=== PATIENT | male | born 1945 | race Caucasian/White ===

== ENCOUNTER → 2024-01-19 09:04 | Outpatient (REF) | payer MEDICARE, SELFPAY | LOC: RCS 09:04 | PROVIDERS: ATTENDING PHYSICIAN Internal Medicine Cardiovascular Disease; FAMILY PHYSICIAN Family Medicine | DX: I27.20 Pulmonary hypertension, unspecified (principal); I34.0 Nonrheumatic mitral (valve) insufficiency; I07.1 Rheumatic tricuspid insufficiency | CPT/HCPCS: 93306 ==

== ENCOUNTER 2024-02-29 13:09 | Emergency (ER) | payer MEDICARE, SELFPAY ==
[2024-02-29] VITALS (7 sets, daily range): BP systolic 146–176; BP diastolic 69–79; PULSE 85–91
--- NOTE | 2024-02-29 13:41 | ED.GENMED ---
ED Provider Triage
<Yoly Hancock HOMEOPATHIC DOCTOR - Last Filed: 03/01/24 13:20>
-
Patient seen by provider in Triage?: Seen in Triage
Attestation: A medical screening examination has been initiated by a qualified medical provider. Based on the assessment performed at this time, it has been determined that an emergent medical condition may exist and the patient has been informed
that further medical evaluation and possible additional diagnostic testing may be needed.
HPI: 78 yo male states 11 a.m. after eating toast and fruit, was working out in yard, taking down tent, raking leaves, felt lightheaded started to feel faint, walked to his deck, sat down, saw him go 'limp' she ran in and got water, poured it
on him. Covered him from the sun, shook and called him, neighbor put cold packs on him, he came to after about 30 seconds, neighbor took pulse, initially 40 then he drank and became more alert and HR was 52. Denies CP, SOB, abdominal pain.
GENERAL: Alert , in no apparent distress
EYE: No visual abnormalities
HEART: RRR. HR 65
LUNGS: No acute respiratory distress
NEUROLOGICAL: Alert and oriented
SKIN: Skin intact. No visible changes.
MUSCULOSKELETAL: Moving extremities normally
PSYCH: Normal and appropriate interaction.
This is a medical evaluation conducted in person to initiate diagnostic evaluation and provide initial therapeutics. Please see further documentation by the treating clinician.
History of Present Illness
<Yoly Hancock HOMEOPATHIC DOCTOR - Last Filed: 03/01/24 13:20>
General
Chief Complaint: Fainting/Passed Out
Time Seen by Provider: 02/29/24 16:47
<Winnie Ruiz MD, Resident - Last Filed: 02/29/24 19:33>
General
Source: patient and spouse
Nursing documentation reviewed up to this point in time: agreed with
History of Present Illness
History of Present Illness:
HPI:
78 yo male with a relevant PMHx of Atrial Flutter currently on treatment with Eliquis 5mg BID, presenting today for a syncope episode this afternoon, while performing some work outside his home at the patio under the sun.
Patient stated he wanted to take a break and seat while performing some work at his patio and upon attempting to seat he got to seat and subsequently LOC for around 20 seconds, until started throwing water at him slowly gaining consciousness
back.
Patient denies any confusion, dizziness, sudden weakness, or changes in vision - Pre or Post Syncope. He stated he has experienced this syncope episodes before in the past and states it was also associated with LOC for around ~20 sec, at that time
too; but while resting in the couch in the face of no physical activity nor external triggers about 2 years ago while at home.
If applicable-neuro sx onset
Onset of symptoms known: Yes
Date of onset of symptoms: 02/29/24
Time pt last seen normal is known: Yes
Date last time pt seen normal: 02/29/24
Time last time pt seen normal: 19:00
Past History
<Yoly Hancock, HOMEOPATHIC DOCTOR - Last Filed: 03/01/24 13:20>
Past History
ED Past Medical History: Arrthythmia (Atrial flutter) and HTN
ED Past Surgical History: Appendectomy
Social History
Tobacco: Non-smoker
<Winnie Ruiz MD, Resident - Last Filed: 02/29/24 19:33>
Past History
ED Past Medical History: Valvular disease
Patient has exhibited threatening behavior?: No
Review of Systems
<Winnie Ruiz MD, Resident - Last Filed: 02/29/24 19:33>
Review of Systems
All Other Systems: ROS reviewed and negative except as documented in HPI and ROS
Constitutional: Reports other (Generalized Post-Syncope Sweatiness )
EENT: Reports no symptoms
Respiratory: Reports no symptoms
Cardiac: Reports diaphoresis and syncope
ABD/GI: Reports nausea and vomiting
: Reports no symptoms
Musculoskeletal: Reports no symptoms
Skin: Reports no symptoms
Neurological: Reports other (Syncope / Denies any associated symptoms )
Endocrine: Reports temp intolerance
Hematologic/Lymphatic: Reports no symptoms
Psychiatric: Reports no symptoms
Phy Exam
<Jym Cb Ruiz MD, Resident - Last Filed: 02/29/24 19:33>
Physical Exam
Physical Exam:
VITALS - Stable / AF
PE:
Gen: AOOx3 / In NAD
HEENT: EOMI/THERESA
NEURO: No Speech difficulties or focal Deficits noted
Cardiac: No JVD, No LE Edema
Cardiovascular Exam
Cardiovascular Exam: no edema and no JVD
Neurological Exam
Neurological Exam: alert, oriented x3, no motor deficits, no sensory deficits, speech normal and normal gait
Musculoskeletal Exam
Musculoskeletal Exam: full ROM and no edema
Skin Exam
Skin Exam: normal color, no rash, no petechia and redness
Psychiatric Exam
Psychiatric Exam: normal mood/affect
Course
<Yoly Hancock, HOMEOPATHIC DOCTOR - Last Filed: 03/01/24 13:20>
Orders/Labs/Results
Orders:
Orders
02/29/24 13:11
Electrocardiogram (*1) Urgent
Reason for Study: Chest Pain
02/29/24 13:12
EKG- Treatment ONCE
02/29/24 13:53
Complete Blood Count/With Diff Urgent
02/29/24 17:09
Comprehensive Metabolic Panel Urgent
Troponin I Urgent
02/29/24 18:44
Orthostatic VS- Treatment ONCE
Abnormal Lab Results
02/29/24 02/29/24
13:53 17:09
WBC 14.2 H 10^3/uL
(4.8-10.8)
Hct 38.8 L %
(39.0-52.0)
MCV 79.7 L fL
(80.0-94.0)
Plt Count 405 H 10^3/uL
(130-400)
Abs Immat Gran (auto) 0.1 H 10^3/uL
(0-0.05)
Absolute Neuts (auto) 10.9 H 10^3/uL
(1.4-6.5)
Absolute Monos (auto) 1.1 H 10^3/uL
(0.1-0.6)
Neutrophils % 76.7 H %
(42.2-75.2)
Lymphocytes % 11.3 L %
(20.5-51.1)
Chloride 94 L mmol/L
(98-107)
Glucose 170 H mg/dl
(70-99)
Albumin 5.1 H g/dl
(3.5-5.0)
02/29/24 13:53
02/29/24 17:09
Vital Signs
Initial and Last Documented VS:
Initial Vital Signs
Temp Pulse Resp BP Pulse Ox
97.7 F 63 16 152/73 99
02/29/24 13:41 02/29/24 13:41 02/29/24 13:41 02/29/24 13:41 02/29/24 13:41
Last Documented Vital Signs
Temp Pulse Resp BP Pulse Ox
97.7 F 81 12 168/72 99
02/29/24 13:41 02/29/24 19:30 02/29/24 19:30 02/29/24 19:00 02/29/24 19:30
<Jym Cb Ruiz MD, Resident - Last Filed: 02/29/24 19:33>
Orders/Labs/Results
Orders:
Orders
02/29/24 13:11
Electrocardiogram (*1) Urgent
Reason for Study: Chest Pain
02/29/24 13:12
EKG- Treatment ONCE
02/29/24 13:53
Complete Blood Count/With Diff Urgent
02/29/24 17:09
Comprehensive Metabolic Panel Urgent
Troponin I Urgent
02/29/24 18:44
Orthostatic VS- Treatment ONCE
Abnormal Lab Results
02/29/24 02/29/24
13:53 17:09
WBC 14.2 H 10^3/uL
(4.8-10.8)
Hct 38.8 L %
(39.0-52.0)
MCV 79.7 L fL
(80.0-94.0)
Plt Count 405 H 10^3/uL
(130-400)
Abs Immat Gran (auto) 0.1 H 10^3/uL
(0-0.05)
Absolute Neuts (auto) 10.9 H 10^3/uL
(1.4-6.5)
Absolute Monos (auto) 1.1 H 10^3/uL
(0.1-0.6)
Neutrophils % 76.7 H %
(42.2-75.2)
Lymphocytes % 11.3 L %
(20.5-51.1)
Chloride 94 L mmol/L
(98-107)
Glucose 170 H mg/dl
(70-99)
Albumin 5.1 H g/dl
(3.5-5.0)
02/29/24 13:53
02/29/24 17:09
Vital Signs
Initial and Last Documented VS:
Initial Vital Signs
Temp Pulse Resp BP Pulse Ox
97.7 F 63 16 152/73 99
02/29/24 13:41 02/29/24 13:41 02/29/24 13:41 02/29/24 13:41 02/29/24 13:41
Last Documented Vital Signs
Temp Pulse Resp BP Pulse Ox
97.7 F 81 12 168/72 99
02/29/24 13:41 02/29/24 19:30 02/29/24 19:30 02/29/24 19:00 02/29/24 19:30
<Tong Macario MD - Last Filed: 02/29/24 22:12>
Orders/Labs/Results
Orders:
Orders
02/29/24 13:11
Electrocardiogram (*1) Urgent
Reason for Study: Chest Pain
02/29/24 13:12
EKG- Treatment ONCE
02/29/24 13:53
Complete Blood Count/With Diff Urgent
02/29/24 17:09
Comprehensive Metabolic Panel Urgent
Troponin I Urgent
02/29/24 18:44
Orthostatic VS- Treatment ONCE
Abnormal Lab Results
02/29/24 02/29/24
13:53 17:09
WBC 14.2 H 10^3/uL
(4.8-10.8)
Hct 38.8 L %
(39.0-52.0)
MCV 79.7 L fL
(80.0-94.0)
Plt Count 405 H 10^3/uL
(130-400)
Abs Immat Gran (auto) 0.1 H 10^3/uL
(0-0.05)
Absolute Neuts (auto) 10.9 H 10^3/uL
(1.4-6.5)
Absolute Monos (auto) 1.1 H 10^3/uL
(0.1-0.6)
Neutrophils % 76.7 H %
(42.2-75.2)
Lymphocytes % 11.3 L %
(20.5-51.1)
Chloride 94 L mmol/L
(98-107)
Glucose 170 H mg/dl
(70-99)
Albumin 5.1 H g/dl
(3.5-5.0)
02/29/24 13:53
02/29/24 17:09
Vital Signs
Initial and Last Documented VS:
Initial Vital Signs
Temp Pulse Resp BP Pulse Ox
97.7 F 63 16 152/73 99
02/29/24 13:41 02/29/24 13:41 02/29/24 13:41 02/29/24 13:41 02/29/24 13:41
Last Documented Vital Signs
Temp Pulse Resp BP Pulse Ox
97.7 F 81 12 168/72 99
02/29/24 13:41 02/29/24 19:30 02/29/24 19:30 02/29/24 19:00 02/29/24 19:30
<Winnie Ruiz MD, Resident - Last Filed: 02/29/24 19:33>
*Critical Care Note
Total Time (30-74mins, 75-104mins- exclusive of procedures): Not Applicable (~45 Min.)
ED Attending Note
<Yoly Hancock NP - Last Filed: 03/01/24 13:20>
-
Portions of this chart may have been created with voice recognition software.� Occasional wrong word or��sound alike� substitutions may have occurred due to the inherent limitations of voice recognition software.
<Tong Macario MD - Last Filed: 02/29/24 22:12>
ED Attending Note
Patient seen and examined by attending physician: Yes
ED Attending Note:
Patient presents to ED for an evaluation after witnessed syncopal episode at home, lasting approximately 20 seconds. Patient states that he was out in the backyard working for approximately 2 hours, prior to lunch, when he felt tired and wanted to
sit down. He was able to walk back to his deck and sat down on a chair. This is when his who was nearby noticed patient slumping over. immediately attends the patient and he woke up immediately. When he did wake up, patient was not
confused, but was at his baseline mental status. Patient denies preceding dizziness or chest palpitations. Even when he woke up, patient states that he did not have any symptoms. However, patient did have 1 vomiting episode shortly after he woke
up. In addition, his neighbor who is a nurse, came and checked him out. His pulse was noted to be low, which improved over time. Patient reports having had similar passing out experience lasting very short duration 2 or 3 years ago. At the time
of evaluation ED, patient is without any complaints, and requesting to be discharged home.
Physical Exam
General: no apparent distress, not acutely ill. afebrile
Head: nc/at. eomi
Neck: supple. no meningeal signs.
Heart: s1/s2 regular rate and rhythm, no murmur. equal radial pulses.
Lungs: no acute respiratory distress. clear bilaterally
Abdomen: normal bowel sounds. not tender.
Neuro: alert and oriented. no focal neurological deficits
Skin: no rash
Psychiatric: well kept. interactive and cooperative
Extremities: no edema. no calf tenderness.
Patient with an unremarkable workup in ED, including blood work, EKG, and orthostatic vital signs. Patient remains asymptomatic with stable vital signs during observation. Patient's presenting symptoms likely vasovagal syncope, secondary to
dehydration along with lack of oral intake. Patient otherwise is stable to be discharged home, with recommendation to follow-up with PCP as an outpatient. Patient and spouse expressed understanding at time of discharge.
Discharge Plan
Departure
Patient Disposition: Home (Routine Discharge)
Date of Disposition: 02/29/24
Time of Disposition: 19:37
Patient with high blood pressure during this ER visit?: Yes
Discharge Problem:
Vasovagal syncope
Instructions: Vasovagal Response (DC)
Prescriptions:
No Action
Eliquis
5 mg PO BID
amlodipine
10 mg PO DAILY
magnesium oxide
400 mg PO DAILY
sotalol
80 mg PO BID
valsartan
80 mg PO DAILY
Activity Restrictions/Additional Instructions:
As discussed, please follow-up with your primary care physician for reevaluation.
Interventions
Interventions:
*Risk Screen - Suicide Last Done: 02/29/24 18:26
*General Assessment Last Done: 02/29/24 18:26
*Neglect/Abuse Screening Last Done: 02/29/24 18:26
ED- Fall Risk Assessment Last Done: 02/29/24 17:30
*ED COVID-19 Vaccine History Last Done: 02/29/24 13:41
*Nursing Disposition Last Done: 02/29/24 19:51
ED- Cardiac Assessment Last Done: 02/29/24 17:30
ED- Neurological Assessment Last Done: 02/29/24 17:30
Discharge Date and Time
Discharge Date/Time: 02/29/24 19:52
Print Language: ARMENIAN
[2024-02-29 14:06] LABS: % Basophils 0.4 % (0-2); % Eosinophils 3.5 % (0-6); % Immature Granulocytes 0.4 % (0-0.5); % Lymphocytes 11.3 % (20.5-51.1); % Monocytes 7.7 % (1.7-9.3); % Neutrophils 76.7 % (42.2-75.2); Absolute Basophils 0.1 10^3/uL (0-0.2); Absolute Eosinophils 0.5 10^3/uL (0-0.7); Absolute Immature Granulocytes 0.1 10^3/uL (0-0.05); Absolute Lymphocytes 1.6 10^3/uL (1.2-3.4); Absolute Monocytes 1.1 10^3/uL (0.1-0.6); Absolute Neutrophils 10.9 10^3/uL (1.4-6.5); Hematocrit 38.8 % (39.0-52.0); Hemoglobin 13.4 g/dL (13.0-18.0); Mean Corp Hgb Conc. 34.5 g/dL (33.0-37.0); Mean Corpuscular Hgb 27.5 pg (27.0-31.0); Mean Corpuscular Volume 79.7 fL (80.0-94.0); Mean Platelet Volume 9.1 fL (7.4-10.4); Nucleated Red Blood Cells % 0 % (-); Platelet Count 405 10^3/uL (130-400); Red Blood Cell Count 4.87 10^6/uL (4.70-6.10); Red Cell Dist. Width 14.5 % (11.5-14.5); White Blood Cell Count 14.2 10^3/uL (4.8-10.8)
[2024-02-29 17:44] LABS: ALT (SGPT) 29 U/L (0-50); AST (SGOT) 26 U/L (17-59); Albumin 5.1 g/dl (3.5-5.0); Alkaline Phosphatase 52 U/L (38-126); Blood Urea Nitrogen 15 mg/dl (9-20); Calcium 10.1 mg/dl (8.4-10.2); Carbon Dioxide 26 mmol/L (22-30); Chloride 94 mmol/L (98-107); Glucose 170 mg/dl (70-99); Potassium 4.4 mmol/L (3.5-5.1); Sodium 136 mmol/L (135-145); Total Bilirubin 0.8 mg/dl (0.2-1.3); eGFR > 60.00
[2024-02-29 17:45] LABS: Troponin I < 0.012 ng/ml
== END 2024-02-29 19:52 | disposition home or self-care (01) ==
LOC: EMR 13:09
PROVIDERS: Registered Nurse; EMERGENCY PHYSICIAN Emergency Medicine; FAMILY PHYSICIAN Nurse Practitioner Acute Care
DX: R55 Syncope and collapse (principal); Y93.H1 Activity, digging, shoveling and raking; I48.92 Unspecified atrial flutter; I10 Essential (primary) hypertension; Z90.49 Acquired absence of other specified parts of digestive tract
CPT/HCPCS: 99283; 80053; 84484; 85025; 93005

== ENCOUNTER 2024-04-05 10:48 | Outpatient (RCR) | payer MEDICARE, SELFPAY | END 2024-04-05 23:59 | disposition home or self-care (01) | LOC: RPT 10:48 | PROVIDERS: ATTENDING PHYSICIAN Family Medicine | DX: M47.896 Other spondylosis, lumbar region (principal); Z73.6 Limitation of activities due to disability; R26.89 Other abnormalities of gait and mobility | CPT/HCPCS: 97110; 97162 ==

== ENCOUNTER 2024-05-03 08:51 | Outpatient (RCR) | payer MEDICARE, SELFPAY | END 2024-05-03 23:59 | disposition home or self-care (01) | LOC: RPT 08:51 | PROVIDERS: ATTENDING PHYSICIAN Family Medicine | DX: M47.896 Other spondylosis, lumbar region (principal); Z73.6 Limitation of activities due to disability; R26.89 Other abnormalities of gait and mobility | CPT/HCPCS: 97010; 97110; 97112; 97164 ==

== ENCOUNTER 2024-05-13 15:27 | Outpatient (RCR) | payer MEDICARE, SELFPAY | END 2024-05-16 07:42 | disposition home or self-care (01) | LOC: RPT 15:27 | PROVIDERS: ATTENDING PHYSICIAN Family Medicine | DX: M47.896 Other spondylosis, lumbar region (principal); H81.10 Benign paroxysmal vertigo, unspecified ear; Z73.6 Limitation of activities due to disability; R26.89 Other abnormalities of gait and mobility | CPT/HCPCS: 97110 ==

== ENCOUNTER 2024-08-10 19:52 | Inpatient (IN) | payer MEDICARE, SELFPAY ==
[2024-08-10 17:13] VITALS: BP 163/65
[2024-08-10 17:18] VITALS: BMI 28.7
[2024-08-10 17:28] LABS: % Basophils 0.4 % (0-2); % Eosinophils 0.5 % (0-6); % Immature Granulocytes 0.6 % (0-0.5); % Lymphocytes 5.7 % (20.5-51.1); % Monocytes 11.9 % (1.7-9.3); % Neutrophils 80.9 % (42.2-75.2); Absolute Basophils 0.1 10^3/uL (0-0.2); Absolute Eosinophils 0.1 10^3/uL (0-0.7); Absolute Immature Granulocytes 0.1 10^3/uL (0-0.05); Absolute Lymphocytes 0.8 10^3/uL (1.2-3.4); Absolute Monocytes 1.7 10^3/uL (0.1-0.6); Absolute Neutrophils 11.2 10^3/uL (1.4-6.5); Hematocrit 35.8 % (39.0-52.0); Hemoglobin 12.3 g/dL (13.0-18.0); Mean Corp Hgb Conc. 34.4 g/dL (33.0-37.0); Mean Corpuscular Hgb 27.7 pg (27.0-31.0); Mean Corpuscular Volume 80.6 fL (80.0-94.0); Mean Platelet Volume 9.5 fL (7.4-10.4); Nucleated Red Blood Cells % 0 % (-); Platelet Count 298 10^3/uL (130-400); Red Blood Cell Count 4.44 10^6/uL (4.70-6.10); Red Cell Dist. Width 14.4 % (11.5-14.5); White Blood Cell Count 13.9 10^3/uL (4.8-10.8)
--- NOTE | 2024-08-10 17:31 | ED.GENMED ---
History of Present Illness
General
Chief Complaint: Breathing Problem
Source: patient
Exam Limitations: none
Time Seen by Provider: 08/10/24 17:12
Nursing documentation reviewed up to this point in time: agreed with
History of Present Illness
History of Present Illness:
Patient is an 79-year-old male with past medical history of a flutter/cardioversion and ablation on Eliquis, (has not missed a dose of Eliquis )hypertension presents to the ER for evaluation. Patient started with a cough last night into today and
reports around 2 to 4 PM he had a lot of coughing. Prior to arrival he had a coughing fit and was standing in his house and felt like he was in a pass out and apparently did. Patient apparently was hypoxic for EMS was placed on nonrebreather.
Patient feels mildly short of breath on arrival he denies any chest pain. He denies any fever chills.
Past History
Past History
ED Past Medical History: Arrthythmia (Atrial flutter), HTN and Valvular disease
ED Past Surgical History: Appendectomy
Patient has exhibited threatening behavior?: No
Social History
Tobacco: Non-smoker
Review of Systems
Review of Systems
Allergies reviewed?: Yes
All Other Systems: ROS reviewed and negative except as documented in HPI and ROS
Constitutional: Reports fever
EENT: Reports no symptoms
Respiratory: Reports cough and trouble breathing
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
ABD/GI: Reports no symptoms
: Reports no symptoms
Musculoskeletal: Reports no symptoms
Skin: Reports no symptoms
Neurological: Reports no symptoms; Denies headache
Psychiatric: Reports no symptoms
Phy Exam
General Physical Exam
General Presentation: no apparent distress
General age: appears stated age
General Skin: warm and dry
General Habitus: elderly
General Mental: alert
General Hydration: appears well hydrated
Cardiovascular Exam
Cardiovascular Exam: regular rate/rhythm, no murmur and normal peripheral pulses
Pulmonary Exam
Pulmonary Exam: lungs clear
Neurological Exam
Neurological Exam: alert and oriented x3
Musculoskeletal Exam
Musculoskeletal Exam: full ROM
Skin Exam
Skin Exam: normal color and warm/dry
Scores
Heart Failure Risk
Heart Failure Risk Score: Not Applicable
Course
Orders/Labs/Results
Orders:
Orders
08/10/24 Dinner
Cholesterol Lowering
At Your Request: Limited, Film Numberer Required
Fluid Restriction: 1440 mL/day (48 oz)
Cholesterol Lowering: Sodium, 2 Gram
08/10/24 17:17
Electrocardiogram (*1) Urgent
Reason for Study: Syncope
EKG- Treatment ONCE
08/10/24 17:19
BNP [NT-proBNP] Urgent
Comment: ADDON
Complete Blood Count/With Diff Urgent
Comprehensive Metabolic Panel Urgent
Troponin I Urgent
Comment: ADDON
08/10/24 17:30
CT Cervical Spine W/o Iv Contr Urgent
Comment:
Reason For Exam: trauma
CT Head W/o Iv Contrast Urgent
Comment:
Reason For Exam: trauma
Chest [CR Chest - 2 Views ] Urgent
Comment:
Reason For Exam: cough/sob
08/10/24 17:32
COVID-19 Antigen Urgent
Source: Nasal Swab
Influenza A+B Rapid Molecular Urgent
PERI Source: Nasal Swab
Specimen Description:
0.9% Sodium Chloride 500 ml [Nss] 500 ml IV BOLUS
08/10/24 18:41
CefTRIAXone [Rocephin] 1,000 mg IV NOW STA
08/10/24 18:42
Azithromycin 500 mg/250 ml [Zithromax Infusion] 500 mg in 250 ml IV NOW
08/10/24 19:01
Lactic Acid Q4H
Comment: CANCEL 2nd LACTIC ACID IF 1st LACTIC ACID IS LESS THAN 2
Blood Culture Q30M
PERI Source: Blood/Venous
Specimen Description:
08/10/24 19:08
Admit/Transfer Patient As Directed
Co-Sign Provider:
Level of Care: Inpatient admission
Assign to:: Telemetry
Physician / Group: Jeff Shankar
Diagnosis: Covid, Pneumonia, hyponatremia
Reason for Telemetry: Syncope
Date to Stop Telemetry: 08/12/24
Time to Stop Telemetry: 11:00
Reason for Hospitalization: Covid, Pneumonia, hyponatremia
Expected length of stay greater than two midnights?: Yes
ELOS- Estimated Length of Stay in days: 3
I certify the patient meets the requirements for IP care: Yes
08/10/24 19:09
PRN Pain Medication Management As Directed
May give lesser potent ordered pain med per pt: Yes
preference::
Protocol:: Medication orders for pain may be administered in a
manner that supports deferring to patient preference
when the pt is:
- Requesting an ordered lesser potent pain medication.
Least to most potent pain medications are defined
as: acetaminophen < NSAID < tramadol < opioids
(morphine, oxycodone, hydromorphone).
- Requesting a lesser dose of the same medication IF
ORDERED.
- Requesting a less intrusive route of administration
if both routes are prescribed by the provider (PO <
IV).
08/10/24 19:10
Code Status As Directed
Resuscitation Status: Full Code
Blood Culture Q30M
PERI Source: Blood/Venous
Specimen Description:
08/10/24 19:12
Sterile Water [Sterile Water For Injection] 10 ml .ROUTE .STK-MED ONE
08/10/24 19:18
Aspirin 325 mg PO NOW STA
Doxycycline Hyclate [Vibramycin] 100 mg 0.9% Sodium Chloride 250 ml [Nss] 250 ml IV NOW
08/10/24 20:37
Acetaminophen [Tylenol] 650 mg PO Q4HPRN PRN
Apixaban [Eliquis] 5 mg PO BID
Remdesivir [Veklury] 200 mg 0.9% Sodium Chloride 250 ml [Nss] 210 ml IV ONCE
Patient has been symptomatic for </= 10 days?: Yes
Patient's SpO2 </= 94% on room air OR requiring oxygen?: Yes
Sotalol [Betapace] 80 mg PO BID
08/10/24 20:37
CARDIOLOGY CONSULT Routine
Consulting Provider: Merry Levine
Was physician already notified: Yes
Activity As Directed
Activity Level: Out of Bed-Early Mobility
Orthostatic Vital Signs As Directed
Orthostatic VS Frequency: BID
Vital Signs As Directed
Frequency: Per unit guidelines
Weight As Directed
Frequency: Once
Comment: on admission
08/10/24 20:46
Triamcinolone Acetonide [Triamcinolone Acetonide 0.5% Cream] 1 applic TOPICAL DAILYPRN PRN
08/10/24 22:00
Dexamethasone Sod Phosphate [Decadron] 6 mg IV Q24H
08/10/24 23:15
Troponin I Q6H
08/11/24 05:32
Basic Metabolic Panel IN AM
Complete Blood Count/No Diff IN AM
Troponin I Q6H
08/11/24 08:00
Amlodipine [Norvasc] 10 mg PO DAILY
Ascorbic Acid [Vitamin C] 500 mg PO DAILY
Cholecalciferol (Vitamin D3) [VITAMIN D3 (cholecalciferol)] 25 mcg PO DAILY
Doxycycline Hyclate [Vibramycin] 100 mg 0.9% Sodium Chloride 250 ml [Nss] 250 ml IV Q12H
Magnesium l-Lactate [Mag-Tab Sr] 84 mg PO DAILY
08/11/24 12:00
Remdesivir [Veklury] 100 mg 0.9% Sodium Chloride 250 ml [Nss] 230 ml IV DAILY@1200
08/12/24 11:00
DC Protocol for Telemetry ONCE
Abnormal Lab Results
08/10/24 08/10/24
17:19 17:32
WBC 13.9 H 10^3/uL
(4.8-10.8)
RBC 4.44 L 10^6/uL
(4.70-6.10)
Hgb 12.3 L g/dL
(13.0-18.0)
Hct 35.8 L %
(39.0-52.0)
Abs Immat Gran (auto) 0.1 H 10^3/uL
(0-0.05)
Absolute Neuts (auto) 11.2 H 10^3/uL
(1.4-6.5)
Absolute Lymphs (auto) 0.8 L 10^3/uL
(1.2-3.4)
Absolute Monos (auto) 1.7 H 10^3/uL
(0.1-0.6)
Immature Gran % 0.6 H %
(0-0.5)
Neutrophils % 80.9 H %
(42.2-75.2)
Lymphocytes % 5.7 L %
(20.5-51.1)
Monocytes % 11.9 H %
(1.7-9.3)
Sodium 129 L mmol/L
(135-145)
Chloride 93 L mmol/L
(98-107)
Carbon Dioxide 21 L mmol/L
(22-30)
Glucose 173 H mg/dl
(70-99)
Troponin I 0.035 H* ng/ml
SARS-CoV-2 Antigen Positive A
(Negative)
08/10/24 17:19
08/10/24 17:19
Vital Signs
Initial and Last Documented VS:
Initial Vital Signs
Temp Pulse Resp BP Pulse Ox
98.2 F 97 30 163/65 87
08/10/24 17:13 08/10/24 17:13 08/10/24 17:13 08/10/24 17:13 08/10/24 17:13
Last Documented Vital Signs
Temp Pulse Resp BP Pulse Ox
99.0 F 69 19 149/66 97
08/11/24 23:24 08/11/24 23:24 08/11/24 23:24 08/11/24 23:24 08/12/24 00:49
Sales Planner consulted with Physician
Sales Planner consulted with physician?: Yes
Name of Physician Consulted: Ilia
MDM/Problems Addressed
MDM/Problems Addressed:
As documented patient is a 79-year-old male with history of a flutter on Eliquis has not skipped a dose presenting to the ER for evaluation. Patient started with a cough last night and had a coughing fit prior to arrival and then had a syncopal
episode. This does sound like more of a vagal response. Upon EMS arrival he was short of breath and patient presented short of breath and hypoxic here. Pt placed on Oxygen NC.
He presented normal sinus rhythm no complaints of fever chills. Patient's COVID was found to be positive and on x-ray x-ray it appears there is a left lower lobe pneumonia. Patient does have an elevated white count though he is afebrile will
check blood cultures and lactic. In addition patient was found to have low sodium of 129. Cardiac troponin was done prior to my exam and cardiac troponin is elevated 4080. He has no history of CHF. Patient's troponin is also elevated though no
chest pain no acute findings on EKG.
*Radiology
Radiology exam reviewed: radiology read reviewed
*Pulse Oximetry
Patient hypoxic: yes
*EKG
Interpreted by ED Provider?: Yes
Interpretation: normal
Heart Rate: 92
Rate: normal
Rhythm: sinus
*Critical Care Note
Total Time (30-74mins, 75-104mins- exclusive of procedures): Not Applicable
ED Attending Note
-
Portions of this chart may have been created with voice recognition software.� Occasional wrong word or��sound alike� substitutions may have occurred due to the inherent limitations of voice recognition software.
Discharge Plan
Departure
Patient Disposition: Admit
Date of Disposition: 08/10/24
Time of Disposition: 18:47
Admit to: Telemetry
Admit to doctor: hospitalist
Presentation/result/management discussed w/ accepting MD/DO: Hospitalist
Patient with high blood pressure during this ER visit?: Yes
Condition: Fair
Covid-19: Confirmed COVID-19
Discharge Problem:
COVID-19, Syncope, Acute hyponatremia, hypoxia
Interventions
Interventions:
*Risk Screen - Suicide Last Done: 08/10/24 21:34
*General Assessment Last Done: 08/10/24 17:26
*Neglect/Abuse Screening Last Done: 08/10/24 17:26
*ED- Fall Risk Assessment Last Done: 08/10/24 17:26
*ED COVID-19 Vaccine History Last Done: 08/10/24 21:34
*Nursing Disposition Last Done: 08/10/24 20:33
ED- Cardiac Assessment Last Done: 08/10/24 17:22
ED- Pulmonary Assessment Last Done: 08/10/24 17:22
Discharge Date and Time
Discharge Date/Time: 08/10/24 20:35
[2024-08-10 17:46] LABS: NT-proBNP 4080 pg/ml
[2024-08-10 17:49] LABS: ALT (SGPT) 23 U/L (0-50); AST (SGOT) 25 U/L (17-59); Albumin 4.9 g/dl (3.5-5.0); Alkaline Phosphatase 63 U/L (38-126); Blood Urea Nitrogen 18 mg/dl (9-20); Calcium 9.3 mg/dl (8.4-10.2); Carbon Dioxide 21 mmol/L (22-30); Chloride 93 mmol/L (98-107); Estimated Creatinine Clearance 76 ml/min; Glucose 173 mg/dl (70-99); Potassium 4.5 mmol/L (3.5-5.1); Sodium 129 mmol/L (135-145); Total Protein 7.4 g/dl (6.3-8.2); eGFR > 60.00
[2024-08-10 18:02] LABS: COVID-19 Antigen Positive (Negative)
[2024-08-10 18:16] VITALS: BP 150/79
[2024-08-10 18:27] LABS: Troponin I 0.035 ng/ml
--- NOTE | 2024-08-10 18:47 | HPS.HSE ---
Family Physician
-
Family Physician: Raiza Virgen MD
Chief Complaint
-
near syncope
History of Present Illness
Patient is a 79-year-old male with past medical history significant for essential hypertension and atrial flutter who presented to [facility] ED for evaluation of near syncope after uncontrollable coughing. Patient reports that he started with felt like a
head cold the other day and coughing started last night. Today he had a period of coughing where he could not stop while standing. This coughing fit resulted in near syncopal episode and a fall without injury. Patient was found to be hypoxic by EMS
and placed on NRB mask. Patient states he has had some mild shortness of breath. He denies any fever, chills, chest pain, nausea, vomiting, constipation, diarrhea or urinary symptoms.
Medical History
Past Medical History
Past Medical History: Reports Other
Additional Past Medical History:
essential hypertension
atrial flutter
Past Surgical History: Reports Other
Additional Past Surgical History:
cardiac ablation for a flutter 2018
appendicitis 195
right hip replacement 01/05/23
Social History
Tobacco: Non-smoker
Alcohol: None
Drug: None
Personal:
Living: With Family
Employment: Employed
Family History
Family History: Not pertinent
Allergies / Home Medications
Allergies reflects when Allergies were last updated in [facility].
Home Medications with original date entered in [facility]
Allergy/Medication List:
Allergies
Allergy/AdvReac Type Severity Reaction Status Date / Time
Sulfa (Sulfonamide Allergy Rash Verified 08/10/24 17:12
Antibiotics)
Home Medications
amlodipine 10 mg tablet 10 mg PO DAILY 02/13/22
apixaban 5 mg tablet (Eliquis) 5 mg PO BID 02/13/22
magnesium oxide 400 mg PO DAILY 02/13/22
sotalol 80 mg tablet 80 mg PO BID 02/13/22
ascorbic acid (vitamin C) 500 mg tablet (Vitamin C) 500 mg PO DAILY 08/10/24
betamethasone dipropionate 0.05 % topical cream 1 applic topical DAILYPRN PRN eczema 08/10/24
cholecalciferol (vitamin D3) 25 mcg (1,000 unit) tablet (Vitamin D3) 25 mcg PO DAILY 08/10/24
glucosamine sulfate 500 mg tablet (Glucosamine) 500 mg PO DAILY 08/10/24
Review of Systems
-
History Source: Patient
Constitutional: Reports No Symptoms
EENT: Reports No Symptoms
Respiratory: Reports Cough and Trouble Breathing
Cardiac: Reports Syncope (near syncope )
Abdomen/GI: Reports No Symptoms
: Reports No Symptoms
Musculoskeletal: Reports No Symptoms
Skin: Reports No Symptoms
Neurological: Reports No Symptoms
Endocrine: Reports No Symptoms
Hematologic/Lymphatic: Reports No Symptoms
Psych: Reports No Symptoms
Physical Exam
Vital Signs
Vital Signs
Temp Pulse Resp BP Pulse Ox
98.2 F 89 30 150/79 99
08/10/24 17:13 08/10/24 18:16 08/10/24 17:13 08/10/24 18:16 08/10/24 18:24
Physical Exam
General: Well Developed, Well Nourished, No Apparent Distress, Comfortable, Conversant and Obese
HEENT: NormoCephalic, Moist mucous membranes, Atraumatic, [place] Conjunctivae, Nose Appears Normal and Ears Appear Normal
Respiratory: Clear and Non Labored Respirations
Cardiac: S1/S2 and Regular Rhythm
Breast: Deferred by me
GI: Soft, Non Tender, Non Distended and Normal Bowel Sounds; No Organomegaly
Rectal: Deferred by Provider
Genito-urinary: Deferred by me
Musculoskeletal: No Clubbing, No Cyanosis and No Edema
Skin: No Rash
Neuro: Awake, Alert, AO x 3 and Nonfocal/grossly intact
Psych: Calm and Intact Judgment/Insight
Laboratory Results
-
08/10/24 17:19
08/10/24 17:19
Laboratory Results
Total Bilirubin 1.0 mg/dl (0.2-1.3) 08/10/24 17:19
AST 25 U/L (17-59) 08/10/24 17:19
ALT 23 U/L (0-50) 08/10/24 17:19
Alkaline Phosphatase 63 U/L (38-126) 08/10/24 17:19
Troponin I 0.035 ng/ml H* 08/10/24 17:19
Data Reviewed
-
Diagnostic Radiology: Report Reviewed by me (CXR: Left lower lobe infiltrate consistent with pneumonia. There is a trace left parapneumonic effusion.)
CT Scan: Report Reviewed by me (Head: No acute intracranial abnormality noted.; C-spine: No acute osseous abnormality. Multilevel moderate degenerative changes most pronounced at C5-C6 and C6-C7. )
Medical Tests (Nuc Med, Echo, EKG etc): Report Reviewed by me (EKG: NORMAL SINUS RHYTHM)
Lab Data: Labs Reviewed by me (WBC 13.9, Neut 80.9, Na 129, Trop 0.035, BNP 4080)
Impression/Plan
-
IMPRESSION/PLAN:
#pneumonia
#Covid
CXR: Left lower lobe infiltrate consistent with pneumonia. There is a trace left parapneumonic effusion.
- Admit to telemetry
- IV antibiotics
- Remdesivir
- dexamethasone
- supportive care
#hyponatremia
Na+ 129
- IVF bolus
- monitor BMP
#near syncope with fall no injuries
likely 2/2 vagal response when coughing
Head CT: No acute intracranial abnormality noted.
C-Spine CT: No acute osseous abnormality.
Multilevel moderate degenerative changes most pronounced at C5-C6 and C6-C7.
- monitor on telemetry
- orthostatic VS
#elevated troponin and BNP
no chest pains reported
Trop 0.035, BNP 4080
- trend troponin
- Consult cardiology
- give ASA
#essential hypertension
- continue amlodipine
#atrial flutter
s/p cardiac ablation
EKG: NORMAL SINUS RHYTHM
- continue Eliquis and sotalol
Code status: full code
DVT prophylaxis: Eliquis
[2024-08-10 19:00] VITALS: BP 155/68
--- NOTE | 2024-08-10 19:08 | W.PN.UPDATE ---
Update Note
Progress Note Update
Patient evaluated in conjunction with RESEARCH DIRECTOR., I agree with the findings on history and physical. I concur with assessment and plan.
Briefly, this is a 79-year-old with past medical history significant for atrial flutter status post ablation currently on anticoagulation with apixaban, history of diastolic dysfunction without any evidence of volume overload in the past with last
echocardiogram showing preserved EF, presenting to the emergency department with cold symptoms, incessant coughing, shortness of breath, presyncopal episode.
Patient reports being in usual state of health up until onset of symptoms. He said he is actually had some dyspnea on exertion for several weeks now and he last saw his college specialist in May when he was told that his cardiac condition was stable.
He has not noticed any ankle edema. He has not noticed any orthopnea or PND. He reports that after walking about 1 mile he gets winded easily. He denies having any chest pain. He denies any exertional chest pain. He denies any palpitations and
reports that since his ablation he has not had any symptoms of his atrial flutter. Patient reports that he arose this morning with of flulike symptoms of head cold. [place] weak. At lunchtime he started coughing. Initially his cough was
nonproductive however when EMS arrived he seemed that they have coughed up something. States due to up to get ready to come to the emergency department he had brief period of unresponsiveness and lightheadedness lasting about 1 or 2 seconds. He
came to himself. He denies having fevers or chills at home. Unaware of any sick contacts. He has no recent hospitalizations since 2020. He has not received any antibiotics in over 4 months.
In the emergency department he has remained afebrile with a temp of 98.2, he was hypoxic to 88% on room air and is now on 2 L nasal cannula, blood pressure was 150/80 with a pulse of 89. ECG showed normal sinus rhythm at a rate of [address] or T wave changes. Troponin was 0.035. He has a positive COVID test. Influenza negative. Lactate pending. Chest x-ray is concerning for subtle left lower lobe infiltrate. CBC with leukocytosis to 14 otherwise unremarkable.
Electrolytes BUN and creatinine were notable for a sodium of 129 but otherwise unremarkable. He is BNP is elevated at 4000 without any priors to compare.
Assessment and plan
79-year-old male with history of diastolic dysfunction and atrial flutter status post ablation on sotalol and apixaban who presents with acute episode of respiratory complaints including cough and shortness of breath found to have a left lower lobe
infiltrate on x-ray. He is afebrile here but hypoxic. Found to have a positive COVID test. Given recent onset of symptoms he likely does have COVID however cannot rule out bacterial pneumonia. Sodium was 129 likely in the setting of an acute
infection. He is euvolemic appearing without any JVD, lung crackles or ankle edema on examination. His lungs do not show pulmonary edema but cannot rule out that a trace pleural effusion.
Slight Trop elevation - no chest pain, no ecg ischemia. Suspect NIMI with diastolic dysfunction
Will admit to telemetry for evaluation of syncope
For evaluation of chronic dyspnea on exertion, elevated BNP will repeat an echocardiogram,
Will give aspirin 325 x 1, continue eliquis, trend troponin
cardiology consult.
Pneumonia - Either COVID 19 or bacterial. Given leukocytosis and focal consolidation suspect bacterial pneumonia with covid infection
- treat empirically with ceftriaxone/doxycyline for now. Check procal in am
- supportive nebs, anti-tussives prn
- incentive spirometry
COVID 19 - Hypoxia, patient with high risk for decompensation
- dexamethasone 6mg daily
- remdesivir protocol
Aflutter - s/p ablation and stable
- continue sotalol
- apixaban for AC
Elevated BNP - I suspect chronic compensated diastolic dysfunction. No evidence of volume overload. Reports weeks of dyspnea on exertion with walking exercises but no chest pain.
- echo as above
- cardiology consult
Hyponatremia - Acute on chronic. Na 129. No overt volume overload
- given 500 ml bolus ns in ED
- normotensive sitting, check orthostatics
- monitor am sodium and check urine na and osm
DVT PPX - on apixaban
Code status - Full Code
[2024-08-10] MEDS: ROCEPHIN 1000 MG IV (19:19)
[2024-08-10 19:26] LABS: Lactic Acid 1.2 mmol/L (0.7-2.0)
[2024-08-10] MEDS: ASPIRIN 325 MG PO (19:43)
[2024-08-10] MEDS: VIBRAMYCIN 260 MG IV (19:48)
[2024-08-10 20:00] VITALS: BP 140/65
[2024-08-10 21:19] VITALS: BP 135/62; BMI 28.2
[2024-08-10 21:49] VITALS: BMI 28.2
[2024-08-10] MEDS: ELIQUIS 5 MG PO (21:55)
[2024-08-10] MEDS: DECADRON 6 MG IV (21:55)
[2024-08-10] MEDS: VEKLURY 250 MG IV (21:56)
[2024-08-10] MEDS: BETAPACE 80 MG PO (22:08)
[2024-08-10 23:31] VITALS: BP 119/54
[2024-08-11] VITALS (8 sets, daily range): BP systolic 128–153; BP diastolic 59–75; PULSE 71–77
[2024-08-11 05:55] LABS: Hematocrit 31.7 % (39.0-52.0); Hemoglobin 11.1 g/dL (13.0-18.0); Mean Corpuscular Hgb 28.1 pg (27.0-31.0); Mean Corpuscular Volume 80.3 fL (80.0-94.0); Platelet Count 271 10^3/uL (130-400); Red Blood Cell Count 3.95 10^6/uL (4.70-6.10); Red Cell Dist. Width 14.3 % (11.5-14.5); White Blood Cell Count 7.7 10^3/uL (4.8-10.8)
--- NOTE | 2024-08-11 06:07 | PTCARENOTE ---
08/10 ~1700 Troponin 0.035
08/11 ~0030 Troponin 1.340 LUMBER SCALER notified. No new orders at this time, additional troponin level ordered for the AM.
08/11 ~0530 Troponin 1.6 LUMBER SCALER notified. Repeat troponin ordered 1200.
[2024-08-11 06:20] LABS: Blood Urea Nitrogen 19 mg/dl (9-20); Carbon Dioxide 24 mmol/L (22-30); Chloride 95 mmol/L (98-107); Estimated Creatinine Clearance 87 ml/min; Glucose 156 mg/dl (70-99); Potassium 4.8 mmol/L (3.5-5.1); Sodium 128 mmol/L (135-145); eGFR > 60.00
[2024-08-11 07:09] LABS: Hepatitis C Antibody Negative (Negative)
[2024-08-11 07:56] LABS: Glucose - Point of Care 146 mg/dl (70-99)
--- NOTE | 2024-08-11 08:11 | CON.CAR ---
Addendum entered and electronically signed by Nico Farmer MD 08/11/24 09:46:
79 yo male with PMH of atrial flutter s/p ablation, moderate MR, pulm HTN, vasovagal syncope. Admitted with syncope after coughing. Found to have COVID PNA. Exam with RRR, II/ systolic murmur at apex, no edema. TnI 1.6. EKG: NSR, 1st degree AVB,
no ischemic changes.
Syncope. Likely vasovagal in setting of coughing and COVID PNA. Trend tele. Check echo.
Elevated troponin. Suspect acute non-ischemic myocardial injury in setting of COVID PNA. Check echo. Trend to peak.
Original Note:
Consultation
Consultation Request
Date/Time Consultation Requested: 08/10/242036
Date/Time Consultation Performed: 08/11/24811
Requesting Provider: Rosa Sesay NP
Performing Provider: Carmelina KOEHLER for Dr. Farmer
Reason for Consultation: abnormal troponin
Medical History
-
Chief Complaint: cough, near syncope
History of Present Illness:
79 y/o male (patient of Dr. Rivera) with atrial flutter (s/p CTI ablation), moderate MR, moderate pulm HTN, and HTN who is here for coughing fit yesterday that lead to suspected brief syncope (held onto wall and brought himself down, but thinks he
had brief LOC - about a second- witnessed by ). He was not injured. He felt that he had a cold leading up to this event. Here, he is seen to have COVID19, with PNA on CXR. O2 sat in ER was 89% and he is now on O2 by IA. We are consulted for
abnormal troponin, which is up to 1.6. He looks well and denies any CP and EKG is stable. He is in no distress at the time of my assessment.
Past Medical History
Past Medical History: Arrhythmias, HTN and Valvular Disease
Social History
Tobacco: Non-Smoker
Personal:
Family History
Family History: Reviewed & Not Pertinent
Allergies / Home Medications
Allergy/AdvReac Type Severity Reaction Status Date / Time
Sulfa (Sulfonamide Allergy Rash Verified 08/10/24 17:12
Antibiotics)
�Medication �Instructions �Recorded �Confirmed �Type
amlodipine 10 mg tablet 10 mg PO DAILY Blood Pressure 02/13/22 08/10/24 History
apixaban 5 mg tablet (Eliquis) 5 mg PO BID Blood Clot 02/13/22 08/10/24 History
Prevention/Tx
magnesium oxide 400 mg PO DAILY Supplement 02/13/22 08/10/24 History
sotalol 80 mg tablet 80 mg PO BID Arrhythmia 02/13/22 08/10/24 History
ascorbic acid (vitamin C) 500 mg 500 mg PO DAILY Supplement 08/10/24 08/10/24 History
tablet (Vitamin C)
betamethasone dipropionate 0.05 % 1 applic topical DAILYPRN PRN 08/10/24 08/10/24 History
topical cream eczema
cholecalciferol (vitamin D3) 25 25 mcg PO DAILY Supplement 08/10/24 08/10/24 History
mcg (1,000 unit) tablet (Vitamin
D3)
glucosamine sulfate 500 mg tablet 500 mg PO DAILY Supplement 08/10/24 08/10/24 History
(Glucosamine)
Review of Systems
-
History Source: Patient and Other (and chart)
Respiratory: Cough
Cardiac: Syncope
Physical Exam
Vital Signs
Temp Pulse Resp BP Pulse Ox
97.6 F 66 18 143/75 98
08/11/24 03:42 08/11/24 03:42 08/11/24 03:42 08/11/24 03:42 08/11/24 03:42
Lab Results
08/11/24 05:32
08/11/24 05:32
Troponin I 1.600 ng/ml H* 08/11/24 05:32
Bhk-F-Enxqieobbcy Pept 4080 pg/ml 08/10/24 17:19
Physical Exam
General: Well Developed, Well Nourished and No Apparent Distress
HEENT: Normocephalic and Anicteric
Respiratory: Rhonchi (L base) and Other (on O2 by NC)
Cardiac: Regular Rhythm and Murmur (II/ systolic)
Musculoskeletal: No Edema
Skin: Warm and Dry
Neuro: AO x 3
Psych: Calm
Impression / Plan
-
COVID-19, PNA:
-severe in that he is requiring inpatient management with IV medicines and O2 by NC
-management per primary team (received steroids, antiviral, abx)
-on O2 by NC
Syncope:
-sounds vagal in setting of coughing fit (secondary to above)
Abnormal troponin: 1.6
-suspect acute non-ischemic myocardial injury in setting of hypoxemia, COVID-19, PNA
-denies any CP, EKG is normal- will repeat today
-echo ordered for today
-trend to peak
Aflutter (type unknown):
-stable in SR with hx ablation
-continue sotalol and Eliquis
HFpEF:
-chronic
-does not appear volume overloaded to assessment
HTN:
-continue meds and monitoring
Hyponatremia:
-management per primary team
Data Reviewed
-
EKG: Tracing Personally Visualized and interpreted (NSR)
Radiology: Report Reviewed by me (CXR: Left lower lobe infiltrate consistent with pneumonia. There is a trace left parapneumonic effusion.)
Medical Tests (Nuc Med, Echo etc): Report Reviewed by me (Echo 01/19/24: Normal biventricular size and systolic function without regional wall motion abnormality. Stage III diastolic dysfunction suggestive of restrictive filling pattern and
increased filling pressures. Moderate mitral regurgitation. Moderate pulmonary hypertension. )
Labs: Labs Reviewed by me
[2024-08-11] MEDS: BETAPACE 80 MG PO ×2 (08:54→20:25)
[2024-08-11] MEDS: NORVASC 10 MG PO (08:54)
[2024-08-11] MEDS: VITAMIN D3 (cholecalciferol) 25 MCG PO (08:54)
[2024-08-11] MEDS: MAG-TAB SR 84 MG PO (08:54)
[2024-08-11] MEDS: VIBRAMYCIN 260 MG IV ×2 (08:55→20:26)
[2024-08-11] MEDS: VITAMIN C 500 MG PO (08:55)
[2024-08-11] MEDS: ELIQUIS 5 MG PO ×2 (08:55→20:25)
--- NOTE | 2024-08-11 10:35 | W.PN.HOSP.TC ---
Today's Communication/Plan
-
Continue antibiotics
Check urinary antigens
Urine studies for hyponatremia
TSH
Echo
Wean oxygen as able
Assessment / Plan
Assessment / Plan
Gen-AAOx3, NAD
HEENT-NC, AT, anicteric, clear oral mm
Neck-supple
CV-reg, no M, +S1/S2
Lungs-clear B/L
Abd-soft, NT, ND
Ext-no edema
Musculoskeletal-no cyanosis, clubbing
Skin-warm and dry
Neuro-grossly non-focal
Psych-calm, cooperative
Acute hypoxic respiratory insufficiency -due to pneumonia. Currently on 2 L nasal cannula oxygen, wean down as able.
Vasovagal syncope -suspect posttussive syncope. Echocardiogram ordered. Cardiology consulted. Not orthostatic.
COVID-19 infection -presentation with hypoxia, cough. Currently on remdesivir and dexamethasone.
Sepsis due to community-acquired pneumonia -suspect bacterial pneumonia. Left lower lobe infiltrate noted on chest x-ray. Presentation with tachycardia, leukocytosis, coughing, hypoxia. Afebrile. Continue ceftriaxone, doxycycline. Check urinary
antigens. Blood culture sent.
Hyponatremia -128 this morning. Suspect SIADH related to pneumonia. Check urine, TSH. Fluid restriction.
Troponin elevation -likely acute nonischemic myocardial injury due to pneumonia. No concerning EKG changes.
Hyperglycemia -rule out diabetes. Check hemoglobin A1c.
Hx Atrial flutter, unknown type -status post ablation. Continue Eliquis, sotalol.
Essential hypertension -stable.
Full code
Anticipated Discharge: Within 24 hours
Subjective/Interval History
-
Date of Service: August 11, 2024
Patient seen and examined. No complaints.
Objective Data
-
Labs:
Laboratory Results
08/11/24
05:32
WBC 7.7
Hgb 11.1 L
Hct 31.7 L
Plt Count 271
Sodium 128 L
Potassium 4.8
Chloride 95 L
Carbon Dioxide 24
BUN 19
Creatinine 0.7
Glucose 156 H
Calcium 9.0
Vital Signs:
Vital Signs
Temp Pulse Resp BP Pulse Ox
98.9 F 78 16 153/73 97
08/11/24 07:11 08/11/24 07:11 08/11/24 07:11 08/11/24 07:11 08/11/24 07:11
I&O
08/10/24 08/11/24 08/12/24
06:59 06:59 06:59
Intake Total 420 / 420
Balance 420 / 420
Review of Systems
-
History Source: Patient
All other systems: Reviewed and negative
[2024-08-11 11:44] LABS: Osmolality Urine 485 mOsm/kg (300-900)
[2024-08-11 12:02] LABS: Urine Sodium 41 mmol/L (30-90)
[2024-08-11 12:13] LABS: Glycohemoglobin (HgbA1c) 6.2 % (4.0-5.6)
[2024-08-11 12:14] LABS: Glucose - Point of Care 187 mg/dl (70-99)
[2024-08-11] MEDS: VEKLURY 250 MG IV (12:22)
[2024-08-11 13:21] LABS: Osmolality Serum 266 mOsm/kg (275-300)
[2024-08-11 13:46] LABS: TSH 0.49 uIU/ml (0.47-4.68)
--- NOTE | 2024-08-11 14:39 | CM ---
Patient seen bedside.
Covid +
IA completed..
Patient lives with spouse in a 1 story home with 2 steps to enter..
patient drives and works.
Patient independent prior to admission without assistive devices.
Patient denies home care needs.
PCP: Dr Virgen
Pharmacy: [facility] in [place]
Plan: home no needs anticipated.
[2024-08-11] MEDS: STERILE WATER FOR INJECTION 10 ML IV (17:14)
[2024-08-11] MEDS: ROCEPHIN 1000 MG IV (17:14)
[2024-08-12 03:25] VITALS: BP 139/72
[2024-08-12 07:20] VITALS: BP 148/78
[2024-08-12 07:42] LABS: Blood Urea Nitrogen 19 mg/dl (9-20); Calcium 9.2 mg/dl (8.4-10.2); Carbon Dioxide 25 mmol/L (22-30); Chloride 98 mmol/L (98-107); Estimated Creatinine Clearance 87 ml/min; Glucose 121 mg/dl (70-99); Potassium 4.7 mmol/L (3.5-5.1); Sodium 133 mmol/L (135-145); eGFR > 60.00
[2024-08-12] MEDS: VIBRAMYCIN 260 MG IV (08:48)
[2024-08-12] MEDS: VITAMIN C 500 MG PO (08:49)
[2024-08-12] MEDS: VITAMIN D3 (cholecalciferol) 25 MCG PO (08:49)
[2024-08-12] MEDS: DECADRON 6 MG PO (08:49)
[2024-08-12] MEDS: NORVASC 10 MG PO (08:49)
[2024-08-12] MEDS: MAG-TAB SR 84 MG PO (08:49)
[2024-08-12] MEDS: BETAPACE 80 MG PO (08:49)
[2024-08-12] MEDS: ELIQUIS 5 MG PO (08:49)
--- NOTE | 2024-08-12 10:05 | W.PN.HOSP.TC ---
Today's Communication/Plan
-
Discharge
Assessment / Plan
Assessment / Plan
Gen-AAOx3, NAD
HEENT-NC, AT, anicteric, clear oral mm
Neck-supple
CV-reg, no M, +S1/S2
Lungs-clear B/L
Abd-soft, NT, ND
Ext-no edema
Musculoskeletal-no cyanosis, clubbing
Skin-warm and dry
Neuro-grossly non-focal
Psych-calm, cooperative
Acute hypoxic respiratory insufficiency -due to pneumonia. Oxygenation improved, now on room air. Denies shortness of breath or dyspnea on exertion.
Vasovagal syncope -suspect posttussive syncope. Not orthostatic. Echocardiogram shows LVEF 60 to 65%, normal RV size and function, moderate to severe MR, pulmonary hypertension with PASP 56 mmHg. MR now worsened compared to previous echo in
January. Follow-up with cardiology after discharge.
COVID-19 infection -presentation with hypoxia, cough. Currently on remdesivir and dexamethasone, day 3. No need for antivirals on discharge given rapid improvement and clinical stability.
Sepsis due to community-acquired pneumonia -suspect bacterial pneumonia. Left lower lobe infiltrate noted on chest x-ray. Sepsis resolved. Blood cultures negative. Urinary antigens negative. Can discharge on oral antibiotics.
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 Sodium improving on fluid restriction. TSH normal, urine studies noted. Continue fluid restriction on discharge. Discussed with patient. Patient states that he has had
chronic hyponatremia although his sodium level was noted to be 136 in February of last year.
Troponin elevation -likely acute nonischemic myocardial injury due to pneumonia. No concerning EKG changes.
Impaired fasting glucose -hemoglobin A1c 6.2%. Discussed with patient. Weight loss would help.
Hx Atrial flutter, unknown type -status post ablation. Continue Eliquis, sotalol.
Essential hypertension -stable.
Full code
Dispo -medically stable for discharge home today. Await cardiology input. Follow-up next week with PCP, cardiology.
Discussed with nursing.
32-minute spent in discharge process.
Anticipated Discharge: Today
Subjective/Interval History
-
Date of Service: August 12, 2024
Patient seen and examined. No complaints.
Objective Data
-
Labs:
Laboratory Results
08/12/24
06:31
Sodium 133 L
Potassium 4.7
Chloride 98
Carbon Dioxide 25
BUN 19
Creatinine 0.7
Glucose 121 H
Calcium 9.2
Vital Signs:
Vital Signs
Temp Pulse Resp BP Pulse Ox
98.2 F 73 16 148/78 97
08/12/24 07:20 08/12/24 08:49 08/12/24 07:20 08/12/24 08:49 08/12/24 07:20
I&O
08/11/24 08/12/24 08/13/24
06:59 06:59 06:59
Intake Total 420 / 420 1849
Balance 420 / 420 1849
Review of Systems
-
History Source: Patient
All other systems: Reviewed and negative
--- NOTE | 2024-08-12 10:56 | W.DS.TRANS ---
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
-
Discharge Instructions:
Sleep Apnea Risk Intermediate
Discharge Diagnosis/Procedures COVID infection, sepsis, pneumonia, hyponatremia
Diet Restrict fluids to 48 oz,Low Cholesterol,Low Fat
Activity As tolerated
Driving Restrictions As prior to admission
Bathing Restrictions None
Blood Work BMP in 1 week with your primary care doctor
Instructions:
Stand-Alone Forms:
Changes to Home Medications: No
Discharge Medications:
DC Medications w/original date entered in [facility]
amlodipine 10 mg tablet 10 mg PO DAILY Blood Pressure 02/13/22
apixaban 5 mg tablet (Eliquis) 5 mg PO BID Blood Clot Prevention/Tx 02/13/22
magnesium oxide 400 mg PO DAILY Supplement 02/13/22
sotalol 80 mg tablet 80 mg PO BID Arrhythmia 02/13/22
ascorbic acid (vitamin C) 500 mg tablet (Vitamin C) 500 mg PO DAILY Supplement 08/10/24
betamethasone dipropionate 0.05 % topical cream 1 applic topical DAILYPRN PRN eczema 08/10/24
cholecalciferol (vitamin D3) 25 mcg (1,000 unit) tablet (Vitamin D3) 25 mcg PO DAILY Supplement 08/10/24
glucosamine sulfate 500 mg tablet (Glucosamine) 500 mg PO DAILY Supplement 08/10/24
cefuroxime axetil 500 mg tablet 500 mg PO BID #10 tabs 08/12/24
doxycycline hyclate 100 mg tablet 100 mg PO BID #10 tabs 08/12/24
Home Medication Changes
Pending Results: No
--- NOTE | 2024-08-12 10:57 | CM ---
Addendum entered by Mary Josue 08/12/24 12:25:
Patient declined VN needs.
IMM completed.
Spouse will transport.
Plan: home no needs.
Original Note:
Plan: home with no needs.
--- NOTE | 2024-08-12 11:01 | W.PN.CD ---
Today's Communication / Plan
-
Nothing on telemetry or echo concerning for cardiac syncope
OK for discharge
Outpatient follow-up as planned
Impression / Plan
-
COVID-19, PNA:
-severe in that he is requiring inpatient management with IV medicines and O2 by NC
-management per primary team (received steroids, antiviral, abx)
-on O2 by NC
Syncope:
-sounds vagal in setting of coughing fit (secondary to above)
-telemetry and echo not concerning for cardiac etiology
Abnormal troponin: peak 1.6
-suspect acute non-ischemic myocardial injury in setting of hypoxemia, COVID-19, PNA
-denies any CP, EKG is normal
-TTE 08/11/24: LVEF 60-65%, mod-severe MR, PASP 56 mmHg
-outpatient stress if he has exertional symptoms
Aflutter (type unknown):
-stable in SR with hx ablation
-continue sotalol and Eliquis
HFpEF:
-chronic
-does not appear volume overloaded to assessment
HTN:
-continue meds and monitoring
Hyponatremia:
-management per primary team
Subjective: Feels well. No complaints.
Physical Exam
Vital Signs/Labs
Vital Signs
Temp Pulse Resp BP Pulse Ox
98.2 F 73 16 148/78 97
08/12/24 07:20 08/12/24 08:49 08/12/24 07:20 08/12/24 08:49 08/12/24 07:20
08/11/24 08/12/24 08/13/24
06:59 06:59 06:59
Actual Weight 88.995 kg
08/11/24 05:32
08/12/24 06:31
TSH 0.49 uIU/ml (0.47-4.68) 04/03/25 05:32
08/10/24
17:19
Cnd-Z-Wlicedpluzs Pept 4080
LAB Results
08/10/24 08/11/24 08/11/24
17:19 00:25 05:32
Troponin I 0.035 H* 1.340 H* D 1.600 H*
08/11/24
11:44
Troponin I 1.160 H* D
Physical Exam
Constitutional: No acute distress
Cardiovascular: Rhythm & rate is regular, Pedal edema is absent and Murmur/rub/gallop absent
Respiratory: Respiratory effort normal and Lungs clear to auscul.
Neuro/Psych: AO x 3
Data Reviewed
-
Date of Service: August 12, 2024
Medical Decision Making: Reviewed Test Results, Independent Historian Assessment, Test Interpretation and Review of Case with other Provider
EKG: Tracing Personally Visualized and interpreted
Echo: Report Reviewed by me
X-Ray/CT/US/MRI/NUC/PET: Report Reviewed by me
Labs: Labs Reviewed by me
[2024-08-12] MEDS: VEKLURY 250 MG IV (11:13)
[2024-08-12 11:55] VITALS: BP 135/57
== END 2024-08-12 14:45 | disposition home or self-care (01) | DRG 871 ==
LOC: 2 NORTH 19:52
PROVIDERS: Nurse Practitioner; Nurse Practitioner Family; ADMITTING PHYSICIAN Internal Medicine; ATTENDING PHYSICIAN Hospitalist; EMERGENCY PHYSICIAN Emergency Medicine; FAMILY PHYSICIAN Family Medicine; OTHER PHYSICIAN Internal Medicine
PROC: XW033E5 Introduction of Remdesivir Anti-infective into Peripheral Vein, Percutaneous Approach, New Technology Group 5 (ICD-10-PCS; 2024-08-10)
DX: A41.89 Other specified sepsis (principal); J18.9 Pneumonia, unspecified organism; U07.1 COVID-19; I48.92 Unspecified atrial flutter; E22.2 Syndrome of inappropriate secretion of antidiuretic hormone; I5A Non-ischemic myocardial injury (non-traumatic); I50.32 Chronic diastolic (congestive) heart failure; J91.8 Pleural effusion in other conditions classified elsewhere; Z11.52 Encounter for screening for COVID-19; R09.02 Hypoxemia; R06.89 Other abnormalities of breathing; R55 Syncope and collapse; I11.0 Hypertensive heart disease with heart failure; Z79.01 Long term (current) use of anticoagulants; Z79.899 Other long term (current) drug therapy
CPT/HCPCS: 70450; 71046; 72125; 80048; 80053; 82962; 83036; 83605; 83880; 83930; 83935; 84300; 84443; 84484; 85025; 85027; 86803; 87040; 87449; 87502; 87811; 87899; 93005; 93306; 96365; 96375; 99285; J0248

== ENCOUNTER 2024-09-09 04:48 | Inpatient (IN) | payer MEDICARE, SELFPAY ==
[2024-09-09] VITALS (34 sets, daily range): BP systolic 90–152; BP diastolic 39–102; BMI 26.4; BMI 27.1
[2024-09-09] MEDS: DIPRIVAN 100 IV ×4 (00:50→19:51)
[2024-09-09 01:07] LABS: % Basophils 0.4 % (0-2); % Eosinophils 6.2 % (0-6); % Immature Granulocytes 0.7 % (0-0.5); % Lymphocytes 18.2 % (20.5-51.1); % Monocytes 8.1 % (1.7-9.3); % Neutrophils 66.4 % (42.2-75.2); Absolute Basophils 0.1 10^3/uL (0-0.2); Absolute Immature Granulocytes 0.1 10^3/uL (0-0.05); Absolute Lymphocytes 2.9 10^3/uL (1.2-3.4); Absolute Monocytes 1.3 10^3/uL (0.1-0.6); Absolute Neutrophils 10.6 10^3/uL (1.4-6.5); B.E. -7.7 mmol/L; HCO3 24.3 mmol/L (21-28); Hematocrit 41.1 % (39.0-52.0); Hemoglobin 13.5 g/dL (13.0-18.0); Mean Corp Hgb Conc. 32.8 g/dL (33.0-37.0); Mean Corpuscular Hgb 27.7 pg (27.0-31.0); Mean Corpuscular Volume 84.4 fL (80.0-94.0); Mean Platelet Volume 9.5 fL (7.4-10.4); Nucleated Red Blood Cells % 0 % (-); O2 Saturation % 97.9 % (94-98); PO2 117 mmHg (83-108); Platelet Count 449 10^3/uL (130-400); Red Blood Cell Count 4.87 10^6/uL (4.70-6.10); Red Cell Dist. Width 14.7 % (11.5-14.5)
[2024-09-09 01:10] LABS: O2 Therapy 94
[2024-09-09 01:11] LABS: PCO2 84 mmHg (35-48); pH 7.07 (7.35-7.45)
--- NOTE | 2024-09-09 01:14 | ED.GENMED ---
History of Present Illness
General
Chief Complaint: Abnormal Lab Value
Source: ambulance crew
Time Seen by Provider: 09/09/24 00:55
Nursing documentation reviewed up to this point in time: agreed with
History of Present Illness
History of Present Illness:
This is an intubated 79-year-old male brought in by multiple EMS crews after patient suffered respiratory arrest in the field. According to medics, patient awakened at 10:30 PM struggling to breathe. called 911 and upon arrival they found
that he was saturating 66% on room air. Patient was put on a nonrebreather and it did not improve his oxygen saturation significantly. He became unresponsive and patient was intubated en route. They did provide ketamine and fentanyl as well as
Versed for sedation as patient was fighting the tube. Patient recently had COVID and COVID-pneumonia.
Vital signs are stable. Patient not hypoxic while intubated but hypoxic on room air
Nursing note reviewed. I agree with nursing documentation up to this point in time.
Home Meds and allergies reviewed.
NUMBER AND COMPLEXITY OF PROBLEMS ADDRESSED AT THE ENCOUNTER
� Chronic conditions affecting care: Atrial flutter, hypertension, on Eliquis
� Acute Exacerbation and/or Progression of Chronic Illness: Acute problem
� Differential Diagnosis includes: Pneumonia, pulmonary embolus, ACS
AMOUNT AND/OR COMPLEXITY OF DATA TO BE REVIEWED AND ANALYZED
I performed an independent evaluation of the following and my interpretation is:
EKG:
Pulse Ox: Not Hypoxic while intubated but was hypoxic on room air
Receptionist Doctor'S Office: Sinus Rhythm
CT:
X-rays: Right lower lobe infiltrate
Ultrasound:
Laboratory Studies: Trop 0.138, BNP 2540
Other:
Review of other/old records:
Clinical information was obtained by an independent historian: Paramedics, who is present at the bedside
Prescriptions/Medications Considered but not given:
Further testing considered but not performed:
RISK OF COMPLICATIONS AND/OR MORBIDITY OR MORTALITY OF PATIENT MANAGEMENT
Social determinants of health affecting care: Good Social Support
Discussion with other providers: Hospitalist for ICU admission
Escalation of care including admission/observation vs risk of discharge considered: After being observed in the emergency department, patient is unstable for discharge. Patient to be admitted to the hospitalist service.
CRITICAL CARE NOTE:
Critical care statement: A total of 45 minutes of critical care time was provided for this patient. This time is separate from time utilized to perform the aforementioned documented procedures. Aggregate critical care time includes only time
during which I was engaged in work directly related to the patient's care, as described above, whether at the bedside or elsewhere in the Emergency Department.
Total Time (exclusive of procedures):
Update:
Past History
Past History
ED Past Medical History: Arrthythmia (Atrial flutter), HTN and Valvular disease
ED Past Surgical History: Appendectomy
Patient has exhibited threatening behavior?: No
Social History
Tobacco: Non-smoker
Review of Systems
Review of Systems
Allergies reviewed?: Yes
All Other Systems: ROS reviewed and negative except as documented in HPI and ROS
Constitutional: Reports sleep disturbance
EENT: Reports no symptoms
Respiratory: Reports trouble breathing
Cardiac: Denies chest pain
ABD/GI: Reports no symptoms
: Reports no symptoms
Musculoskeletal: Reports no symptoms
Skin: Reports no symptoms
Neurological: Reports no symptoms
Endocrine: Reports no symptoms
Hematologic/Lymphatic: Reports no symptoms
Psychiatric: Reports no symptoms
Phy Exam
General Physical Exam
General Presentation: severe distress
General age: appears stated age
General Skin: warm and dry
General Habitus: elderly and frail
Cardiovascular Exam
Cardiovascular Exam: regular rate/rhythm
Pulmonary Exam
Pulmonary Exam: decreased breath sounds, generalized wheezing and respiratory distress
Respiratory Effort: poor respiratory effort
Oxygen Status: ventilator
Respirations: accessory muscle use, labored, moderate effort and retractions
Breath Sounds: Wheeze: generalized
Gastrointestinal Exam
Gastrointestinal Exam: normal bowel sounds and non distended
Musculoskeletal Exam
Musculoskeletal Exam: no edema and neuro vasc intact
Skin Exam
Skin Exam: no rash and pallor
Course
Orders/Labs/Results
Orders:
Orders
09/09/24 00:43
Electrocardiogram (*1) Urgent
Reason for Study: Shortness of Breath
09/09/24 00:44
Electrocardiogram (*1) Urgent
Reason for Study: Other
Other Reason for Exam: Respiratory Distress
Cardiac Monitoring- Treatment ONCE
EKG- Treatment ONCE
EKG- Treatment ONCE
IV Insert/Care/Rem.- Treatment PRN
CR Chest Portable - 1 View Urgent
Comment:
Reason For Exam: respiratory distress
Reason Study Needs to be Portable: Patient Unstable
O2 Therapy [RESP] Urgent
Titrate/Wean O2 to maintain O2 sat greater than (%): 93
Special Instructions: TO MAINTAIN CONTINUOUS O2 SATS >/= 93%
Pulse Ox/cont/shift [RESP] Urgent
Quantity: 1
Special Instructions: continuous pulse ox
09/09/24 00:53
Arterial Blood Gas Stat
%Oxygen/Room Air: 94
COVID-19 Antigen Urgent
Source: Nasal Swab
Complete Blood Count/With Diff Urgent
Comprehensive Metabolic Panel Urgent
Lactic Acid Stat
NT-proBNP Urgent
Troponin I Urgent
Influenza A+B Rapid Molecular Urgent
PERI Source: Nasal Swab
Specimen Description:
09/09/24 00:55
Blood Culture Q30M
PERI Source: Blood/Venous
Specimen Description:
Blood Culture Q30M
PERI Source: Blood/Venous
Specimen Description:
09/09/24 01:18
Urinalysis Reflex To Culture Urgent
Date Specimen was Collected: 09/09/24
Time Specimen was Collected: 01:13
Urine Microscopic Reflex Cult Urgent
09/09/24 01:33
Propofol 1,000,000 Mcg/100 ml [Diprivan] 1,000,000 mcg in 100 ml IV NOW
Indication:: Light Sedation
Begin Infusion:: Now
Goal:: RASS 0 to -2
Maximum dose in mcg/kg/min:: 50
Initial dose based on RASS:: Yes
If RASS is:: +1 or pt hemodynamically unstable (SBP < 90mmHg), initiate at 10 mcg/kg/min
If RASS is:: +2, initiate at 20 mcg/kg/min
If RASS is:: greater than or equal to +3, initiate at 30 mcg/kg/min
Titration Instructions:: Titrate by 5-10 mcg/kg/min every 5 minutes until RASS 0 to -2 achieved.
Taper Instructions:: If RASS is at or below goal for 4 consecutive hours decrease infusion by
Taper Instructions:: 5-10 mcg/kg/min every 2 hours to off.
Over-sedation Instructions:: If CPOT 0-2 (at goal) AND RASS -3 to -5 (below goal) decrease sedative by
Over-sedation Instructions:: 50% first. If pain score remains at goal and RASS remains below goal in
Over-sedation Instructions:: 1 hour, decrease opioid infusion by 50%.
Notify provider:: immediately if patient exhibits signs/symptoms of propofol-related
Notify provider:: infusion syndrome.
Additional Instructions:: Patient MUST be mechanically ventilated and MUST receive analgesia.
09/09/24 01:45
Triglycerides Routine
Comment: baseline levels with propofol infusion
09/09/24 01:47
Piperacillin/Tazo 4.5 Gram [Zosyn] 4.5 gram in 100 ml IV NOW
09/09/24 01:49
CT Chest PE Study Urgent
Comment:
Reason For Exam: sudden resp arrest
09/09/24 02:03
HydrALAZINE [Apresoline] 10 mg IV Q6HPRN PRN
09/09/24 02:18
ABG [Arterial Blood Gas] Urgent
%Oxygen/Room Air: vent
09/09/24 02:56
CT Head W/o Iv Contrast Urgent
Comment:
Reason For Exam: ams
09/09/24 03:00
Flush (0.9% Sodium Chloride) [Flush (Nss)] See Dose Instructions IV PER PROTOCOL
Abnormal Lab Results
09/09/24 09/09/24 09/09/24
00:53 01:18 02:18
WBC 16.0 H 10^3/uL
(4.8-10.8)
MCHC 32.8 L g/dL
(33.0-37.0)
RDW 14.7 H %
(11.5-14.5)
Plt Count 449 H 10^3/uL
(130-400)
Abs Immat Gran (auto) 0.1 H 10^3/uL
(0-0.05)
Absolute Neuts (auto) 10.6 H 10^3/uL
(1.4-6.5)
Absolute Monos (auto) 1.3 H 10^3/uL
(0.1-0.6)
Absolute Eos (auto) 1.0 H 10^3/uL
(0-0.7)
Immature Gran % 0.7 H %
(0-0.5)
Lymphocytes % 18.2 L %
(20.5-51.1)
Eosinophils % 6.2 H %
(0-6)
pH 7.07 L* 7.22 L
(7.35-7.45) (7.35-7.45)
pCO2 84 H* mmHg 59 H mmHg
(35-48) (35-48)
pO2 117 H mmHg 190 H mmHg
(83-108) (83-108)
ABG O2 Sat (Measured) 99.5 H %
(94-98)
BUN 22 H mg/dl
(9-20)
Glucose 282 H mg/dl
(70-99)
Troponin I 0.138 H* ng/ml
Ur Occult Blood Reflex 1+ A
(Negative)
Urine RBC 11-15 A /HPF
(0-2)
Urine Bacteria (Reflex) Few A
(Negative)
Urine Albumin (Reflex) 3+ A
(Neg - Trace)
09/09/24 00:53
09/09/24 00:53
Vital Signs
Initial and Last Documented VS:
Initial Vital Signs
BP
123/65
09/09/24 00:43
Last Documented Vital Signs
Temp Pulse Resp BP Pulse Ox
95 F L 64 15 119/62 100
09/09/24 01:09 09/09/24 03:04 09/09/24 03:04 09/09/24 03:15 09/09/24 03:15
*EKG
Interpreted by ED Provider?: Yes
Interpretation: normal
Comparison EKG: changes noted
Heart Rate: 74
Rate: normal
Rhythm: sinus and sinus arrhythmia
[place]: normal axis
Interval: first degree heart block
QRS Pattern: normal QRS
Ischemia: non-specific ST changes
*Receptionist Doctor'S Office Interpretation
Rate: normal
Interpretation: normal
Heart Rate: 68
Rhythm: sinus
*Critical Care Note
Total Time (30-74mins, 75-104mins- exclusive of procedures): 45 (Critical care statement: A total of 45 minutes of critical care time was provided for this patient. This time is separate from time utilized to perform the aforementioned documented
procedures. Aggregate critical care time includes only time during which I was engaged in work directl)
Update Note
Update Note:
NAME: DAVID HUBBARD
DATE OF EXAM: 09/09/2024
Patient No: [id number]
Physician: KERRIE^DENISE^Ana
Date of : 1945
Past Medical History (entered by Technologist):
Reason For Exam (entered by Technologist): resp arrest
Other Notes (entered by Technologist):
Additional Information (per [facility] Radiologist): Respiratory arrest
CT head
CTA chest PE
IMPRESSION:
CT head:
No acute intracranial findings
Global cerebral volume loss and mild chronic microvascular changes in white matter
CTA chest:
Adequate contrast opacification of the pulmonary arteries
Assessment of lower lobe vessels limited due to respiratory motion
No appreciable pulmonary embolus to the segmental pulmonary arterial level
No appreciable acute thoracic aortic pathology on this non-ECG gated exam
Coronary and systemic atherosclerotic calcifications
Normal size heart
Reflux of IV contrast into a large IVC and patent veins, indicating elevated right heart pressure/right heart dysfunction
Mild pulmonary edema
Small bilateral pleural effusions
Dependent consolidations bilateral lungs. Few air bronchograms in the lower lobes
While this could signify atelectasis , would be difficult to exclude aspiration
Endotracheal tube in place with tip 3.6 cm above maxwell
Enteral tube in the proximal stomach
Findings discussed with Dr. Brunner at 3:45 AM ET
ED Attending Note
-
Portions of this chart may have been created with voice recognition software.� Occasional wrong word or��sound alike� substitutions may have occurred due to the inherent limitations of voice recognition software.
Discharge Plan
Departure
Patient Disposition: Admit
Date of Disposition: 09/09/24
Time of Disposition: 03:45
Admit to: ICU
Presentation/result/management discussed w/ accepting MD/DO: Hospitalist
Discharge Problem:
Bacterial pneumonia, Chronic diastolic (congestive) heart failure, Acute non-ST elevation myocardial infarction (NSTEMI)
Prescriptions:
No Action
sotalol 80 mg Tablet
80 mg PO BID
amlodipine 10 mg Tablet
10 mg PO DAILY
Eliquis 5 mg Tablet
5 mg PO BID
magnesium oxide 400 mg magnesium Tablet
400 mg PO DAILY
glucosamine sulfate [Glucosamine] 500 mg Tablet
500 mg PO DAILY
ascorbic acid (vitamin C) [Vitamin C] 500 mg Tablet
500 mg PO DAILY
betamethasone dipropionate 0.05 % Cream
1 applic TOPICAL DAILYPRN PRN (Reason: eczema)
cholecalciferol (vitamin D3) [Vitamin D3] 25 mcg (1,000 unit) Tablet
25 mcg PO DAILY
Referrals:
Raiza Virgen MD [Family Provider] -
Interventions
Interventions:
*Risk Screen - Suicide Last Done: 09/09/24 00:48
*General Assessment Last Done: 09/09/24 00:48
*Neglect/Abuse Screening Last Done: 09/09/24 00:48
*ED- Fall Risk Assessment Last Done: 09/09/24 00:48
Discharge Date and Time
Print Language: CROATIAN
[2024-09-09 01:20] LABS: ALT (SGPT) 16 U/L (0-50); AST (SGOT) 19 U/L (17-59); Alkaline Phosphatase 61 U/L (38-126); Blood Urea Nitrogen 22 mg/dl (9-20); Calcium 9.1 mg/dl (8.4-10.2); Carbon Dioxide 24 mmol/L (22-30); Chloride 101 mmol/L (98-107); Estimated Creatinine Clearance 65 ml/min; Glucose 282 mg/dl (70-99); Potassium 4.7 mmol/L (3.5-5.1); Sodium 136 mmol/L (135-145); Total Bilirubin 0.4 mg/dl (0.2-1.3); Total Protein 6.6 g/dl (6.3-8.2); eGFR > 60.00
[2024-09-09 01:34] LABS: COVID-19 Antigen Negative (Negative)
[2024-09-09 01:36] LABS: NT-proBNP 2540 pg/ml; Troponin I 0.138 ng/ml
[2024-09-09 01:40] LABS: Urine Albumin 3+ (Neg - Trace); Urine Bilirubin Negative (Negative); Urine Character Clear (Clear); Urine Color Yellow; Urine Glucose Negative (Negative); Urine Ketone Negative (Negative); Urine Leukocyte Negative (Negative); Urine Nitrite Negative (Negative); Urine Occult Blood 1+ (Negative); Urine Urobilinogen Negative (Neg - 1+)
[2024-09-09] MEDS: ZOSYN 100 IV ×4 (01:54→20:07)
[2024-09-09 01:58] LABS: Lactic Acid 1.3 mmol/L (0.7-2.0)
[2024-09-09 02:03] LABS: Urine Amorphous Seen
[2024-09-09 02:05] LABS: Urine Bacteria Few (Negative)
[2024-09-09 02:19] LABS: Triglycerides 66 mg/dl (10-149)
[2024-09-09 02:42] LABS: B.E. -4.3 mmol/L; HCO3 24.1 mmol/L (21-28); O2 Saturation % 99.5 % (94-98); PCO2 59 mmHg (35-48); PO2 190 mmHg (83-108); pH 7.22 (7.35-7.45)
--- NOTE | 2024-09-09 04:44 | HPS.HSE ---
Family Physician
-
Family Physician: Raiza Virgen MD
Chief Complaint
-
Respiratory Distress
History of Present Illness
Patient is an 79y M with PMH significant for A-Fib / Flutter, hypertension and recent admission for COVID pneumonia who presents to ED via EMS for evaluation of SOB / respiratory distress. History obtained from family at the bedside. Patient
was hospitalized 08/10 - 08/13 secondary to COVID / pneumonia. He was treated with remdesivir and dexamethasone during the 3 days he was hospitalized. He received abx for CAP and was discharged on cefuroxime and doxycycline. Patient continued to
clinically improve. states that he began to experience increased SOB - especially in the evening / while lying flat.
Last PM he sat upright and turned on the air conditioner and was able to get to sleep. Today he had a normal day - including doing some yard work without significant difficulty.
This evening he again became SOB while lying in bed. This time his symptoms progressed and 911 was called. Patient was noted to be significantly hypoxemic / in distress and was intubated in the field.
In the ED, patient is sedated on the vent.
Family states that he has had no weight gain at home - weighs himself daily.
He had cough this evening productive of clear mucus. No medication changes since his last admission.
Medical History
Past Medical History
Past Medical History: Reports Other
Additional Past Medical History:
Paroxysmal Atrial Fibrillation / Flutter
Hypertension
Past Surgical History: Reports Other
Additional Past Surgical History:
cardiac ablation for a flutter 2018
appendicitis 1957
right hip replacement 01/05/23
Social History
Tobacco: Non-smoker
Alcohol: None
Drug: None
Personal:
Living: With Family
Employment: Employed
Family History
Family History: Not pertinent
Allergies / Home Medications
Allergies reflects when Allergies were last updated in [facility].
Home Medications with original date entered in [facility]
Allergy/Medication List:
Allergies
Allergy/AdvReac Type Severity Reaction Status Date / Time
Sulfa (Sulfonamide Allergy Rash Verified 09/09/24 01:25
Antibiotics)
Home Medications
amlodipine 10 mg tablet 10 mg PO DAILY Blood Pressure 02/13/22
apixaban 5 mg tablet (Eliquis) 5 mg PO BID Blood Clot Prevention/Tx 02/13/22
magnesium oxide 400 mg PO DAILY Supplement 02/13/22
sotalol 80 mg tablet 80 mg PO BID Arrhythmia 02/13/22
ascorbic acid (vitamin C) 500 mg tablet (Vitamin C) 500 mg PO DAILY Supplement 08/10/24
betamethasone dipropionate 0.05 % topical cream 1 applic topical DAILYPRN PRN eczema 08/10/24
cholecalciferol (vitamin D3) 25 mcg (1,000 unit) tablet (Vitamin D3) 25 mcg PO DAILY Supplement 08/10/24
glucosamine sulfate 500 mg tablet (Glucosamine) 500 mg PO DAILY Supplement 08/10/24
Review of Systems
-
History Source: Family
A 12 point ROS was completed and negative except as noted: Yes
Constitutional: Reports Fatigue; Denies Fever, Weight Gain, Weight Loss or Chills
EENT: Denies Sore Throat
Respiratory: Reports Cough and Trouble Breathing; Denies Hemoptysis
Cardiac: Denies Chest Pain, Diaphoresis, Palpitations or Syncope
Abdomen/GI: Denies Abdominal Pain, Nausea, Vomiting or Diarrhea
: Denies Dysuria, Frequency or Flank Pain
Musculoskeletal: Denies Joint Pain or Edema
Neurological: Denies Dizzy or Headache
Psych: Denies Depression or Anxiety
Physical Exam
Vital Signs
Vital Signs
Temp Pulse Resp BP Pulse Ox
95 F L 46 16 94/48 100
09/09/24 01:09 09/09/24 04:15 09/09/24 04:15 09/09/24 04:15 09/09/24 04:15
Physical Exam
General: Other (79y M sedated on vent.)
HEENT: Other (ETT / OGT in place.)
Respiratory: Other (Coarse breath sounds throughout. No wheezing.)
Cardiac: S1/S2 and Regular Rhythm; No Murmur
GI: Soft, Non Tender, Non Distended and Normal Bowel Sounds
Musculoskeletal: No Clubbing, No Cyanosis and No Edema
Neuro: Sedated
Laboratory Results
-
09/09/24 00:53
09/09/24 00:53
Laboratory Results
pH 7.22 (7.35-7.45) L 09/09/24 02:18
pCO2 59 mmHg (35-48) H 09/09/24 02:18
pO2 190 mmHg (83-108) H 09/09/24 02:18
HCO3 24.1 mmol/L (21-28) 09/09/24 02:18
Lactic Acid 1.3 mmol/L (0.7-2.0) 09/09/24 00:53
Total Bilirubin 0.4 mg/dl (0.2-1.3) 09/09/24 00:53
AST 19 U/L (17-59) 09/09/24 00:53
ALT 16 U/L (0-50) 09/09/24 00:53
Alkaline Phosphatase 61 U/L (38-126) 09/09/24 00:53
Troponin I 0.138 ng/ml H* 09/09/24 00:53
Impression/Plan
-
A/P: Patient is an 79y M with PMH significant for hypertension and A-Fib / Flutter who presented to ED via EMS after being intubated in the field for respiratory distress.
Acute Hypoxemic and Hypercapnic Respiratory Failure
- Admit to ICU for further evaluation and treatment.
- Intubated in the field due to hypoxemia and work of breathing / distress.
- ABG = 7.22 / 59 / 190.
- Adjust vent settings as needed. Repeat ABG in the AM.
- Pulm / CC eval for additional recommendations.
- Symptoms likely multifactorial with components of pneumonia / pulm edema (see below).
Bilateral Pneumonia
Sepsis secondary to the above
- CXR and CT with bibasilar infiltrates c/w pneumonia.
- Patient presents with hypothermia, leukocytosis and pneumonia on imaging studies.
- IV abx with broad spectrum abx given recent hospitalization / pneumonia.
- Lactate normal and with concerns for pulm edema will hold on aggressive IVFs.
- COVID / influenza negative today.
Pulm Edema
Bilateral Pleural Effusions
- ? component of CHF given description of orthopnea / nocturnal dyspnea, effusions, etc.
- Weight unchanged per family and no peripheral edema, etc.
- CT scan suggests RV overload dysfunction.
- Trial of low-dose IV Lasix and follow I/Os, daily weights, etc.
- Echo was done during recent visit and showed normal LVEF with moderate - severe MR and moderate - severe pulmonary hypertension.
Abnormal Troponin
- Troponin in the ED = 0.138 which is significant decreased from prior admission when troponin peaked at 1.6.
- Suspect non-ischemic myocardial injury.
- Continue to follow troponin to confirm downward trend.
Paroxysmal Atrial Fibrillation / Flutter
- Stable. Continue Eliquis for stroke risk reduction.
- Continue sotalol.
DVT Prophylaxis: On Eliquis
Code Status: Full
[2024-09-09 05:22] LABS: Glucose - Point of Care 148 mg/dl (70-99)
[2024-09-09 05:46] LABS: Hematocrit 36.5 % (39.0-52.0); Hemoglobin 12.3 g/dL (13.0-18.0); Mean Corp Hgb Conc. 33.7 g/dL (33.0-37.0); Mean Corpuscular Hgb 27.7 pg (27.0-31.0); Mean Corpuscular Volume 82.2 fL (80.0-94.0); Mean Platelet Volume 9.2 fL (7.4-10.4); Platelet Count 356 10^3/uL (130-400); Red Blood Cell Count 4.44 10^6/uL (4.70-6.10); Red Cell Dist. Width 14.6 % (11.5-14.5)
[2024-09-09] MEDS: SUBLIMAZE 100 IV (05:50)
[2024-09-09] MEDS: VANCOCIN 540 MG IV (05:58)
[2024-09-09 06:01] LABS: ALT (SGPT) 16 U/L (0-50); AST (SGOT) 37 U/L (17-59); Albumin 3.4 g/dl (3.5-5.0); Alkaline Phosphatase 46 U/L (38-126); Blood Urea Nitrogen 23 mg/dl (9-20); Calcium 9.2 mg/dl (8.4-10.2); Carbon Dioxide 23 mmol/L (22-30); Chloride 103 mmol/L (98-107); Direct Bilirubin 0.2 mg/dl (0.0-0.4); Estimated Creatinine Clearance 72 ml/min; Glucose 161 mg/dl (70-99); Sodium 136 mmol/L (135-145); Total Bilirubin 0.5 mg/dl (0.2-1.3); Total Protein 5.9 g/dl (6.3-8.2); Triglycerides 54 mg/dl (10-149); eGFR > 60.00
--- NOTE | 2024-09-09 06:04 | W.PN.UPDATE ---
Update Note
Progress Note Update
Procedure Note: Arterial Line�
� Right Wrist Arrow 20 (07/12)�
Diagnosis:��acute Respiratory failure
IV Line Comments: Uneventful Procedure�
[employer]'s test completed pre-procedure: Yes�
A-Line Comments: Sterile technique as per standard protocol, Ultrasound guided insertion�
Functioning A-line in situ: Yes�
A-line Insertion Start Time:��0535
A-line in at:��0555
--- NOTE | 2024-09-09 06:45 | PTCARENOTE ---
Received pt from ER,intubated and maintained on Propofol for sedation.Physical assessment preformed,core temp within 1/2 hour,up to 97.1 no bear hugger needed at this time,SB case monitor,Bebe initiated to right wrist by DEANNA. VS
stable.Ventilatory mechanics maintained O2 sat 100%. Pt tolerated transfer well.
[2024-09-09 07:12] LABS: B.E. -1.4 mmol/L; HCO3 22.7 mmol/L (21-28); O2 Saturation % 99.6 % (94-98); PCO2 35 mmHg (35-48); PO2 183 mmHg (83-108); pH 7.42 (7.35-7.45)
--- NOTE | 2024-09-09 07:32 | CON.INTV ---
Documented by User: Merle Tellez DO, Resident 09/09/24 11:50
Consultation
Consultation Request
Date/Time Consultation Requested: 09/09/2024
Date/Time Consultation Performed: 09/09/2024
Medical History
-
Chief Complaint: NSTEMI
History of Present Illness:
79yo M [facility] aflutter on eliquis, HTN, recent admission for COVID pneumonia (08/10-08/13) brought to [facility] ED after suffering respiratory arrest. Pt awakened at ~22:30 struggling to breathe. On EMS arrival, pt saturated 66% on room air. He became
unresponsive and was intubated en route. + paroxysmal nocturnal dyspnea, +orthopnea, -weight change, +productive cough of clear mucus, -med changes since last hospitalization. A-line inserted overnight.
Past Medical History
Past Medical History: Arrhythmias, HTN and Valvular Disease
Past Surgical History: Appendectomy, Cardiac (cardiac ablation) and Orthopedic (R hip replacement)
Social History
Tobacco: Non-smoker
Alcohol: None
Drug: None
Personal:
Living: With Family
Employment: Employed
Family History
Family History: Reviewed & Not Pertinent
Allergies / Home Medications
Allergies
Allergy/AdvReac Type Severity Reaction Status Date / Time
Sulfa (Sulfonamide Allergy Rash Verified 09/09/24 01:25
Antibiotics)
Home Medications
�Medication �Instructions �Recorded �Confirmed �Last Taken �Type
amlodipine 10 mg tablet 10 mg PO DAILY Blood Pressure 02/13/22 09/09/24 08/10/24 History
apixaban 5 mg tablet (Eliquis) 5 mg PO BID Blood Clot 02/13/22 09/09/24 08/10/24 History
Prevention/Tx
magnesium oxide 400 mg PO DAILY Supplement 02/13/22 09/09/24 08/10/24 History
sotalol 80 mg tablet 80 mg PO BID Arrhythmia 02/13/22 09/09/24 08/10/24 History
ascorbic acid (vitamin C) 500 mg 500 mg PO DAILY Supplement 08/10/24 09/09/24 08/10/24 History
tablet (Vitamin C)
betamethasone dipropionate 0.05 % 1 applic topical DAILYPRN PRN 08/10/24 09/09/24 Unknown History
topical cream eczema
cholecalciferol (vitamin D3) 25 25 mcg PO DAILY Supplement 08/10/24 09/09/24 08/10/24 History
mcg (1,000 unit) tablet (Vitamin
D3)
glucosamine sulfate 500 mg tablet 500 mg PO DAILY Supplement 08/10/24 09/09/24 08/10/24 History
(Glucosamine)
Review of Systems
-
Unable to Obtain full review of systems at this time due to: Patient Intubation
Vitals / Labs / Diagnostic Testing
Vital Signs
Temp Pulse Resp BP Pulse Ox
97.1 F 49 16 102/49 100
09/09/24 07:31 09/09/24 07:15 09/09/24 07:15 09/09/24 06:05 09/09/24 07:15
Lab Data
09/09/24 05:33
09/09/24 05:33
Laboratory Results
09/09/24 09/09/24 09/09/24
00:53 02:18 07:05
pH 7.07 L* 7.22 L 7.42
pCO2 84 H* 59 H 35
pO2 117 H 190 H 183 H
HCO3 24.3 24.1 22.7
O2 Delivery Level 94
Microbiology
09/09/24 00:53 Nasal Swab Influenza Types A & B (YANET) - Final
Negative for Influenza A & B, NAAT
Negative results must be combined with clinical observations
and patient history.
Nucleic Acid Amplification test (NAAT)performed on the
[employer] platform.
Diagnostic Testing:
Physical Exam
-
HEENT: Normocephalic, Anicteric and Moist Mucous Membranes
Cardiovascular: S1/S2 and Regular Rhythm
Respiratory: Wheeze
GI: Soft, Non Distended, Tender (LUQ), Normal Bowel Sounds and Other (coffee ground sputum production)
Skin: Warm, Dry and Good Color
General: Comfortable
Assessment
-
Assessment:
79yo M [facility] aflutter on eliquis, HTN, recent admission for COVID pneumonia (08/10-08/13) brought to [facility] ED after suffering respiratory arrest. Pt awakened at ~22:30 struggling to breathe. On EMS arrival, pt saturated 66% on room air. He became
unresponsive and was intubated en route.
Plan:
Acute hypercapneic respiratory failure
- intubated in the field
- abg improving
- wean FiO2 as able
Sepsis secondary to b/l pneumonia
- CXR and CT chest w b/l infiltrates
- SIRS: hypothermia, leukocytosis
- COVID/flu/MRSA neg
- lactate wnl
- blood cx pending
- IV abx
HFpEF (EF 60-65%)
Pulmonary edema
b/l pulmonary effusions
- orthopnea/nocturnal dyspnea, b/l pulm effusions
- weight unchanged, no edema
- proBNP elevated
- CT scan suggests RV overload
- keep K>4, Mg>2
- lasix, I/Os, daily weights
- echo 08/11: LVEF 60-65%, mod-severe MR, Pulm HTN
NSTEMI
- elevated troponin, trending upwards
- appreciate cardiology input
Paroxysmal Afib/Aflutter
- stable
- cont eliquis
- cont sotalol
Diet: NPO
DVT ppx: eliquis
GI ppx: PPI BID
Code status: full code

Documented by User: Oumar Carter MD 09/09/24 14:07
Assessment
-
Assessment:
79yo M [facility] aflutter on eliquis, HTN, recent admission for COVID pneumonia (08/10-08/13) brought to [facility] ED after suffering respiratory arrest. Pt awakened at ~22:30 struggling to breathe. On EMS arrival, pt saturated 66% on room air. He became
unresponsive and was intubated en route.
Plan:
Acute hypercapneic respiratory failure
- intubated in the field
- abg improving
- wean FiO2 as able
Sepsis secondary to b/l pneumonia
- CXR and CT chest w b/l infiltrates
- SIRS: hypothermia, leukocytosis
- COVID/flu/MRSA neg
- lactate wnl
- blood cx pending
- IV abx
HFpEF (EF 60-65%)
Pulmonary edema
b/l pulmonary effusions
- orthopnea/nocturnal dyspnea, b/l pulm effusions
- weight unchanged, no edema
- proBNP elevated
- CT scan suggests RV overload
- keep K>4, Mg>2
- lasix, I/Os, daily weights
- echo 08/11: LVEF 60-65%, mod-severe MR, Pulm HTN
NSTEMI
- elevated troponin, trending upwards
- appreciate cardiology input
Paroxysmal Afib/Aflutter
- stable
- cont eliquis
- cont sotalol
Diet: NPO
DVT ppx: eliquis
GI ppx: PPI BID
Code status: full code
I reviewed this patients case independently and in conjunction with the resident. I personally examined the patient. Patient's complex medical history, laboratory evaluations, events over the last 24 hours, radiographs, microbiological data were
all personally reviewed.
Agree with documented assessment and plan
Oumar Carter MD, [facility], [facility]
[2024-09-09] MEDS: NSS (PRESERVATIVE FREE) 10 ML IV (07:45)
[2024-09-09] MEDS: PROTONIX IV 40 MG IV (07:45)
[2024-09-09] MEDS: LASIX 20 MG IV ×2 (07:45→16:14)
[2024-09-09 07:53] LABS: INR 1.13; PT 14.8 Sec (11.4-14.6)
[2024-09-09 07:54] LABS: APTT 28.7 Sec (23.4-35.0)
[2024-09-09] MEDS: BETAPACE TUBE ×2 (08:40→20:06)
--- NOTE | 2024-09-09 08:54 | CON.INTV ---
Consultation
Consultation Request
Date/Time Consultation Requested: 09/09/2024-7 AM
Date/Time Consultation Performed: 09/09/2024-7:30 AM
Requesting Provider: hospitalist
Performing Provider: Dr. Carter
Reason for Consultation: respiratory failure/ventilator management/critical care management
Medical History
-
Chief Complaint: shortness of breath
History of Present Illness:
79-year-old never smoking male with a history of hypertension, atrial fibrillation/flutter/ablation with recent admission with covid infection presented with increasing shortness of breath and respiratory distress felt to have pneumonia and CHF
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 The patient is sedated on a ventilator and review of systems was unobtainable. Minimal secretions at this
time.
Past Medical History
Past Medical History: None ( Hypertension. Atrial fibrillation/flutter/ablation 2018. Right hip replacement 2022. Appendicitis 1956.)
Social History
Tobacco: Non-smoker
Alcohol: None
Drug: None
Personal:
Living: With Family
Occupational Exposures: No known asbestos exposure
Environmental Exposures: no known tuberculosis exposure
Family History
Family History: Reviewed & Not Pertinent
Allergies / Home Medications
Allergies
Allergy/AdvReac Type Severity Reaction Status Date / Time
Sulfa (Sulfonamide Allergy Rash Verified 09/09/24 01:25
Antibiotics)
Home Medications
�Medication �Instructions �Recorded �Confirmed �Last Taken �Type
amlodipine 10 mg tablet 10 mg PO DAILY Blood Pressure 02/13/22 09/09/24 08/10/24 History
apixaban 5 mg tablet (Eliquis) 5 mg PO BID Blood Clot 02/13/22 09/09/24 08/10/24 History
Prevention/Tx
magnesium oxide 400 mg PO DAILY Supplement 02/13/22 09/09/24 08/10/24 History
sotalol 80 mg tablet 80 mg PO BID Arrhythmia 02/13/22 09/09/24 08/10/24 History
ascorbic acid (vitamin C) 500 mg 500 mg PO DAILY Supplement 08/10/24 09/09/24 08/10/24 History
tablet (Vitamin C)
betamethasone dipropionate 0.05 % 1 applic topical DAILYPRN PRN 08/10/24 09/09/24 Unknown History
topical cream eczema
cholecalciferol (vitamin D3) 25 25 mcg PO DAILY Supplement 08/10/24 09/09/24 08/10/24 History
mcg (1,000 unit) tablet (Vitamin
D3)
glucosamine sulfate 500 mg tablet 500 mg PO DAILY Supplement 08/10/24 09/09/24 08/10/24 History
(Glucosamine)
Review of Systems
-
Unable to Obtain full review of systems at this time due to: Other ( per HPI)
Vitals / Labs / Diagnostic Testing
Vital Signs
Temp Pulse Resp BP Pulse Ox
97.1 F 59 16 122/55 98
09/09/24 07:31 09/09/24 08:00 09/09/24 08:00 09/09/24 08:00 09/09/24 08:00
Lab Data
09/09/24 05:33
09/09/24 05:33
Laboratory Results
09/09/24 09/09/24 09/09/24
00:53 02:18 07:05
PT 14.8 H
INR 1.13
APTT 28.7
pH 7.07 L* 7.22 L 7.42
pCO2 84 H* 59 H 35
pO2 117 H 190 H 183 H
HCO3 24.3 24.1 22.7
O2 Delivery Level 94
Microbiology
09/09/24 00:53 Nasal Swab Influenza Types A & B (YANET) - Final
Negative for Influenza A & B, NAAT
Negative results must be combined with clinical observations
and patient history.
Nucleic Acid Amplification test (NAAT)performed on the
[employer] platform.
Diagnostic Testing:
Physical Exam
-
Exam:
well-nourished and well-developed in no apparent distress
HEENT-atraumatic, normocephalic, oral tracheal intubation
Neck-supple, no JVD, no bruit
Heart-regular rate and rhythm-no murmurs, rubs or gallops
Chest-clear to auscultation, no wheezes, crackles at bases
Back-no tenderness
Abdomen-soft, nontender, nondistended, no hepatosplenomegaly
Extremities-no cyanosis, clubbing, edema and good peripheral pulses
Integument-intact, no rashes, lesions or ecchymosis
Neurologically sedated on a ventilator, not alert, not oriented and not moving extremities
Assessment
-
79-year-old never smoking male with a history of hypertension, atrial fibrillation/flutter/ablation with recent admission with covid infection presented with increasing shortness of breath and respiratory distress felt to have pneumonia and CHF
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
Acute hypercapnic respiratory failure requiring intubation- Suspect multifactorial-CHF, pneumonia
ABG 09/09/2024-80/117/7.07
Intubated 09/09/2024
Extubated
Pneumonia with recent hospitalization
CHF--preserved EF, diastolic dysfunction and severe mitral regurgitation
Elevated troponin
Paroxysmal atrial fibrillation on sotalol and Eliquis
Leukocytosis
Hyperglycemia
Coffee grounds and nasogastric tube
Conditions present prior to admission:
Hypertension.
Atrial fibrillation/flutter/ablation 2018.
Right hip replacement 2022.
Appendicitis 1956.
Plan
Respiratory decompensation likely a combination of pneumonia and CHF
Patient intubated and mechanically ventilated
Ventilator settings reviewed
Follow ABG
Ventilator adjusted
Spontaneous breathing trial once patient stabilized
Nebulizers if needed-currently not bronchospastic
VAP prevention protocol
Check cultures
Sputum culture
Empiric antibiotics-recently hospitalized and treated for pneumonia
Infectious disease consultation consideration
Follow leukocytosis
Trend troponin
Cardiology evaluation
Probable ongoing anticoagulation-Eliquis held with coffee grounds in nasogastric tube
Follow hemoglobin
PPI
Transfuse if needed
Monitor blood sugar
Insulin supplementation as needed
DVT prophylaxis-if anticoagulation not reinitiated then mechanical
GI prophylaxis-on PPI
Early nutrition
Early mobilization
Critical care statement: A total of 55 minutes of critical care time was provided for this patient today. This includes management of unstable vital signs, evaluation of the patient at bedside, reviewing the patient's pertinent medical records
including radiographs, Ventilator management, pressor management, microbiology, laboratory evaluations, and discussion with primary team, consultants, pharmacy, nutrition, physical therapy, case management, charge nurse, critical care nursing,
and respiratory therapy.
Diagnostic data:
Chest x-ray 08/10/24-left lower lobe infiltrate consistent with pneumonia
Chest x-ray 09/09/2024-
CT chest 09/09/2024-acute interstitial edema, dense bilateral lower lobe consolidations, small right and minimal left pleural effusion, severe calcified atherosclerotic plaque in the coronary arteries and aorta, mild cardiomegaly
CT head 09/09/2024-no CT evidence for intracranial hemorrhage or transcortical infarct, mild diffuse cerebral and cerebellar volume loss
Echocardiogram 08/11/2024-EF 60-65%, RV pressure volume overload, severe mitral regurgitation, PA systolic 56
Data Reviewed
-
EKG: Report reviewed by me
Radiology: Report reviewed by me
CT Scan: Report reviewed by me
Medical Tests (Nuc Med, Echo etc): Image personally visualized and interpreted
Labs: Labs reviewed by me
Old Records: Reviewed
Critical Care Time (in minutes): 55
--- NOTE | 2024-09-09 09:30 | PTCARENOTE ---
Rec'd care of patient at 0700. Troponin level up to 2.140. Resident notified. Repeat EKG obtained. Cardiology consult placed. Next Troponin level due at 1100. Patient intubated/sedated. Pupils equal and reactive; +2mm. Arousable to verbal and
tactile stimuli. Nodding head appropriately. SB with prolonged QT on tele. Rate in the 40-50's. Discussed with Delivery Recruiter & Resident. RN advised to hold 0800 dose of Sotalol. No edema. Palpable pulses. #7.5 ett, 25cm @ the lip. A/C 16/500/5/40%.
Lung sounds cta. +BS. OGT to low intermittent suction. Output dark brown, coffee-ground in appearance. Delivery Recruiter & Resident notified. Eliquis held. NPO. IV PPI administered as ordered. No BM. Morillo in place for critical I/O. Output increased s/p
administration of 20mg IV Lasix. Fentanyl/Propofol gtts infusing through LAC INT. VSS. Afebrile. Right radial cheryl leveled and zeroed.
--- NOTE | 2024-09-09 09:53 | CM ---
Spoke with patient's to obtain information for assessment. Patient's stated that patient lives with her in a one story home at [facility] in a house that is all one level with one step to enter. He has been independent with all of
his ADLs, personal care, dressing and bathing. 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 He ambulates independently but does have a walker and a cane from his knee replacement however no longer needs them. He has been working up
until a few weeks ago when he was admitted to acute care for Covid and Pneumonia. Patient has had VN services in the past but is not current. He has not been to a SNF.
Patient has a prescription plan and uses, [facility] in [facility] for all of his medications,
His PCP is Raiza Virgen.
Patient's stated that she is hoping patient can return home when stable for discharge.
Plan: Case management will continue to follow and assist with discharge planning. Patient's is hoping for home no needs.
[2024-09-09 11:17] LABS: Magnesium 1.9 mg/dl (1.6-2.3)
--- NOTE | 2024-09-09 11:40 | PTCARENOTE ---
Troponin level 8.010. Resident notified. Awaiting cardiology consultation.
[2024-09-09] MEDS: MAGNESIUM SULFATE 100 IV (12:00)
--- NOTE | 2024-09-09 12:13 | PTCARENOTE ---
Systems reviewed. No major changes. Patient remains sedated. Propofol titrated down. Following commands. MAEx4 upon request. SB with prolonged QT on tele. Repeat EKG per MD order. FIO2 weaned to 40%. Pulse ox 94%. Lung sounds cta. +BS. NPO. OGT to
LIS. Coffee ground output decreased from prior assessment. Morillo draining 45-70 cc/hr. Mag 1.9; repleted with 1 gram IV.
--- NOTE | 2024-09-09 12:45 | W.PN.HOSP.TC ---
Today's Communication/Plan
-
Still intubated
Assessment / Plan
Assessment / Plan
Impression:
Patient is an 79y M with PMH significant for hypertension and A-Fib / Flutter who presented to ED via EMS after being intubated in the field for respiratory distress.
Patient admitted to the ICU, currently intubated and sedated.
Treated for pneumonia, also concern of congestive heart failure.
Assessment/plan:
Acute Hypoxemic and Hypercapnic Respiratory Failure
- Admited to ICU for further evaluation and treatment.
- Intubated in the field due to hypoxemia and work of breathing / distress.
- ABG = 7.22 / 59 / 190.
- Adjust vent settings as needed.
-Discussed with ICU team
-Respiratory failure multifactorial with components of pneumonia / pulm edema.
Septic shock with acute organ dysfunction secondary bilateral Pneumonia
Sepsis present on admission
- CXR and CT with bibasilar infiltrates c/w pneumonia.
-Continue IV antibiotics.
Briefly on Levophed which d/c'd
- COVID / influenza negative today.
Acute diastolic CHF, pulmonary edema
Bilateral Pleural Effusions
- component of CHF given description of orthopnea / nocturnal dyspnea, effusions, etc.
- Weight unchanged per family and no peripheral edema, etc.
- CT scan suggests RV overload dysfunction.
-Continue Lasix for now
- Echo was done during recent visit and showed
Normal LV size and function without regional wall motion abnormality.
LVEF is 60-65% by visual estimation.
No LVH. Flattened septum in systole and diastole consistent with RV pressure
and volume overload.
Normal right ventricular size and function.
Moderate to severe mitral regurgitation.
Moderate to severely elevated estimated PASP at 56 mmHg.
Compared to prior from January 19, 2024, MR is now moderate to severe,
previously moderate, and estimated PASP is slightly higher at 56 mmHg,
previously 53 mmHg
Elevated troponin
- Troponin in the ED = 0.138 which is significant decreased from prior admission when troponin peaked at 1.6.
- Suspect non-ischemic myocardial injury.
-Appreciate cardiology input
Paroxysmal Atrial Fibrillation / Flutter
- Stable. Now in sinus rhythm.
- Continue Eliquis for stroke risk reduction.
- Continue sotalol.
CODE STATUS: Full code
DVT prophylaxis: Eliquis
Diet: NPO
Disposition: Continue ICU care
Total time spent on today's encounter was 75 minutes which included time spent in counseling the patient/family regarding diagnosis and treatment plan as listed above, goals of care, and symptom management. Case was discussed with nursing staff,
specialists, and care coordinators/case management. All labs and imaging personally reviewed by me. Remainder the time spent in detailed review of previous records, lab data, imaging, and other medical provider documentation.
Anticipated Discharge: > 48 hours
Subjective/Interval History
-
Date of Service: September 09, 2024
Patient admitted overnight with acute hypoxic respiratory failure.
Currently intubated/sedated.
Discussed with the ICU team.
Objective Data
-
Labs:
Laboratory Results
09/09/24 09/09/24 09/09/24
00:53 02:18 05:33
WBC 16.0 H 12.0 H
Hgb 13.5 12.3 L
Hct 41.1 36.5 L
Plt Count 449 H 356 D
PT
INR
APTT
HCO3 24.3 24.1
Sodium 136 136
Potassium 4.7 5.0
Chloride 101 103
Carbon Dioxide 24 23
BUN 22 H 23 H
Creatinine 1.0 0.9
Glucose 282 H 161 H
Calcium 9.1 9.2
Total Bilirubin 0.4 0.5
AST 19 37
ALT 16 16
Alkaline Phosphatase 61 46
09/09/24
07:05
WBC
Hgb
Hct
Plt Count
PT 14.8 H
INR 1.13
APTT 28.7
HCO3 22.7
Sodium
Potassium
Chloride
Carbon Dioxide
BUN
Creatinine
Glucose
Calcium
Total Bilirubin
AST
ALT
Alkaline Phosphatase
Vital Signs:
Vital Signs
Temp Pulse Resp BP Pulse Ox
98.7 F 55 16 110/50 94
09/09/24 12:00 09/09/24 12:15 09/09/24 12:15 09/09/24 12:00 09/09/24 12:15
I&O
09/08/24 09/09/24 09/10/24
06:59 06:59 06:59
Intake Total 15.7 / 571.4 891.6 / 891.6
Output Total 200 / 260 850 / 850
Balance -184.3 / 311.4 41.6 / 41.6
Physical Exam
-
General: Intubated
HEENT: Normocephalic and Atraumatic
Respiratory: Rales, Rhonchi and Crackles
Cardiac: Regular Rhythm and S1/S2
GI: Nondistended and Normal Bowel Sounds
Musculoskeletal: No Cyanosis and No Edema
Skin: Warm and Dry
Neuro: Other (Patient is sedated)
Psych: Other (Sedated)
[2024-09-09] MEDS: SUBLIMAZE 50 MCG IV (13:57)
--- NOTE | 2024-09-09 13:59 | CON.CAR ---
Consultation
Consultation Request
Date/Time Consultation Requested: 09/09/2024; 07:39
Date/Time Consultation Performed: 09/09/2024; 14:00
Requesting Provider: Merle Tellez D.O.
Performing Provider: Hubert Guevara D.O.
Reason for Consultation: Hypoxic respiratory failure, abnormal troponin.
Medical History
-
History of Present Illness:
79 y/o male with recent admission for COVID PNA and a history of HTN, moderate/severe mitral regurgitation and atrial fibrillation/flutter s/p ablation (2019) admitted with acute hypoxic and ventilator dependent respiratory failure. Per the H&P and
discussion with the patient's , the patient acknowledged orthopnea and paroxysmal nocturnal dyspnea. He had a similar episode the night prior to admission, but this resolved with upright positioning and increasing the air conditioner. On the
night of admission, he awoke after 90 minutes of sleep, but found himself unable to breath. Initially, his intended to bring him to the hospital but his situation deteriorated too rapidly. EMS was called. He was in severe respiratory
distress and was intubated in the field. The patient was given piperacillin/tazobactam and vancomycin. CXR shows severe acute cardiogenic pulmonary edema.
The patient was admitted to the ICU. An OG tube was placed and set to low intermittent suction. This revealed dark brown output. Apixaban was held. Morillo catheter was placed and furosemide 20 mg IV was given with increased with UOP. FiO2 has
been decreased to 40%. Throughout this process, troponin has risen from 0.138 --> 2.140 --> 8.010. Cardiology has been consulted regarding cardiogenic pulmonary edema and abnormal troponin.
DATA:
CXR, 09/09/2024:
IMPRESSION:
1. SEVERE ACUTE CARDIOGENIC PULMONARY EDEMA.
2. Mild cardiomegaly.
3. Endotracheal tube in normal position.
CT Chest, 09/09/2024:
IMPRESSION:
1. ACUTE INTERSTITIAL AND ALVEOLAR CARDIOGENIC PULMONARY EDEMA.
2. Large dense bilateral lower lobe airspace consolidations (atelectasis or pneumonia).
3. Small right and minimal left pleural effusions.
4. Severe calcific atherosclerotic plaque in the coronary arteries and aorta.
5. Mild cardiomegaly.
6. Endotracheal and nasogastric tubes in place.
CT Head, 09/09/2024:
IMPRESSION:
1. No CT evidence for acute intracranial hemorrhage or transcortical infarct.
2. Mild diffuse cerebral and cerebellar volume loss.
3. Mild periventricular white matter leukoaraiosis.
Past Medical History
Past Medical History: Arrhythmias (Atrial fibrillation/flutter.) and HTN
Past Surgical History: Cardiac (Atrial fibrillation/flutter Ablation (2019).)
Social History
Tobacco: Non-Smoker
Alcohol: None
Drug: None
Personal:
Living: With Family
Employment: Retired
Family History
Family History: Reviewed & Not Pertinent
Allergies / Home Medications
Allergy/AdvReac Type Severity Reaction Status Date / Time
Sulfa (Sulfonamide Allergy Rash Verified 09/09/24 01:25
Antibiotics)
�Medication �Instructions �Recorded �Confirmed �Type
amlodipine 10 mg tablet 10 mg PO DAILY Blood Pressure 02/13/22 09/09/24 History
apixaban 5 mg tablet (Eliquis) 5 mg PO BID Blood Clot 02/13/22 09/09/24 History
Prevention/Tx
magnesium oxide 400 mg PO DAILY Supplement 02/13/22 09/09/24 History
sotalol 80 mg tablet 80 mg PO BID Arrhythmia 02/13/22 09/09/24 History
ascorbic acid (vitamin C) 500 mg 500 mg PO DAILY Supplement 08/10/24 09/09/24 History
tablet (Vitamin C)
betamethasone dipropionate 0.05 % 1 applic topical DAILYPRN PRN 08/10/24 09/09/24 History
topical cream eczema
cholecalciferol (vitamin D3) 25 25 mcg PO DAILY Supplement 08/10/24 09/09/24 History
mcg (1,000 unit) tablet (Vitamin
D3)
glucosamine sulfate 500 mg tablet 500 mg PO DAILY Supplement 08/10/24 09/09/24 History
(Glucosamine)
Review of Systems
-
Unable to obtain full review of systems at this time due to: Acuity and Patient Intubation
History Source: Patient and Family
Constitutional: No Symptoms
EENT: No Symptoms
Respiratory: Trouble Breathing
Abdomen/GI: No Symptoms
: No Symptoms
Musculoskeletal: No Symptoms
Skin: No Symptoms
Neurological: No Symptoms
Endocrine: No Symptoms
Hematologic/Lymphatic: No Symptoms
Physical Exam
Vital Signs
Temp Pulse Resp BP Pulse Ox
37.1 C 58 16 110/50 93
09/09/24 12:00 09/09/24 13:45 09/09/24 13:45 09/09/24 12:00 09/09/24 13:45
Lab Results
09/09/24 05:33
09/09/24 05:33
Troponin I 8.010 ng/ml H* D 09/09/24 10:51
Xdl-T-Wsgloilrwfp Pept 2540 pg/ml 09/09/24 00:53
Physical Exam
General: Well Developed, Well Nourished, No Apparent Distress and Comfortable
HEENT: Normocephalic, Anicteric and Moist Mucous Membranes
Respiratory: Rhonchi and Non Labored Respirations
Cardiac: S1/S2 and Regular Rhythm
Breast: Deferred by me
GI: Soft, Non Tender, Non Distended and Normal Bowel Sounds
Rectal: Deferred by Provider
Musculoskeletal: No Clubbing and No Cyanosis
Skin: Warm and Dry
Neuro: AO x 3
Hematologic/Lymphatic: No Lymphadenopathy
Psych: Confused
Impression / Plan
-
Impression/Plan: 79 y/o male with HTN, atrial flutter/fibrillation s/p ablation, moderate/severe mitral regurgitation and recent COVID PNA admitted with acute, ventilator dependent hypoxic respiratory failure and abnormal troponin, possible coffee
ground emesis.
#Acute hypoxic respiratory failure
-Acute, threat to life.
-Ventilator dependent.
-CXR/CT shows cardiogenic pulmonary edema.
-Furosemide 20 mg IV given yesterday.
-Wean ventilator to extubation.
-Repeat echocardiogram.
#Abnormal troponin
-Acute.
-Trend to peak.
-Echocardiogram to assess regional wall motion.
-Given respiratory failure and troponin, re-evaluation of coronary anatomy is indicated.
-Caution needs to be exercised given coffee ground emesis in OG tube.
-Given his non-ischemic EKG, presence of possible GIB and relative clinical stability, we defer coronary angiography with a tentative plan to proceed on 09/12/2024.
-NPO on 10/01/2024 @ 23:59.
#Coffee ground emesis
-Acute.
-Heme check emesis.
-Hemeoccult stool.
-Hbg 12.3 <-- 13.5 (but similar to prior admission).
-Consider GI involvement if heme positive.
#Moderate/severe mitral regurgitation
-Acute on chronic.
-Possible nidus for acute hypoxic respiratory failure.
-We will consider MVr/M-SHARON as we proceed with cardiac catheterization.
-Patient may need a NAI for better mitral valve characterization.
#Atrial fibrillation/flutter
-Paroxysmal.
-Currently in NSR.
-Rate/rhythm control with sotalol, s/p prior ablation.
-CHADS2-Vasc = 4 (CHF, HTN, Age x2).
-Apixaban on hold in light of coffee ground emesis.
Critical Care Time = 48 minutes.
Data Reviewed
-
EKG: Tracing Personally Visualized and interpreted, Report Reviewed by me and Discussed with Physician
Radiology: Image Personally Visualized and interpreted and Report Reviewed by me
CT Scan: Report Reviewed by me
Medical Tests (Nuc Med, Echo etc): Image Personally Visualized and interpreted and Report Reviewed by me
Labs: Labs Reviewed by me
Old Records: Reviewed
--- NOTE | 2024-09-09 14:50 | PTCARENOTE ---
Framing Machine Tender at bedside. ECHO in progress.
[2024-09-09] MEDS: LEVOPHED 250 IV (15:22)
--- NOTE | 2024-09-09 15:25 | PTCARENOTE ---
ABP 80-90/30's. Correlating with BP cuff. Prop titrated down. Portable Sawyer notified. Levophed initiated.
--- NOTE | 2024-09-09 16:17 | W.PN.UPDATE ---
Update Note
Progress Note Update
Reevaluated patient at bedside
Marginal blood pressures-norepinephrine initiated
Stable otherwise
No active bleeding noted
Heme test stools
Follow hemoglobin
Neo potts-reviewed with critical care nursing
Reassess tomorrow whether anticoagulation can be reinitiated-probable cardiac cath on Thursday-? Heparin drip in the meantime
--- NOTE | 2024-09-09 16:41 | PTCARENOTE ---
Systems reviewed. Patient resting comfortably. Nodding head appropriately and following commands. NSR/SB on tele, rate in the 50-60's. Levophed infusing for MAP >65. Diastolic running low. Clarified with Manufacturing Systems Engineer; titrating Levophed for MAP>60.
Vent settings and lung sounds unchanged. OGT secretions unchanged. No BM. Morillo output > 30 cc/hr. 20 IV Lasix administered as ordered. Fent/Prop/Levophed infusing through peripheral INT. Repeat Troponin level ordered for 1699.
--- NOTE | 2024-09-09 20:00 | PTCARENOTE ---
on assessment pt intubated and sedated, on FEN, PROP, and LEVO gtt per orders, QUICK, follows some commands and nods appropriately, SB on the monitor, Eliquis on hold per MD, ETT 7.5, 24 at the lip, NPO, OGT 53 at the lip LIS with brown drainage,
almeida in place for critical Is&Os, R radial Ca intact and zeroed
--- NOTE | 2024-09-09 22:25 | W.PN.UPDATE ---
Update Note
Progress Note Update
[address] Garber for order clarification on heparin gtt. Patient does have small amount of coffee ground from OGT, no drop in hemoglobin, no bloody stools, troponin trending up, rhythm sinus bradycardia/sinus rhythm. Will
continue to trend H&H, heme test stools, trend troponin, and no heparin gtt for now will re-evaluate with dayteam with welder setter electron beam machine, hospitalist, and lsw.
--- NOTE | 2024-09-09 22:30 | PTCARENOTE ---
short pauses (1.44 sec) noted occasionally on monitor, CIRCUIT BOARD REPAIR TECHNICIAN made aware.
[2024-09-09 23:06] LABS: Hematocrit 29.7 % (39.0-52.0); Hemoglobin 10.5 g/dL (13.0-18.0)
[2024-09-10] VITALS (10 sets, daily range): BP systolic 111–200; BP diastolic 48–116; BMI 27.1
[2024-09-10] MEDS: SUBLIMAZE 50 MCG IV ×3 (01:17→12:51)
[2024-09-10] MEDS: ZOSYN 100 IV ×4 (01:20→20:29)
[2024-09-10] MEDS: DIPRIVAN 100 IV ×4 (01:20→17:54)
[2024-09-10 03:21] LABS: B.E. -2.4 mmol/L; HCO3 20.6 mmol/L (21-28); O2 Saturation % 98.7 % (94-98); PCO2 29 mmHg (35-48); PO2 107 mmHg (83-108); pH 7.46 (7.35-7.45)
[2024-09-10 03:25] LABS: Hematocrit 29.5 % (39.0-52.0); Hemoglobin 10.4 g/dL (13.0-18.0); Mean Corp Hgb Conc. 35.3 g/dL (33.0-37.0); Mean Corpuscular Hgb 27.7 pg (27.0-31.0); Mean Corpuscular Volume 78.5 fL (80.0-94.0); Mean Platelet Volume 9.5 fL (7.4-10.4); Platelet Count 350 10^3/uL (130-400); Red Blood Cell Count 3.76 10^6/uL (4.70-6.10); Red Cell Dist. Width 14.9 % (11.5-14.5); White Blood Cell Count 10.8 10^3/uL (4.8-10.8)
[2024-09-10] MEDS: SUBLIMAZE 100 IV (03:39)
[2024-09-10 03:55] LABS: Blood Urea Nitrogen 18 mg/dl (9-20); Calcium 8.4 mg/dl (8.4-10.2); Carbon Dioxide 21 mmol/L (22-30); Chloride 103 mmol/L (98-107); Estimated Creatinine Clearance 63 ml/min; Glucose 124 mg/dl (70-99); Potassium 3.2 mmol/L (3.5-5.1); Sodium 134 mmol/L (135-145); eGFR > 60.00
--- NOTE | 2024-09-10 04:00 | PTCARENOTE ---
no changes from prior assessment, pt appears comfortable in bed, QUICK and follows commands, unable to titrate down LEVO at this time
[2024-09-10] MEDS: KCL 270 MEQ IV (04:43)
[2024-09-10] MEDS: LEVOPHED 250 IV (05:51)
[2024-09-10] MEDS: BETAPACE TUBE ×2 (07:05→20:09)
[2024-09-10] MEDS: LASIX 20 MG IV (07:44)
[2024-09-10] MEDS: NSS (PRESERVATIVE FREE) 10 ML IV ×2 (07:44→20:29)
[2024-09-10] MEDS: PROTONIX IV 40 MG IV ×2 (07:44→20:28)
[2024-09-10] MEDS: MIRALAX 17 GRAMS TUBE (07:45)
--- NOTE | 2024-09-10 08:12 | W.PN.INTV ---
Today's Communication / Plan
Recommendations
Mechanical ventilation with daily SAT/SBT if clinically appropriate
Maintain SpO2 >90-94%
Continue diuresis
Strict I/O
PPI --> changed from once daily to twice daily
Sotalol, holding for bradycardia
Cardiology on board and recs appreciated
Continue Zosyn and follow-up cultures
Lightly sedate with goal RASS -1 to -2
SCDs for now, trend H&H
Continue ICU level care for this critically ill patient
Assessment
-
79-year-old never smoking male with a history of hypertension, atrial fibrillation/flutter/ablation with recent admission with covid infection presented with increasing shortness of breath and respiratory distress felt to have pneumonia and CHF
with CO2 retention requiring intubation-glue jointer operator consulted for ventilator/pneumonia/respiratory failure/critical care management 09/09/2024.
Acute hypercapnic respiratory failure requiring intubation- Suspect multifactorial-CHF, pneumonia
ABG 09/09/2024-80/117/7.07
Intubated 09/09/2024
Pneumonia with recent hospitalization
CHF--preserved EF (LVEF: 68%) and mild mitral regurgitation (via TTE on 09/09/2024)
Elevated troponin
Paroxysmal atrial fibrillation on sotalol and Eliquis
Leukocytosis
Hyperglycemia
Coffee grounds and nasogastric tube
Conditions present prior to admission:
Hypertension.
Atrial fibrillation/flutter/ablation 2018.
Right hip replacement 2022.
Appendicitis 1956.
Plan
Respiratory decompensation likely a combination of pneumonia and CHF
Patient intubated and mechanically ventilated
Ventilator settings reviewed
Follow ABG
Lightly sedate with goal RASS -1 to -2
Maintain SpO2 > 90-94% by adjusting PEEP + FiO2; wean down FiO2 as tolerated
Maintain plateau pressure <30
Ventilator adjusted
Spontaneous breathing trial once patient stabilized
Nebulizers if needed-currently not bronchospastic
VAP prevention protocol
Check cultures
Sputum culture (NGTD)
Blood cultures (collected x 2 on 09/09/2024 � NGTD)
Empiric antibiotics, currently on Zosyn since 09/09 - recently hospitalized and treated for pneumonia; Vanco discontinued given negative MRSA swab
Infectious disease consultation consideration
Follow leukocytosis
Trend troponin
Cardiology evaluation
Continue diuresis with Lasix 40 mg IV BID
Strict I/O; maintain net negative fluid balance as tolerated
Probable ongoing anticoagulation-Eliquis held with coffee grounds in nasogastric tube
Follow hemoglobin
PPI --> raise to BID
Transfuse if needed to keep Hb >7 g/dL
Monitor blood sugar with goal BG 140-180
Insulin supplementation as needed
DVT prophylaxis-SCDs for now given concern for UGIB on 09/09/2024 with coffee-ground emesis
GI prophylaxis-on PPI
Early nutrition
Early mobilization
Continue ICU level care for this critically ill patient
Critical care statement: A total of 51 minutes of critical care time was provided for this patient today. This includes management of unstable vital signs, evaluation of the patient at bedside, reviewing the patient's pertinent medical records
including radiographs, Ventilator management, pressor management, microbiology, laboratory evaluations, and discussion with primary team, consultants, pharmacy, nutrition, physical therapy, case management, charge nurse, critical care nursing,
and respiratory therapy.
Diagnostic data:
Chest x-ray 08/10/24-left lower lobe infiltrate consistent with pneumonia
Chest x-ray 09/09/2024-
CT chest 09/09/2024-acute interstitial edema, dense bilateral lower lobe consolidations, small right and minimal left pleural effusion, severe calcified atherosclerotic plaque in the coronary arteries and aorta, mild cardiomegaly
CT head 09/09/2024-no CT evidence for intracranial hemorrhage or transcortical infarct, mild diffuse cerebral and cerebellar volume loss
Echocardiogram 08/11/2024-EF 60-65%, RV pressure volume overload, severe mitral regurgitation, PA systolic 56
Subjective Dataa
Subjective Data
Date of Service:
Date of Service: September 10, 2024
Chief Complaint: Wrapper Stitcher Follow Up and Vent Management Follow Up
Subjective:
Patient seen this morning. Remains intubated on AC/CMV at 16/500/40%/5, with PIP: 28 cm water, VTE 493 mL and breathing at 17 breaths/min. Heart rate 80, BP via A-line: 181/71, BP via NIBP: 118/40, and saturating 98%. Patient's , Lili,
present at bedside and all questions were answered. He had low heart rate overnight due to suspected skipped beats. Also had coffee ground emesis yesterday although that has now resolved. Patient is currently on propofol at 15 mcg/kg/minute +
fentanyl at 25 mcg/hr. End-tidal CO2: 24
Review of Systems
General: Unobtainable - Sedation
Objective Data
Data Reviewed
Vital Signs / I&O / Oxygen:
Vital Signs
Temp Pulse Resp BP Pulse Ox
99.0 F 50 16 139/56 98
09/10/24 07:00 09/10/24 10:45 09/10/24 10:45 09/10/24 08:00 09/10/24 10:45
Intake and Output
09/09/24 09/10/24 09/11/24
06:59 06:59 06:59
Intake Total 15.7 / 571.4 1693.1 / 1986.5 659.2 / 659.2
Output Total 200 / 260 1750 / 1780 840 / 840
Balance -184.3 / 311.4 -56.9 / 206.5 -180.8 / -180.8
SaO2 [A/C] 98
SaO2 98
Physical Exam
General: Respiratory Distress (negative), Comfortable, Chills (negative) and Sweats (negative)
HEENT: Normocephalic and Anicteric
Cardiovascular: Regular Rhythm and Peripheral Edema (negative)
Respiratory: Wheeze (negative), Crackles (negative), Rhonchi (negative), Non-Labored Respirations and ET Tube (Mechanical breath sounds heard bilaterally)
GI: Soft, Non Distended, Non Tender and Normal Bowel Sounds
Neurology: Tremors (negative) and Other (Sedated but easily arousable to voice and following commands; able to lift up head from pillow)
Skin: Warm, Dry, Cyanosis (negative) and Jaundice (negative)
Labs/Micro/Reports
Lab Data
09/10/24 03:09
Laboratory Results
09/10/24
03:09
pH 7.46 H
pCO2 29 L
pO2 107
HCO3 20.6 L
O2 Delivery Level
Microbiology
09/09/24 00:55 Blood/Venous Blood Culture - Preliminary
No Growth in 24 hours- Final report to follow
09/09/24 00:55 Blood/Venous Blood Culture - Preliminary
No Growth in 24 hours- Final report to follow
09/09/24 16:22 Sputum Gram Stain - Preliminary
09/09/24 08:29 Nose Nasal Screen MRSA (PCR) - Final
MRSA not detected - performed by PCR methodology.
09/09/24 00:53 Nasal Swab Influenza Types A & B (YANET) - Final
Negative for Influenza A & B, NAAT
Negative results must be combined with clinical observations
and patient history.
Nucleic Acid Amplification test (NAAT)performed on the
[employer] NOW platform.
--- NOTE | 2024-09-10 09:47 | W.PN.CD ---
Today's Communication / Plan
-
Hold Eliquis
No IV heparin
IV diuresis
Anticipate cardiac cath Thursday
Add Aspirin now
59 minutes spent caring for this patient today, extensive review of records, discussing with ICU nurse, seeing patient, prepare this document.
Impression / Plan
-
Background: 79 y/o male with HTN, atrial flutter/fibrillation s/p ablation, moderate/severe mitral regurgitation and recent COVID PNA admitted with acute, ventilator dependent hypoxic respiratory failure and abnormal troponin, possible coffee ground
emesis.
Acute respiratory failure from HEART FAILURE, echo shows normal LVEF, so acute HFpEF
- Initial CXR/CT scans support severe left and right heart failure
- Weight is not that much lower
- Increase diuresis, I ordered
- Adjust GDMT for HFpEF over time. Given trop will include cardiac cath as part of workup
Elevated troponin, peak troponin 9.8
- Uncertatin if this is NSTEMI precipitation acute HFpEF or if this is non-ischemic myocardial injury from severe HF with perhaps severe underlying CAD
- Will not start IV heparin given the coffee ground emesis
- Cardiac cath prior to hospital discharge is appropriate
- Add ASA now
Coffee ground emesis
- on PPI, defer to medicine
Mitral regurgitation, echo on 09/09/2024 showed only mild MR, has been mod-severe in past
Known paroxysmal atrial fibrillation/flutter
- Eliquis on hold for coffee ground emeis
- On sotalol, hold parameters, SB with perhaps some blocked PACs
S/p COVID-19 infection early August 2024
Subjective:
Still intubated and sedated.
Echo 09/09/2024
Normal biventricular size and systolic function without regional wall motion
abnormality. LVEF 68%.
Mild concentric left ventricular hypertrophy.
There is flow acceleration across the LVOT but LVOT gradients were not
interrogated.
Mild tricuspid regurgitation. PASP 37 mmHg.
Compared to prior echocardiogram on 08/11/2024, mitral regurgitation has improved
(previously moderate to severe). PASP has decreased from 56 mmHg to 37 mmHg.
On previous echocardiogram, there is no suggestion of flow acceleration across
the LVOT. Suspect that LVOT acceleration on today's study is due to small
cavity size (LVIDD 4.2 cm from 5.3 cm prior).
Physical Exam
Vital Signs/Labs
Vital Signs
Temp Pulse Resp BP Pulse Ox
99.0 F 69 17 139/56 96
09/10/24 07:00 09/10/24 09:30 09/10/24 09:30 09/10/24 08:00 09/10/24 09:30
09/09/24 09/10/24 09/11/24
06:59 06:59 06:59
Actual Weight 88 kg 88.1 kg
09/10/24 03:09
PT 14.8 Sec (11.4-14.6) H 09/09/24 07:05
INR 1.13 09/09/24 07:05
APTT 28.7 Sec (23.4-35.0) 09/09/24 07:05
Magnesium 1.9 mg/dl (1.6-2.3) 09/09/24 05:33
Triglycerides 54 mg/dl (10-149) 09/09/24 05:33
09/09/24
00:53
Wmf-F-Eeadmutsesu Pept 2540
LAB Results
09/09/24 09/09/24 09/09/24
00:53 05:33 10:51
Troponin I 0.138 H* 2.140 H* D 8.010 H* D
09/09/24 09/09/24 09/10/24
16:52 22:53 04:54
Troponin I 9.780 H* 8.360 H* 6.750 H*
Data Reviewed
-
Date of Service: September 10, 2024
[2024-09-10] MEDS: LOW STRENGTH ASPIRIN 324 MG TUBE (10:11)
--- NOTE | 2024-09-10 10:52 | W.PN.HOSP.TC ---
Today's Communication/Plan
-
Continue ICU care
Assessment / Plan
Assessment / Plan
Impression:
Patient is an 79y M with PMH significant for hypertension and A-Fib / Flutter who presented to ED via EMS after being intubated in the field for respiratory distress.
Patient admitted to the ICU, currently intubated and sedated.
Treated for pneumonia, also concern of congestive heart failure.
Assessment/plan:
Acute Hypoxemic and Hypercapnic Respiratory Failure
- Admited to ICU for further evaluation and treatment.
- Intubated in the field due to hypoxemia and work of breathing / distress.
- ABG = 7.22 / 59 / 190.
- Adjust vent settings as needed.
-Discussed with ICU team
-Respiratory failure multifactorial with components of pneumonia / pulm edema.
Septic shock with acute organ dysfunction secondary bilateral Pneumonia
Sepsis present on admission
- CXR and CT with bibasilar infiltrates c/w pneumonia.
-Continue IV antibiotics.
Briefly on Levophed which d/c'd
- COVID / influenza negative today.
Acute diastolic CHF, pulmonary edema
Bilateral Pleural Effusions
- component of CHF given description of orthopnea / nocturnal dyspnea, effusions, etc.
- Weight unchanged per family and no peripheral edema, etc.
- CT scan suggests RV overload dysfunction.
-Continue Lasix for now
- Echo was done during recent visit and showed
Normal LV size and function without regional wall motion abnormality.
LVEF is 60-65% by visual estimation.
No LVH. Flattened septum in systole and diastole consistent with RV pressure
and volume overload.
Normal right ventricular size and function.
Moderate to severe mitral regurgitation.
Moderate to severely elevated estimated PASP at 56 mmHg.
Compared to prior from January 19, 2024, MR is now moderate to severe,
previously moderate, and estimated PASP is slightly higher at 56 mmHg,
previously 53 mmHg
Elevated troponin
- Troponin in the ED = 0.138 which is significant decreased from prior admission when troponin peaked at 1.6.
- Suspect non-ischemic myocardial injury.
-Appreciate cardiology input
09/10
Possible cardiac catheter on Thursday
Paroxysmal Atrial Fibrillation / Flutter
- Stable. Now in sinus rhythm.
- Continue Eliquis for stroke risk reduction.
- Continue sotalol.
CODE STATUS: Full code
DVT prophylaxis: Eliquis
Diet: NPO
Disposition: Continue ICU care
Total time spent on today's encounter was 75 minutes which included time spent in counseling the patient/family regarding diagnosis and treatment plan as listed above, goals of care, and symptom management. Case was discussed with nursing staff,
specialists, and care coordinators/case management. All labs and imaging personally reviewed by me. Remainder the time spent in detailed review of previous records, lab data, imaging, and other medical provider documentation.
Anticipated Discharge: > 48 hours
Subjective/Interval History
-
Date of Service: September 10, 2024
Currently intubated and sedated but can answer questions by moving his head.
Denies chest pain.
Objective Data
-
Labs:
Laboratory Results
09/09/24 09/10/24 09/10/24
22:53 03:09 10:20
WBC 10.8
Hgb 10.5 L 10.4 L
Hct 29.7 L 29.5 L
Plt Count 350
HCO3 20.6 L
Sodium 134 L Pending
Potassium 3.2 L D Pending
Chloride 103 Pending
Carbon Dioxide 21 L Pending
BUN 18 Pending
Creatinine 1.0 Pending
Glucose 124 H Pending
Calcium 8.4 Pending
Vital Signs:
Vital Signs
Temp Pulse Resp BP Pulse Ox
99.0 F 49 16 139/56 98
09/10/24 07:00 09/10/24 10:30 09/10/24 10:30 09/10/24 08:00 09/10/24 10:30
I&O
09/09/24 09/10/24 09/11/24
06:59 06:59 06:59
Intake Total 15.7 / 571.4 1693.1 / 1986.5 659.2 / 659.2
Output Total 200 / 260 1750 / 1780 840 / 840
Balance -184.3 / 311.4 -56.9 / 206.5 -180.8 / -180.8
Physical Exam
-
General: Intubated
HEENT: Normocephalic and Atraumatic
Respiratory: Rales, Rhonchi and Crackles
Cardiac: Regular Rhythm and S1/S2
GI: Nondistended and Normal Bowel Sounds
Musculoskeletal: No Cyanosis and No Edema
Skin: Warm and Dry
Neuro: Other (Patient is sedated)
Psych: Other (Sedated)
Data Reviewed
-
Diagnostic Radiology: Image personally visualized and interpreted and Report Reviewed by me
CT Scan: Image personally visualized and interpreted and Report Reviewed by me
Ultrasound: Image personally visualized and interpreted and Report Reviewed by me
MRI: Image personally visualized and interpreted and Report Reviewed by me
Medical Tests (Nuc Med, Echo etc): Image personally visualized and interpreted and Report Reviewed by me
Labs: Labs Reviewed by me
Old Records: Reviewed
[2024-09-10 11:27] LABS: Blood Urea Nitrogen 16 mg/dl (9-20); Calcium 8.8 mg/dl (8.4-10.2); Carbon Dioxide 23 mmol/L (22-30); Chloride 104 mmol/L (98-107); Estimated Creatinine Clearance 63 ml/min; Glucose 116 mg/dl (70-99); Potassium 3.9 mmol/L (3.5-5.1); Sodium 134 mmol/L (135-145); eGFR > 60.00
[2024-09-10] MEDS: LASIX 40 MG IV (16:23)
--- NOTE | 2024-09-10 18:27 | PTCARENOTE ---
0700- Rec'd care of patient. Patient intubated and sedated. Sedation weaned for SAT. Tolerated sedation weaning for roughly 45 minutes. CPOT up to 7, RASS +1. Fentanyl and Propofol titrated accordingly. Patient nodding head appropriately and
following commands. MAEx4. SB with 1st degree avb and prolonged QT on tele. Rate in the 40-50's. Occasionally alarming for HR of 39 with pauses. Sotalol held. #7.5 ett, 24 cm @ the lip. A/C 16/500/5/40%. Pulse ox 98%. Lung sounds diminished
throughout with fine crackles in left base. Small amount of thick yellow secretions suctioned from ett. +BS. No BM. Miralax administered through OGT as ordered. Morillo in place for critical I/O. Fentanyl/Propofol/Levophed infusing through LAC INT.
Right radial cheryl leveled and zeroed. K- 3.2 on am labs; repleted with 40meq IV.
0900- Levophed gtt weaned off.
1000- Tipple Boss at bedside. Plan discussed. IV Lasix dose increased to 40mg BID. 324 mg Aspirin administered through OGT. Repeat BMP sent.
1200- Lapping Machine Set Up Operator at bedside, requesting RN wean sedation for SBT. Fentanyl and Propofol weaned. Patient following commands. RASS -1 to 0. At 1225, patient placed on CPAP 5/5 40% by RT. Patient drowsy. Fentanyl gtt turned off and Propofol weaned
further. Patient unable to tolerate wean. After about 20 minutes, patient anxious, HR and BP elevated. Patient repositioned for comfort and emotional support provided. RASS +2, BP and HR continuing to rise. [place] alarming for SBP >200. HR in the
120's. Propofol gtt titrated up, Fentanyl bolus administered and Fentanyl gtt restarted. Lapping Machine Set Up Operator notified. RT contacted to stop SBT. While monitoring patient at bedside, patient coughing. Pulse ox down to 86%; volumes 0. ETT assessed and found
to be kinked. ETT repositioned and suctioning performed. Large amount of thick, barraza secretions suctioned from ett. EKG changes observed on tele monitor. Lapping Machine Set Up Operator called to bedside. Patient placed back on A/C vent settings. Rate increased to 18.
Vitals stabilized.
1600- Systems reviewed. Patient sedated on Fentanyl and Propofol gtts. RASS -2. SB-NSR on tele, rate in the 50-60's. Vent settings unchanged. Lung sounds shallow/diminished throughout. +BS. No BM. OGT to LIS. Output brown, coffee ground in
appearance. Morillo output 30-40 cc/hr. 40mg IV Lasix administered as ordered.
--- NOTE | 2024-09-10 19:55 | PTCARENOTE ---
on assessment pt intubated and sedated, on FEN and PROP gtt per orders, QUICK, follows some commands and nods appropriately, SR/SB on the monitor, anticoags on hold per MD, ETT 7.5, 24 at the lip, NPO, OGT 53 at the lip LIS with brown drainage, almeida
in place for critical Is&Os, R radial Ca intact and zeroed
[2024-09-11] VITALS: BP 128/52
[2024-09-11] MEDS: DIPRIVAN 100 IV ×3 (01:11→13:57)
[2024-09-11] MEDS: ZOSYN 100 IV ×4 (01:11→19:05)
--- NOTE | 2024-09-11 02:33 | PTCARENOTE ---
pt with multiple short pauses and HR dropped to 32, HR came back up to the 50s right after, MONOTYPE MACHINIST made aware
[2024-09-11 03:36] LABS: B.E. 0 mmol/L; HCO3 23.6 mmol/L (21-28); O2 Saturation % 99.2 % (94-98); PCO2 34 mmHg (35-48); PO2 139 mmHg (83-108); pH 7.45 (7.35-7.45)
[2024-09-11 03:45] LABS: Hemoglobin 10.6 g/dL (13.0-18.0); Mean Corp Hgb Conc. 35.3 g/dL (33.0-37.0); Mean Corpuscular Volume 79.2 fL (80.0-94.0); Mean Platelet Volume 9.4 fL (7.4-10.4); Platelet Count 338 10^3/uL (130-400); Red Blood Cell Count 3.79 10^6/uL (4.70-6.10); White Blood Cell Count 10.5 10^3/uL (4.8-10.8)
[2024-09-11 04:00] VITALS: BP 134/52
[2024-09-11 04:09] LABS: Blood Urea Nitrogen 14 mg/dl (9-20); Calcium 8.5 mg/dl (8.4-10.2); Carbon Dioxide 25 mmol/L (22-30); Chloride 103 mmol/L (98-107); Estimated Creatinine Clearance 57 ml/min; Glucose 106 mg/dl (70-99); Potassium 3.6 mmol/L (3.5-5.1); Sodium 136 mmol/L (135-145); eGFR > 60.00
[2024-09-11 05:14] VITALS: BMI 26.9
[2024-09-11 07:32] VITALS: BP 152/71
[2024-09-11] MEDS: MIRALAX 17 GRAMS TUBE (07:37)
[2024-09-11] MEDS: LOW STRENGTH ASPIRIN 81 MG TUBE (07:37)
[2024-09-11] MEDS: PROTONIX IV 40 MG IV ×2 (07:37→19:04)
[2024-09-11] MEDS: BETAPACE 80 MG TUBE (07:37)
[2024-09-11] MEDS: NSS (PRESERVATIVE FREE) 10 ML IV ×2 (07:38→19:04)
[2024-09-11] MEDS: LASIX 40 MG IV ×2 (07:38→15:35)
--- NOTE | 2024-09-11 07:59 | W.PN.INTV ---
Today's Communication / Plan
Recommendations
Mechanical ventilation with daily SAT/SBT if clinically appropriate
Maintain SpO2 >90-94%
Continue diuresis
Strict I/O
PPI
Sotalol, holding for bradycardia
Cardiology on board and recs appreciated -May consider cardioversion tomorrow if A-fib/flutter persists
Originally plan was for left heart catheterization tomorrow, however given he continues to be intubated, this may be postponed
Continue Zosyn and follow-up cultures (NGTD)
Lightly sedate with goal RASS -1 to -2
SCDs for now, trend H&H
Continue ICU level care for this critically ill patient
Assessment
-
79-year-old never smoking male with a history of hypertension, atrial fibrillation/flutter/ablation with recent admission with covid infection presented with increasing shortness of breath and respiratory distress felt to have pneumonia and CHF
with CO2 retention requiring intubation-correction warden consulted for ventilator/pneumonia/respiratory failure/critical care management 09/09/2024.
Acute hypercapnic respiratory failure requiring intubation (Intubated 09/09/2024) - suspect multifactorial-CHF, pneumonia
Pneumonia with recent hospitalization
Circulatory shock on vasopressors (due to sepsis and also sedation)
CHF-preserved EF (LVEF: 68%) and mild mitral regurgitation (via TTE on 09/09/2024)
Elevated troponin
Paroxysmal atrial fibrillation on sotalol and Eliquis
Leukocytosis
Hyperglycemia
Coffee ground emesis via nasogastric tube
Conditions present prior to admission:
Hypertension.
Atrial fibrillation/flutter/ablation 2018.
Right hip replacement 2022.
Appendicitis 1956.
Plan
Respiratory decompensation likely a combination of pneumonia and CHF
Patient intubated and mechanically ventilated
Unfortunately failed SBT on 09/10 due to tachypnea, significant hypertension, referring back to A-fib with RVR and then became altered
Ventilator settings reviewed
Follow ABG and adjust ventilator accordingly
Lightly sedate with goal RASS -1 to -2
Maintain SpO2 > 90-94% by adjusting PEEP + FiO2; wean down FiO2 as tolerated
Maintain plateau pressure <30
Daily SAT/SBT if clinically appropriate
Given that he becomes agitated when propofol reduced, start Precedex today to help wean down sedation; continue fentanyl drip as well
Nebulizers if needed-currently not bronchospastic
VAP prevention protocol
Cultures reviewed:
Sputum culture (NGTD)
Blood cultures (collected x 2 on 09/09/2024 � NGTD)
Empiric antibiotics, currently on Zosyn since 09/09 - recently hospitalized and treated for pneumonia; Vanco discontinued given negative MRSA swab
Infectious disease consultation consideration
Follow leukocytosis
Trend troponin
Cardiology evaluation
Continue diuresis with Lasix 40 mg IV BID
Strict I/O; maintain net negative fluid balance as tolerated
Eliquis held with coffee grounds in nasogastric tube on 09/09 (see below for further discussion about when to resume)
Follow hemoglobin
PPI --> on 09/10, Dr. Brooks raised to BID due to coffee ground emesis on 09/09 --> if H/H remain stable with no signs of UGIB by tomorrow then would decrease back down to once daily
Transfuse if needed to keep Hb >7 g/dL
Monitor blood sugar with goal BG 140-180
Insulin supplementation as needed
DVT prophylaxis-SCDs for now given concern for UGIB on 09/09/2024 with coffee-ground emesis --> no further signs of UGIB since 09/09 --> would consider resuming Eliquis tomorrow(09/12) if H/H stable and with no clinical Sx of an UGIB, iam if BUN remains
stable and <18-20
GI prophylaxis-on PPI
Early nutrition
Early mobilization
Continue ICU level care for this critically ill patient
Critical care statement: A total of 43 minutes of critical care time was provided for this patient today. This includes management of unstable vital signs, evaluation of the patient at bedside, reviewing the patient's pertinent medical records
including radiographs, Ventilator management, pressor management, microbiology, laboratory evaluations, and discussion with primary team, consultants, pharmacy, nutrition, physical therapy, case management, charge nurse, critical care nursing,
and respiratory therapy.
Diagnostic data:
Chest x-ray 08/10/24-left lower lobe infiltrate consistent with pneumonia
Chest x-ray 09/09/2024-
CT chest 09/09/2024-acute interstitial edema, dense bilateral lower lobe consolidations, small right and minimal left pleural effusion, severe calcified atherosclerotic plaque in the coronary arteries and aorta, mild cardiomegaly
CT head 09/09/2024-no CT evidence for intracranial hemorrhage or transcortical infarct, mild diffuse cerebral and cerebellar volume loss
Echocardiogram 08/11/2024-EF 60-65%, RV pressure volume overload, severe mitral regurgitation, PA systolic 56
Subjective Dataa
Subjective Data
Date of Service:
Date of Service: September 11, 2024
Chief Complaint: Biometrics Head Follow Up and Vent Management Follow Up
Subjective:
Patient seen this morning. Currently intubated on AC/CMV at 14/500/5/40%, with PIP 24 cmH2O, VTe 722mL and breathing at 31 breaths/min. He was agitated during this time. Heart rate 92, BP via A-line: 179/83 and saturating 97%. End-tidal CO2: 24.
He had reverted back to A-fib earlier this morning. Yesterday, he failed his SBT due to hypertension, development of rapid A-fib, tachypnea and then altered mental status. Patient currently sedated with propofol gtt at 50 mcg/kg/min, and fentanyl
gtt at 50 mcg/hr. Also on Levophed at 4 mcg/min. Today, he is having much more thick/barraza ETT secretions.
Review of Systems
General: Unobtainable - Sedation
Objective Data
Data Reviewed
Vital Signs / I&O / Oxygen:
Vital Signs
Temp Pulse Resp BP Pulse Ox
98.8 F 87 14 149/45 96
09/11/24 07:18 09/11/24 09:00 09/11/24 09:00 09/11/24 07:37 09/11/24 09:00
Intake and Output
09/10/24 09/11/24 09/12/24
06:59 06:59 06:59
Intake Total 1693.1 / 1988.5 1299.9 / 1595.6 319.8 / 319.8
Output Total 1750 / 1780 2540 / 2590 780 / 780
Balance -56.9 / 208.5 -1240.1 / -994.4 -460.2 / -460.2
SaO2 [A/C] 99
SaO2 96
Physical Exam
General: Respiratory Distress (negative), Comfortable, Chills (negative) and Sweats (negative)
HEENT: Normocephalic and Anicteric
Cardiovascular: Irregular Rhythm (Irregularly irregular) and Peripheral Edema (negative)
Respiratory: Wheeze (negative), Crackles (negative), Rhonchi (Bilateral), Non-Labored Respirations and ET Tube (Mechanical breath sounds heard bilaterally)
GI: Soft, Non Distended, Non Tender and Normal Bowel Sounds
Neurology: Tremors (negative) and Other (Sedated but easily arousable to voice and following commands; able to lift up head from pillow)
Skin: Warm, Dry, Cyanosis (negative) and Jaundice (negative)
Labs/Micro/Reports
Lab Data
09/11/24 03:10
09/11/24 03:10
Laboratory Results
09/11/24
03:10
pH 7.45
pCO2 34 L
pO2 139 H
HCO3 23.6
O2 Delivery Level
Microbiology
09/09/24 00:55 Blood/Venous Blood Culture - Preliminary
No Growth in 48 hours- Final report to follow
09/09/24 00:55 Blood/Venous Blood Culture - Preliminary
No Growth in 48 hours- Final report to follow
09/09/24 16:22 Sputum Respiratory Culture - Preliminary
NO GROWTH
09/09/24 16:22 Sputum Gram Stain - Preliminary
09/09/24 08:29 Nose Nasal Screen MRSA (PCR) - Final
MRSA not detected - performed by PCR methodology.
09/09/24 00:53 Nasal Swab Influenza Types A & B (YANET) - Final
Negative for Influenza A & B, NAAT
Negative results must be combined with clinical observations
and patient history.
Nucleic Acid Amplification test (NAAT)performed on the
[employer] platform.
--- NOTE | 2024-09-11 08:30 | PTCARENOTE ---
Rec'd care of patient at 0700. Patient intubated and sedated. Sedation weaned for SAT. Patient following commands and nodding head appropriately. MAEx4. Upon receiving patient, NSR with first degree avb on tele monitor. Around 0730, RN at bedside
and observed change in rhythm. EKG obtained- aflutter. Coordinator Hotels updated. Sotalol administered as ordered. Trace anasarca. Palpable pulses. #7.5 ett, found to be positioned @ 21cm. Respiratory therapist notified ett previously positioned at 24cm.
ETT repositioned back to 24 cm @ the lip by respiratory therapist. Vent settings : A/C 14/500/5/40%. Lung sounds diminished throughout. Moderate amount of thick barraza/brown secretions suctioned from ett. Hyper BS. Incontinent of smear of bm. NPO. OGT
to LIS. Clamped for meds. Morillo in place for critical I/O. Fentanyl and Propofol gtts infusing through LAC INT. Levophed off at 0700. Right radial cheryl leveled and zeroed.
--- NOTE | 2024-09-11 08:36 | RESPNOTE ---
ETT found to be on 21 at the lips and advanced the tube back to 24 at the lips and made secure. Will continue to monitor.
--- NOTE | 2024-09-11 09:50 | W.PN.CD ---
Today's Communication / Plan
-
Diuresis is not impressive (little weight loss) but dose of Lasix just increased with second dose yesterday
- May need to further increase Lasix
- Watch output
Continue to hold Eliquis
Aflutter started 0730 hrs on 09/11/2024 => will start IV heparin
Cardiac cath is planned for 09/12/2024
- If still extubated may hold off on cath
May proceed with cardioversion 09/12/2024 if aflutter persists
Critically ill, 35 minutes spent caring for patient today in the ICU
-
Impression / Plan
-
Background: 79 y/o male with HTN, atrial flutter/fibrillation s/p ablation, moderate/severe mitral regurgitation and recent COVID PNA admitted with acute, ventilator dependent hypoxic respiratory failure and abnormal troponin, possible coffee ground
emesis.
Acute respiratory failure from HEART FAILURE, echo shows normal LVEF, so acute HFpEF
- Still intubated, weight not down significantly
- Initial CXR/CT scans support severe left and right heart failure
- Weight is not that much lower
- Just increased diuresis with PM dose of IV Lasix yesterday, may need more diuresis adjustments, watch output today
- Adjust GDMT for HFpEF over time. Given trop will include cardiac cath as part of workup
Elevated troponin, peak troponin 9.8
- Uncertain if this is NSTEMI precipitation acute HFpEF or if this is non-ischemic myocardial injury from severe HF with perhaps severe underlying CAD
- Will not start IV heparin given the coffee ground emesis
- Cardiac cath prior to hospital discharge is appropriate
- ASA now on board
- Given H/H stability, improve NG output, on PPI, and now in flutter => add IV heparin
Coffee ground emesis on 09/09/2024
- on PPI, defer to medicine
- Resolved
Mitral regurgitation, echo on 09/09/2024 showed only mild MR, has been mod-severe in past
Known paroxysmal atrial fibrillation/flutter
- Eliquis on hold for coffee ground emesis and plans for cath
- On sotalol, hold parameters, SB with perhaps some blocked PACs
- Now back on sotalol
- No severe bradys, mostly blocked PACs
S/p COVID-19 infection early August 2024
Subjective:
Still intubated and sedated.
Echo 09/09/2024
Normal biventricular size and systolic function without regional wall motion
abnormality. LVEF 68%.
Mild concentric left ventricular hypertrophy.
There is flow acceleration across the LVOT but LVOT gradients were not
interrogated.
Mild tricuspid regurgitation. PASP 37 mmHg.
Compared to prior echocardiogram on 08/11/2024, mitral regurgitation has improved
(previously moderate to severe). PASP has decreased from 56 mmHg to 37 mmHg.
On previous echocardiogram, there is no suggestion of flow acceleration across
the LVOT. Suspect that LVOT acceleration on today's study is due to small
cavity size (LVIDD 4.2 cm from 5.3 cm prior).
Physical Exam
Vital Signs/Labs
Vital Signs
Temp Pulse Resp BP Pulse Ox
98.8 F 87 14 149/45 96
09/11/24 07:18 09/11/24 09:00 09/11/24 09:00 09/11/24 07:37 09/11/24 09:00
09/10/24 09/11/24 09/12/24
06:59 06:59 06:59
Actual Weight 88.1 kg 87.6 kg
09/11/24 03:10
09/11/24 03:10
PT 14.8 Sec (11.4-14.6) H 09/09/24 07:05
INR 1.13 09/09/24 07:05
APTT 28.7 Sec (23.4-35.0) 09/09/24 07:05
Magnesium 1.9 mg/dl (1.6-2.3) 09/09/24 05:33
Triglycerides 54 mg/dl (10-149) 09/09/24 05:33
09/09/24
00:53
Hef-F-Ubcguywcqwn Pept 2540
LAB Results
09/09/24 09/09/24 09/09/24
00:53 05:33 10:51
Troponin I 0.138 H* 2.140 H* D 8.010 H* D
09/09/24 09/09/24 09/10/24
16:52 22:53 04:54
Troponin I 9.780 H* 8.360 H* 6.750 H*
Physical Exam
Constitutional: Other (intubated and sedated)
Cardiovascular: Rhythm/rate is irregular
Respiratory: Respiratory effort normal and Crackles Present
GI: Soft and Distention absent
Neuro/Psych: Other (sedated on vent)
Data Reviewed
-
Date of Service: September 11, 2024
[2024-09-11 10:38] LABS: APTT 33.5 Sec (23.4-35.0)
[2024-09-11] MEDS: HEPARIN 4000 UNITS IV (10:51)
[2024-09-11] MEDS: HEPARIN 25000 UNITS/250 ML IV (10:54)
--- NOTE | 2024-09-11 10:58 | PTCARENOTE ---
Heparin gtt ordered by Program Manager. Baseline PTT obtained. 4000 unit bolus administered and Heparin gtt initiated. PTT ordered for 1700.
[2024-09-11] MEDS: SUBLIMAZE 50 MCG IV ×3 (11:53→19:04)
--- NOTE | 2024-09-11 12:15 | PTCARENOTE ---
RN and Land Surveying Manager at bedside to assess patient's readiness for SBT. SAT initiated at 0800. Patient agitated. Kicking legs and pulling on restraints. BP and HR elevated. Harmony reading 200/120's. HR 120's. Fentanyl bolus administered and sedation
increased. Patient inappropriate for SBT at current time. No other changes.
[2024-09-11] MEDS: KCL ELIXIR 40 MEQ TUBE (13:16)
[2024-09-11] MEDS: SUBLIMAZE 100 IV (13:55)
--- NOTE | 2024-09-11 14:33 | W.PN.HOSP.TC ---
Today's Communication/Plan
-
cardiac cath on Thursday
Assessment / Plan
Assessment / Plan
Impression:
Patient is an 79y M with PMH significant for hypertension and A-Fib / Flutter who presented to ED via EMS after being intubated in the field for respiratory distress.
Patient admitted to the ICU, currently intubated and sedated.
Treated for pneumonia, also concern of congestive heart failure.
Assessment/plan:
Acute Hypoxemic and Hypercapnic Respiratory Failure
- Admited to ICU for further evaluation and treatment.
- Intubated in the field due to hypoxemia and work of breathing / distress.
- ABG = 7.22 / 59 / 190.
- Adjust vent settings as needed.
-Discussed with ICU team
-Respiratory failure multifactorial with components of pneumonia / pulm edema.
09/11
Failed weaning protocol yesterday.
Continue to wean sedation today
Septic shock with acute organ dysfunction secondary bilateral Pneumonia
Sepsis present on admission
- CXR and CT with bibasilar infiltrates c/w pneumonia.
-Continue IV antibiotics.
Briefly on Levophed which d/c'd
- COVID / influenza negative today.
Acute diastolic CHF, pulmonary edema
Bilateral Pleural Effusions
- component of CHF given description of orthopnea / nocturnal dyspnea, effusions, etc.
- Weight unchanged per family and no peripheral edema, etc.
- CT scan suggests RV overload dysfunction.
-Continue Lasix for now
- Echo was done 08/11 showed
Normal LV size and function without regional wall motion abnormality.
LVEF is 60-65% by visual estimation.
No LVH. Flattened septum in systole and diastole consistent with RV pressure
and volume overload.
Normal right ventricular size and function.
Moderate to severe mitral regurgitation.
Moderate to severely elevated estimated PASP at 56 mmHg.
Compared to prior from January 19, 2024, MR is now moderate to severe,
previously moderate, and estimated PASP is slightly higher at 56 mmHg,
previously 53 mmHg
repeat echo 09/09 shows:
Normal biventricular size and systolic function without regional wall motion
abnormality. LVEF 68%.
Mild concentric left ventricular hypertrophy.
There is flow acceleration across the LVOT but LVOT gradients were not
interrogated.
Mild tricuspid regurgitatio
09/11
Cardiac cath Thursday
NSTEMI
Troponin Peaked to 9.780
Cardiology consulted
for cardiac catheter on Thursday
Paroxysmal Atrial Fibrillation / Flutter
- Stable. Now in sinus rhythm.
- Continue Eliquis for stroke risk reduction.
- Continue sotalol.
CODE STATUS: Full code
DVT prophylaxis: Eliquis
Diet: NPO
Disposition:cardiac cath on Thursday
Total time spent on today's encounter was 75 minutes which included time spent in counseling the patient/family regarding diagnosis and treatment plan as listed above, goals of care, and symptom management. Case was discussed with nursing staff,
specialists, and care coordinators/case management. All labs and imaging personally reviewed by me. Remainder the time spent in detailed review of previous records, lab data, imaging, and other medical provider documentation.
Anticipated Discharge: > 48 hours
Subjective/Interval History
-
Date of Service: September 11, 2024
She remains intubated but awake, answering question by moving his head.
Objective Data
-
Labs:
Laboratory Results
09/11/24 09/11/24 09/11/24
03:10 10:20 17:00
WBC 10.5
Hgb 10.6 L
Hct 30.0 L
Plt Count 338
APTT 33.5 Pending
HCO3 23.6
Sodium 136
Potassium 3.6
Chloride 103
Carbon Dioxide 25
BUN 14
Creatinine 1.1
Glucose 106 H
Calcium 8.5
Vital Signs:
Vital Signs
Temp Pulse Resp BP Pulse Ox
99.8 F 61 14 149/45 98
09/11/24 11:47 09/11/24 14:00 09/11/24 14:00 09/11/24 07:37 09/11/24 14:00
I&O
09/10/24 09/11/24 09/12/24
06:59 06:59 06:59
Intake Total 1693.1 / 1988.5 1299.9 / 1595.6 765.9 / 765.9
Output Total 1750 / 1780 2540 / 2590 192 / 1919
Balance -56.9 / 208.5 -1240.1 / -994.4 -1154.1 / -1154.1
Physical Exam
-
General: Intubated
HEENT: Normocephalic and Atraumatic
Respiratory: Rales, Rhonchi and Crackles
Cardiac: Regular Rhythm and S1/S2
GI: Nondistended and Normal Bowel Sounds
Musculoskeletal: No Cyanosis and No Edema
Skin: Warm and Dry
Neuro: Other (Patient is sedated)
Psych: Other (Sedated)
Data Reviewed
-
Diagnostic Radiology: Image personally visualized and interpreted and Report Reviewed by me
CT Scan: Image personally visualized and interpreted and Report Reviewed by me
Ultrasound: Image personally visualized and interpreted and Report Reviewed by me
MRI: Image personally visualized and interpreted and Report Reviewed by me
Medical Tests (Nuc Med, Echo etc): Image personally visualized and interpreted and Report Reviewed by me
Labs: Labs Reviewed by me
Old Records: Reviewed
--- NOTE | 2024-09-11 15:47 | PTCARENOTE ---
Patient more edematous throughout the shift. +2 edema in b/l hand/fingers. Wedding band removed and given to . B/l UE elevated on pillows.
[2024-09-11 16:00] VITALS: BP 128/65
[2024-09-11 17:32] LABS: APTT 73.3 Sec (23.4-35.0)
--- NOTE | 2024-09-11 17:55 | PTCARENOTE ---
PTT therapeutic. Repeat PTT ordered for 2299.
[2024-09-11] MEDS: BETAPACE TUBE (19:51)
[2024-09-11 20:00] VITALS: BP 111/57
--- NOTE | 2024-09-11 20:27 | PTCARENOTE ---
on assessment pt intubated and sedated, on Hep, FEN and PROP gtt per orders, QUICK, follows some commands and nods appropriately, AFIB on the monitor, ETT 7.5, 24 at the lip, NPO, OGT 53 at the lip LIS with brown drainage, almeida in place for critical
Is&Os, R radial Ca intact and zeroed
[2024-09-11 23:20] LABS: APTT 70.4 Sec (23.4-35.0)
[2024-09-12] VITALS (13 sets, daily range): BP systolic 92–210; BP diastolic 51–110; BMI 26.7
--- NOTE | 2024-09-12 00:30 | PTCARENOTE ---
pt titrated off LEVO per orders, sedation remains the same see MAR, no changes from prior assessment
[2024-09-12] MEDS: SUBLIMAZE 100 IV ×3 (02:22→19:21)
[2024-09-12] MEDS: ZOSYN 100 IV ×4 (02:22→19:40)
[2024-09-12] MEDS: DIPRIVAN 100 IV (02:22)
[2024-09-12 03:16] LABS: B.E. 0 mmol/L; HCO3 23.6 mmol/L (21-28); O2 Saturation % 97.9 % (94-98); PCO2 34 mmHg (35-48); PO2 87 mmHg (83-108); pH 7.45 (7.35-7.45)
[2024-09-12 03:19] LABS: Hemoglobin 11.2 g/dL (13.0-18.0); Mean Corpuscular Hgb 28.1 pg (27.0-31.0); Mean Corpuscular Volume 80.2 fL (80.0-94.0); Mean Platelet Volume 9.4 fL (7.4-10.4); Platelet Count 331 10^3/uL (130-400); Red Blood Cell Count 3.99 10^6/uL (4.70-6.10); Red Cell Dist. Width 14.9 % (11.5-14.5); White Blood Cell Count 10.6 10^3/uL (4.8-10.8)
--- NOTE | 2024-09-12 03:25 | PTCARENOTE ---
no changes from prior assessment, pt turned q2h, U/O 15-30ml/hr LIQUID CHLORINE OPERATOR made aware, pt bladder scanned for 0 ml
[2024-09-12 03:43] LABS: Blood Urea Nitrogen 16 mg/dl (9-20); Calcium 8.4 mg/dl (8.4-10.2); Carbon Dioxide 24 mmol/L (22-30); Chloride 104 mmol/L (98-107); Estimated Creatinine Clearance 57 ml/min; Glucose 105 mg/dl (70-99); Magnesium 1.9 mg/dl (1.6-2.3); Phosphorus 4.3 mg/dl (2.5-4.5); Potassium 3.7 mmol/L (3.5-5.1); Sodium 138 mmol/L (135-145); Triglycerides 90 mg/dl (10-149); eGFR > 60.00
[2024-09-12] MEDS: LASIX 40 MG IV ×3 (04:38→16:50)
[2024-09-12] MEDS: SUBLIMAZE 50 MCG IV ×2 (05:43→08:12)
--- NOTE | 2024-09-12 07:51 | W.PN.HOSP.TC ---
Addendum entered and electronically signed by Shayy Wright MD 09/12/24 14:24:
I saw and evaluated the patient. I reviewed the resident�s note and agree with findings and plan as documented in the resident�s note except for changes in my documentation.
Seen earlier. Late documentation.
79-year-old man with respiratory distress
On the vent
CVS: S1-S2 irregular
Chest: CTA B/L anterolateral
Abdomen: Soft, NT / Bowel sounds present
Extremities: No edema
STUDIO MODEL: Able to follow directions and moving all extremities
# Acute hypoxic and hypercapnic respiratory failure
Intubated in the field
Multifactorial respiratory failure secondary to pulmonary edema and pneumonia
Failed weaning protocol on 09/11/2024 and 09/12/24.
Precedex started
Machine Leather Trimmer following
# Bilateral pneumonia with septic shock
Aspiration pneumonia versus other such as community-acquired
COVID and influenza negative
Sputum cultures-negative
Speech evaluation when off the ventilator
Continue IV antibiotics-Zosyn
Off pressors
# Ygg-TUIUJ-cnoowwmj peaked at 9.7-cardiac cath 09/13/2024. On heparin drip currently, on aspirin also
# Acute HFpEF
Echo 09/09/2024-normal biventricular size and systolic function. EF 68%. Mild concentric LVH. Mild TR.
Bilateral pleural effusions
Reportedly weight unchanged
Continue Lasix
Cardiac cath 09/13/2024
# Paroxysmal atrial fibrillation/flutter-with ablation in the past-continue sotalol, Eliquis on hold-patient on heparin drip
# Mild hyponatremia-resolved
# Hypokalemia-resolved
# Microscopic hematuria-outpatient follow-up
# Hypertension hold Norvasc
# DVT prophylaxis-Eliquis on hold-patient on heparin drip
# Full code
Discussed with ICU nursing
Part of this note was created using voice recognition system. Occasional wrong word or��sound alike� substitutions may have inadvertently occurred due to the inherent limitations of voice recognition software. If noted kindly bring it to my
attention for correction.
Original Note:
Today's Communication/Plan
-
- cardiac cath today
- hold vent weaning today
- precedex drip
Assessment / Plan
Assessment / Plan
Assessment:
Pt is an 79yoM h HTN, afib/aflutter who presented to [facility] ED via EMS after being intubated in the field for respiratory distress. Admitted to the ICU for further management, currently intubated and sedated.
Plan:
Acute hypoxemia and hypercapnic respiratory failure
- respiratory failure secondary to pneumonia and pulmonary edema
- admitted to ICU for treatment
- intubated in the field secondary to hypoxemia, increased work of breathing, and respiratory distress
- ABG improving
- failed weaning protocol for past three days, pt becomes tachycardic and hypertensive w minimal stimulation
- hold weaning today in setting of cath today
Septic shock w acute organ dfxn secondary to b/l pneumonia
- COVID/flu neg
- CXR and chest CT: bibasilar infiltrates c/w pneumonia
- cont IV abx
- briefly on levophed, dc'ed
Acute on chronic diastolic CHF exacerbation
- orthopnea, nocturnal dyspena
- CXR/chest CT: pulm edema, b/l pleural effusions, RV strain
- cont lasix
- echo /: LVEF 60-65%, mod-severe MR, pulm HTN
- echo 5/: LVEF 68%, mild LVH, mild TR
NSTEMI
- troponins downtrending
- appreciate cardiology input
- cardiac cath today
Paroxysmal afib/aflutter
- stable
- cont home eliquis, sotalol
CODE STATUS: Full code
DVT prophylaxis: Eliquis
Diet: NPO
Anticipated Discharge: 24 - 48 hours
Subjective/Interval History
-
Date of Service: September 12, 2024
Remains intubated. Titrated off of levophed overnight. With minimal stimulation, pt's BP and HR increase. Have been trying to wean off of the vent for three days.
Objective Data
-
Labs:
Laboratory Results
09/11/24 09/12/24 09/12/24
22:58 02:59 05:50
WBC 10.6
Hgb 11.2 L
Hct 32.0 L
Plt Count 331
APTT 70.4 H 69.0 H
HCO3 23.6
Sodium 138
Potassium 3.7
Chloride 104
Carbon Dioxide 24
BUN 16
Creatinine 1.1
Glucose 105 H
Calcium 8.4
09/12/24
13:00
WBC
Hgb
Hct
Plt Count
APTT Pending
HCO3
Sodium
Potassium
Chloride
Carbon Dioxide
BUN
Creatinine
Glucose
Calcium
Vital Signs:
Vital Signs
Temp Pulse Resp BP Pulse Ox
100.1 F 73 14 120/50 91
09/11/24 19:00 09/12/24 06:30 09/12/24 06:30 09/12/24 04:38 09/12/24 06:30
I&O
09/11/24 09/12/24 09/13/24
06:59 06:59 06:59
Intake Total 1299.9 / 1595.6 1227.7 / 1227.7
Output Total 2540 / 2590 3100 / 3100
Balance -1240.1 / -994.4 -1872.3 / -1872.3
Review of Systems
-
Unable to obtain full review of systems at this time due to: Patient Intubation
Physical Exam
-
General: Well Developed, Well Nourished and Intubated
HEENT: Normocephalic, Atraumatic, Moist Mucous Membranes and PERRLA
Respiratory: Wheezes and Non Labored Respirations; Negative Rales, Rhonchi or Crackles
Cardiac: S1/S2 and Irregular Rhythm
GI: Soft, Nontender, Nondistended and Normal Bowel Sounds
Musculoskeletal: No Clubbing, No Cyanosis and No Edema
Skin: Warm and Dry
Neuro: Sedated
Psych: Calm
[2024-09-12] MEDS: NSS (PRESERVATIVE FREE) 10 ML IV ×2 (07:58→19:40)
[2024-09-12] MEDS: LOW STRENGTH ASPIRIN 81 MG TUBE (07:59)
[2024-09-12] MEDS: PROTONIX IV 40 MG IV ×2 (07:59→19:40)
[2024-09-12] MEDS: BETAPACE 80 MG TUBE ×2 (07:59→21:09)
--- NOTE | 2024-09-12 08:00 | PTCARENOTE ---
Patient received sedated on Diprivan and Fentanyl, intubated on ventilator. Bebe right radial leveled and zeroed. Attempt to wean down sedation. Patient immediately has elevated BP 210/110 with HR Rapid Afib/flutter 120-140s. Patient is awake and
following commands, anxious. Emotional support and encouragement given as needed. Sedation resumed and vent unchanged. BUL clear. Left base diminished with fine crackles. RML and RLL diminished. Aflutter on CM. Updated medical imaging technologist. Labs
reviewed. See assessment charted. Positive pulses x 4 extremities. BUE edema 1+. Abdomen soft. OGT to LIS, clamped after meds. Patient shakes head no when asked if in pain. Tolerated vent. Low grade temp core 100F. Room temp cooled, excess linens
removed. Patient slightly diaphoretic. Oral care rendered. Bed low and in locked position, HOB up 30 degrees. Call zuleta within reach.
--- NOTE | 2024-09-12 08:30 | W.PN.CD ---
Addendum entered and electronically signed by Hubert Guevara DO 09/12/24 17:10:
The patient was brought to the cardiac medical laboratory scientist for R/L heart cath.
Consent was obtained from the patient's .
While on the cath table, prior to the procedure, the patient was asked about proceeding, at which point he shook his head to indicate a negative response.
The patient was asked directed if he wished for us to perform the procedure, and he very clearly indicated 'no'.
Given this updated, the patient was taken back to his room for conservative management.
The patient's family was updated at bedside.
We will await his extubation when we can have a clearer conversation, outside the limitations of the currently needed sedation.
Original Note:
Today's Communication / Plan
-
Cath.
Check AM cortisol.
Agree with slow vent wean.
Impression / Plan
-
Background: 79 y/o male with HTN, atrial flutter/fibrillation s/p ablation, moderate/severe mitral regurgitation and recent COVID PNA admitted with acute, ventilator dependent hypoxic respiratory failure and abnormal troponin, possible coffee ground
emesis.
#Acute respiratory failure
-Acute, threat to life.
-Likely from acute HFpEF (LVEF 68%), though potentially multifactorial.
-Remains intubated.
-Likely cardiac catheterization today - we will assess filling pressures.
-GDMT when hemodynamics will tolerate.
-Check Cortisol.
#Elevated troponin
-Acute.
-Troponin peaked at 9.8.
-Uncertain if this is NSTEMI precipitation acute HFpEF or if this is non-ischemic myocardial injury from severe HF with perhaps severe underlying CAD.
-Plan for right/left heart catheterization today.
#Coffee ground emesis on 09/09/2024
-Resolved on PPI.
-H/H stable.
-Defer to medicine.
#Mitral regurgitation
-Chronic, improved.
-Echo on 09/09/2024 showed only mild MR, has been mod-severe in past.
#Paroxysmal atrial fibrillation/flutter
-Chronic, currently in NSR.
-Rate/rhythm control with sotalol. QTc 494 yesterday.
-CHADS2-Vasc = 4 (CHF, HTN, Age x2).
-All anticoagulation initially held for coffee-ground emesis.
-Heparin started for treatment of potential ACS after H/H remained stable and CGE resolved.
-Hold apixaban in light of likely cardiac catheterization today.
#Hx of COVID-19 infection, early August 2024
Critical Care Time = 42 minutes.
Subjective/Interval History:
Furosemide dose increased yesterday.
Weight down 0.8 kg.
Sotalol restarted 09/11/2024.
CXR shows improvement.
ABG 7.45/34/87/23.6
Still requiring low dose norepinephrine.
All vent weans have failed due to hyperventilation and anxiety.
ICU has discontinued propofol and is using precedex, plan for quetiapine this evening to assist with some nocturnal sedation.
Echo 09/09/2024
Normal biventricular size and systolic function without regional wall motion
abnormality. LVEF 68%.
Mild concentric left ventricular hypertrophy.
There is flow acceleration across the LVOT but LVOT gradients were not
interrogated.
Mild tricuspid regurgitation. PASP 37 mmHg.
Compared to prior echocardiogram on 08/11/2024, mitral regurgitation has improved
(previously moderate to severe). PASP has decreased from 56 mmHg to 37 mmHg.
On previous echocardiogram, there is no suggestion of flow acceleration across
the LVOT. Suspect that LVOT acceleration on today's study is due to small
cavity size (LVIDD 4.2 cm from 5.3 cm prior).
Physical Exam
Vital Signs/Labs
Vital Signs
Temp Pulse Resp BP Pulse Ox
37.6 C 82 14 139/76 98
09/12/24 07:30 09/12/24 08:15 09/12/24 08:15 09/12/24 08:00 09/12/24 08:15
09/10/24 09/11/24 09/12/24
11:59 11:59 11:59
Actual Weight 88.1 kg 87.6 kg 86.8 kg
09/12/24 02:59
09/12/24 02:59
PT 14.8 Sec (11.4-14.6) H 09/09/24 07:05
INR 1.13 09/09/24 07:05
APTT 69.0 Sec (23.4-35.0) H 09/12/24 05:50
Magnesium 1.9 mg/dl (1.6-2.3) 09/12/24 02:59
Triglycerides 90 mg/dl (10-149) 09/12/24 02:59
09/09/24
00:53
Exs-V-Tgnhkgboclv Pept 2540
LAB Results
09/09/24 09/09/24 09/09/24
10:51 16:52 22:53
Troponin I 8.010 H* D 9.780 H* 8.360 H*
09/10/24
04:54
Troponin I 6.750 H*
Physical Exam
Constitutional: No acute distress, Comfortable and Other (Nodding to yes/no questions.)
EENT: Anicteric, Moist mucous membranes and Other (ET tube in place.)
Cardiovascular: Pedal edema is absent, Rhythm/rate is irregular, S1S2 is normal and Murmur/rub/gallop absent
Respiratory: Respiratory effort normal and Other (Coarse.)
GI: Soft, Distention absent, Flat, Non tender and Normal bowel sounds
Neuro/Psych: Alert and Oriented (at least x2.)
Data Reviewed
-
Date of Service: September 12, 2024
Medical Decision Making: Reviewed Test Results, Independent Historian Assessment and Test Interpretation
EKG: Tracing Personally Visualized and interpreted and Report Reviewed by me
Echo: Tracing Personally Visualized and interpreted and Report Reviewed by me
X-Ray/CT/US/MRI/NUC/PET: Image Personally Visualized and interpreted and Report Reviewed by me
Labs: Labs Reviewed by me
Old Records: Reviewed
--- NOTE | 2024-09-12 09:00 | PTCARENOTE ---
Dr. Vasquez updated in rounds. New orders received.
[2024-09-12] MEDS: HEPARIN 25000 UNITS/250 ML IV (09:17)
[2024-09-12] MEDS: MIRALAX 17 GRAMS TUBE (11:06)
[2024-09-12] MEDS: PRECEDEX 100 IV ×2 (11:06→19:22)
--- NOTE | 2024-09-12 11:30 | PTCARENOTE ---
Report given verbally to NINO Acosta. Questions answered.
--- NOTE | 2024-09-12 11:45 | PTCARENOTE ---
Precedex gtt titrated for adequate sedation. Tolerating Diprivan gtt off. Updated patient's family, questions answered.
[2024-09-12] MEDS: KCL ELIXIR 40 MEQ PO (13:05)
[2024-09-12] MEDS: MAGNESIUM SULFATE 100 IV (13:05)
[2024-09-12 13:56] LABS: APTT 62.8 Sec (23.4-35.0)
--- NOTE | 2024-09-12 14:13 | PTCARENOTE ---
Updated assessment, vital signs ongoing and as documented. Follow up plan of cares. Tube feed on hold and for evaluation to lab[facility]. Dr Guevara at bedside, updated plan of cares and cath with family. Continue update with pharmacy and drip
titration. Follow up medications via emar. Critical care nursing at bedside.
--- NOTE | 2024-09-12 15:12 | W.PN.INTV ---
Addendum entered and electronically signed by Nereyda Vasquez MD 09/12/24 18:13:
Start tube feeding. Osmolilte at 70 ml/h with 25ml/h auto flush.
Original Note:
Today's Communication / Plan
Recommendations
- Add Seroquel 50 mg nightly, start Precedex and wean propofol. Reattempt SAT/SBT in a.m.
- Switch volume-controlled mode to ASV, target minute ventilation 7.6 L.
- Follow-up chest x-ray in a.m.
Assessment
-
79-year-old never smoking male with a history of hypertension, atrial fibrillation/flutter/ablation with recent admission with covid infection presented with increasing shortness of breath and respiratory distress felt to have pneumonia and CHF
with CO2 retention requiring intubation-life coach consulted for ventilator/pneumonia/respiratory failure/critical care management 09/09/2024.
Last 24 hrs:
- Patient failed SAT and SBT in view of tachycardia as well as significantly elevated blood pressure
- WBC count normal today at 10.6. CBC otherwise stable. Electrolytes unremarkable
- ABG 7.45, 34, 87 at 40% FiO2 and 5 of PEEP. Currently on fentanyl at 150 and propofol at 10. Also on heparin drip. Off Levophed now.
- Fluid management, -800 mL
#1. Acute hypercapnic respiratory failure requiring intubation (Intubated 09/09/2024) - suspect multifactorial-CHF, pneumonia
-Clinical presentation appears to be more related to pulmonary edema.
-Follow-up chest x-ray quite improved, continue Lasix 40 mg twice daily.
-Failed SAT SBT today. Will add nightly Seroquel and initiate Precedex with the plan to wean off propofol and reattempt SAT/SBT in a.m.
- Trial of ASV. Minute ventilation 7.6, target 100%.
#2. Pneumonia with recent hospitalization
-Presentation appears more suggestive of pulmonary edema rather than pneumonia.
-MRSA screen negative. Influenza A,B and COVID-19 negative. All cultures have stayed negative. Will complete 7 days of Zosyn.
#3. Circulatory shock.
- Resolved, patient is off pressors now.
- ?related to CHF, improving with duyresis
#4. Pulmonary edema with heart failure with preserved ejection fraction. EF 68%. Pulmonary artery systolic pressure around 37.
-Continue Lasix 40 mg IV twice daily, cardiology service on case
-Patient was scheduled for a right heart cath and left heart catheter today. Patient refused the procedure once he was in the [place].
-Follow-up chest x-ray and BNP in a.m.
#5. NSTEMI. ? Type I versus type II
-Currently on aspirin, heparin drip.
-Patient declined left heart catheter today. Cardiology service on case
#6. Paroxysmal atrial fibrillation on sotalol and Eliquis
-Currently on heparin drip.
#7. Coffee ground emesis via nasogastric tube
- Resolved, currently on Protonix 40 mg twice daily
Conditions present prior to admission:
Hypertension.
Atrial fibrillation/flutter/ablation 2018.
Right hip replacement 2022.
Appendicitis 1956.
Critical Care time 65 mins -- The patient is admitted for acute critical illness for the treatment of vital organ failure and/or prevention of further life-threatening conditions. Total care includes time spent in review of history, physical exam,
medications, hemodynamic/ventilator parameters, laboratory data, imaging and discussion with house staff, pharmacy, respiratory therapy, supervisor rides, and nursing.
Diagnostic data:
Chest x-ray 08/10/24-left lower lobe infiltrate consistent with pneumonia
Chest x-ray 09/09/2024-
CT chest 09/09/2024-acute interstitial edema, dense bilateral lower lobe consolidations, small right and minimal left pleural effusion, severe calcified atherosclerotic plaque in the coronary arteries and aorta, mild cardiomegaly
CT head 09/09/2024-no CT evidence for intracranial hemorrhage or transcortical infarct, mild diffuse cerebral and cerebellar volume loss
Echocardiogram 08/11/2024-EF 60-65%, RV pressure volume overload, severe mitral regurgitation, PA systolic 56
Subjective Dataa
Subjective Data
Date of Service:
Date of Service: September 12, 2024
Chief Complaint: Senior Sales Consultant Follow Up and Vent Management Follow Up
Subjective:
Patient intubated, mechanically ventilated.
Review of Systems
General: Unobtainable - Sedation
Objective Data
Data Reviewed
Vital Signs / I&O / Oxygen:
Vital Signs
Temp Pulse Resp BP Pulse Ox
99.9 F 74 16 128/52 98
09/12/24 13:10 09/12/24 13:10 09/12/24 13:10 09/12/24 13:10 09/12/24 13:12
Intake and Output
09/11/24 09/12/24 09/13/24
06:59 06:59 06:59
Intake Total 1299.9 / 1595.6 1227.7 / 1255.0 602.8 / 602.8
Output Total 2540 / 2590 3100 / 3100 705 / 705
Balance -1240.1 / -994.4 -1872.3 / -1845.0 -102.2 / -102.2
SaO2 [A/C] 96
SaO2 98
Physical Exam
General: Comfortable
HEENT: Normocephalic and Anicteric
Cardiovascular: Irregular Rhythm (Irregularly irregular) and Peripheral Edema (negative)
Respiratory: Clear
GI: Soft, Non Distended, Non Tender and Normal Bowel Sounds
Neurology: Other (Sedated on mechanical ventilation )
Skin: Warm and Dry
Labs/Micro/Reports
Lab Data
09/12/24 02:59
09/12/24 02:59
Laboratory Results
09/11/24 09/11/24 09/12/24
17:06 22:58 02:59
APTT 73.3 H 70.4 H
pH 7.45
pCO2 34 L
pO2 87
HCO3 23.6
O2 Delivery Level
09/12/24 09/12/24
05:50 13:27
APTT 69.0 H 62.8 H
pH
pCO2
pO2
HCO3
O2 Delivery Level
Microbiology
09/09/24 00:55 Blood/Venous Blood Culture - Preliminary
No Growth in 72 hours- Final report to follow
09/09/24 00:55 Blood/Venous Blood Culture - Preliminary
No Growth in 72 hours- Final report to follow
09/09/24 16:22 Sputum Respiratory Culture - Final
NO GROWTH
09/09/24 16:22 Sputum Gram Stain - Final
--- NOTE | 2024-09-12 15:49 | CM ---
CM following re: discharge planning.
Reviewed pt's chart, met with pt.
Pt intubated on 09/09/24, remains unintubated, short weaning trial today, continue supportive care.
D/C plan: uncertain at this time and will depend on pt's progress.
CM will follow with discharge plan updates as hospitalization progresses
--- NOTE | 2024-09-12 17:40 | PTCARENOTE ---
Assessments unchanged. Follow up plan of cares with cardiology and bonding machine operator team. Complete bed bath at this time. Family going home for evening. Update continue plan to progress toward SBT in am. Await nutritional follow up. Continue to explain
all procedures and protocols. Follow up plan of cares with respiratory cares team. Follow up labs as ordered, continue cv trend on heparin drip. Hourly rounds and safety checks ongoing.
[2024-09-12 18:48] LABS: Cortisol, Random 6.5 ug/dl
--- NOTE | 2024-09-12 20:00 | PTCARENOTE ---
Patient received in bed intubated and sedated on fentanyl and precedex gtts. Bilateral wrist restraints maintained. Afib on monitor, afebrile, blood pressure as documented. Palpable pulses throughout. No edema noted. # 7.5 ETT at 24 cm ,
tolerating ASV 100% FIO2 40% Peep 5, lungs coarse throughout. OG tube. Abdomen round with hypoactive bowel sounds. Thermister almeida draining yellow urine. #18 g in LAC with Fentanyl and Levophed gtts infusing as documented. #18 g in left forearm
with Heparin gtt infusing as ordered, #18 g in left wrist with Precedex gtt infusing as ordered. Turned and repositioned
[2024-09-12] MEDS: LEVOPHED 250 IV (21:07)
[2024-09-12] MEDS: SEROQUEL 50 MG PO (21:50)
--- NOTE | 2024-09-12 21:53 | PTCARENOTE ---
Patient converted to NSR
[2024-09-13] VITALS (18 sets, daily range): BP systolic 116–175; BP diastolic 47–74; BMI 26.1
[2024-09-13] MEDS: ZOSYN 100 IV ×3 (02:02→14:11)
[2024-09-13] MEDS: SUBLIMAZE 100 IV (02:53)
[2024-09-13 03:29] LABS: B.E. -0.5 mmol/L; HCO3 21.8 mmol/L (21-28); O2 Saturation % 99.5 % (94-98); PCO2 28 mmHg (35-48); PO2 155 mmHg (83-108)
[2024-09-13 03:30] LABS: O2 Therapy 40
--- NOTE | 2024-09-13 03:41 | PTCARENOTE ---
Patient reassessed, attempted to wean off Levophed gtt- unsuccessful. CHG bath given, linens changed. Labs sent
[2024-09-13 03:44] LABS: Hematocrit 31.9 % (39.0-52.0); Hemoglobin 11.3 g/dL (13.0-18.0); Mean Corp Hgb Conc. 35.4 g/dL (33.0-37.0); Mean Platelet Volume 9.3 fL (7.4-10.4); Platelet Count 345 10^3/uL (130-400); Red Blood Cell Count 4.04 10^6/uL (4.70-6.10); Red Cell Dist. Width 14.4 % (11.5-14.5); White Blood Cell Count 11.6 10^3/uL (4.8-10.8)
[2024-09-13 03:45] LABS: APTT 82.8 Sec (23.4-35.0)
[2024-09-13 04:01] LABS: ALT (SGPT) 16 U/L (0-50); AST (SGOT) 24 U/L (17-59); Albumin 3.6 g/dl (3.5-5.0); Alkaline Phosphatase 46 U/L (38-126); Blood Urea Nitrogen 20 mg/dl (9-20); Calcium 8.9 mg/dl (8.4-10.2); Carbon Dioxide 21 mmol/L (22-30); Chloride 103 mmol/L (98-107); Estimated Creatinine Clearance 52 ml/min; Glucose 136 mg/dl (70-99); Potassium 3.6 mmol/L (3.5-5.1); Sodium 139 mmol/L (135-145); Total Bilirubin 0.8 mg/dl (0.2-1.3); eGFR > 60.00
[2024-09-13 04:07] LABS: NT-proBNP 6190 pg/ml
[2024-09-13] MEDS: HEPARIN 25000 UNITS/250 ML IV ×2 (04:12→22:27)
[2024-09-13] MEDS: PRECEDEX 100 IV (04:12)
[2024-09-13 04:30] LABS: Cortisol, Random 9.1 ug/dl
--- NOTE | 2024-09-13 07:11 | W.PN.CD ---
Today's Communication / Plan
-
Continue diuresis.
Role for stress dose steroids?
Wean vent to extubate in the setting of dexmedetomidine and quetiapine.
Wean norepinephrine.
Impression / Plan
-
Background: 79 y/o male with HTN, atrial flutter/fibrillation s/p ablation, moderate/severe mitral regurgitation and recent COVID PNA admitted with acute, ventilator dependent hypoxic respiratory failure and abnormal troponin, possible coffee ground
emesis.
#Acute respiratory failure
-Acute, threat to life.
-Likely from acute HFpEF (LVEF 68%), though potentially multifactorial.
-Remains intubated.
-ABX continue (piperacillin/tazobactam day 5). No obvious infection source (UA is no obviously infected, CXR is improving with diuresis).
-GDMT when hemodynamics will tolerate.
-Cortisol is in the 'normal' range, but this seems inappropriately normal given the patient's physiologic stress. Role for stress dose steroids?
#Elevated troponin
-Acute.
-Troponin peaked at 9.8.
-Uncertain if this is NSTEMI precipitation acute HFpEF or if this is non-ischemic myocardial injury from severe HF with perhaps severe underlying CAD.
-Plan for right/left heart catheterization when he is amenable.
#Coffee ground emesis on 09/09/2024
-Resolved on PPI.
-H/H stable.
-Defer to medicine.
#Mitral regurgitation
-Chronic, improved.
-Echo on 09/09/2024 showed only mild MR, has been mod-severe in past.
#Paroxysmal atrial fibrillation/flutter
-Chronic, currently in NSR.
-Rate/rhythm control with sotalol. QTc 494 yesterday.
-CHADS2-Vasc = 4 (CHF, HTN, Age x2).
-All anticoagulation initially held for coffee-ground emesis.
-Heparin started for treatment of potential ACS after H/H remained stable and CGE resolved.
-Hold apixaban in light of likely cardiac catheterization during this hospitalization.
#Hx of COVID-19 infection, early August 2024
Critical Care Time = 38 minutes.
Subjective/Interval History:
Cardiac catheterization attempted yesterday. Consent signed by . Patient was awake in [facility] and declined procedure.
Remains on norepinephrine gtt after unsuccessful wean.
Spontaneously converted to NSR @ 21:53.
Weight down 2.1 kg.
Vent settings remain minimal but the patient has been unable to extubate.
Dexmedetomidine running and quetiapine added for nocturnal sedation in an attempt to maintain calm in an attempt to extubate.
HCO3 down to 21.
Echo 09/09/2024
Normal biventricular size and systolic function without regional wall motion
abnormality. LVEF 68%.
Mild concentric left ventricular hypertrophy.
There is flow acceleration across the LVOT but LVOT gradients were not
interrogated.
Mild tricuspid regurgitation. PASP 37 mmHg.
Compared to prior echocardiogram on 08/11/2024, mitral regurgitation has improved
(previously moderate to severe). PASP has decreased from 56 mmHg to 37 mmHg.
On previous echocardiogram, there is no suggestion of flow acceleration across
the LVOT. Suspect that LVOT acceleration on today's study is due to small
cavity size (LVIDD 4.2 cm from 5.3 cm prior).
Physical Exam
Vital Signs/Labs
Vital Signs
Temp Pulse Resp BP Pulse Ox
37.3 C 55 12 139/55 98
09/13/24 03:40 09/13/24 06:30 09/13/24 06:30 09/13/24 06:00 09/13/24 06:30
09/11/24 09/12/24 09/13/24
11:59 11:59 11:59
Actual Weight 87.6 kg 86.8 kg 84.7 kg
09/13/24 03:18
09/13/24 03:18
PT 14.8 Sec (11.4-14.6) H 09/09/24 07:05
INR 1.13 09/09/24 07:05
APTT 82.8 Sec (23.4-35.0) H 09/13/24 03:18
Magnesium 1.9 mg/dl (1.6-2.3) 09/12/24 02:59
Triglycerides 90 mg/dl (10-149) 09/12/24 02:59
09/09/24 09/13/24
00:53 03:18
Joi-I-Sqlvrgqvqna Pept [id number]
Physical Exam
Constitutional: No acute distress and Comfortable
EENT: Anicteric and Moist mucous membranes
Cardiovascular: Rhythm & rate is regular, Pedal edema is absent, JVD pressure is normal, S1S2 is normal and Murmur/rub/gallop absent
Respiratory: Respiratory effort normal and Other (Coarse.)
GI: Soft, Distention absent, Flat, Non tender and Normal bowel sounds
Neuro/Psych: Other (Intubated/sedated, responsive to questions.)
Data Reviewed
-
Date of Service: September 13, 2024
Medical Decision Making: Reviewed Test Results, Test Interpretation and Review of Case with other Provider
EKG: Tracing Personally Visualized and interpreted and Report Reviewed by me
Echo: Tracing Personally Visualized and interpreted and Report Reviewed by me
X-Ray/CT/US/MRI/NUC/PET: Image Personally Visualized and interpreted and Report Reviewed by me
Labs: Labs Reviewed by me
Old Records: Reviewed
[2024-09-13] MEDS: BETAPACE 80 MG TUBE (08:06)
[2024-09-13] MEDS: LASIX 40 MG IV ×2 (08:07→16:26)
[2024-09-13] MEDS: PROTONIX IV 40 MG IV ×2 (08:08→19:52)
[2024-09-13] MEDS: LOW STRENGTH ASPIRIN 81 MG TUBE (08:08)
[2024-09-13] MEDS: MIRALAX 17 GRAMS TUBE (08:08)
[2024-09-13] MEDS: NSS (PRESERVATIVE FREE) 10 ML IV ×2 (08:08→19:52)
--- NOTE | 2024-09-13 08:12 | W.PN.HOSP.TC ---
Today's Communication/Plan
-
- wean off vent as able
Assessment / Plan
Assessment / Plan
Assessment:
Pt is an 79yoM [facility] HTN, afib/aflutter who presented to [facility] ED via EMS after being intubated in the field for respiratory distress. Admitted to the ICU for further management, currently intubated and sedated.
Plan:
Acute hypoxemia and hypercapnic respiratory failure
- respiratory failure secondary to pneumonia and pulmonary edema
- admitted to ICU for treatment
- intubated in the field secondary to hypoxemia, increased work of breathing, and respiratory distress
- ABG worsening, developing respiratory alkalosis
- wean vent as able
Septic shock w acute organ dfxn secondary to b/l pneumonia
- COVID/flu neg
- CXR and chest CT: bibasilar infiltrates c/w pneumonia
- cont IV abx
- on levophed, wean as able
Acute on chronic diastolic CHF exacerbation
- orthopnea, nocturnal dyspena
- CXR/chest CT: pulm edema, b/l pleural effusions, RV strain
- cont lasix
- proBNP increasing
- echo 4/3: LVEF 60-65%, mod-severe MR, pulm HTN
- echo 5/2: LVEF 68%, mild LVH, mild TR
NSTEMI
- troponins downtrending
- appreciate cardiology input
- cardiac cath was not performed due to pt refusal
Paroxysmal afib/aflutter
- stable
- cont home eliquis, sotalol
CODE STATUS: Full code
DVT prophylaxis: heparin
Diet: Feeding tube
Anticipated Discharge: > 48 hours
Subjective/Interval History
-
Date of Service: September 13, 2024
Pt refused cardiac cath yesterday, clearly indicating that he did not wish to proceed with the cath. Pt started tube feeding overnight. On precedex infusion 0.2 mcg/min.
Objective Data
-
Labs:
Laboratory Results
09/12/24 09/13/24 09/13/24
21:01 03:18 03:19
WBC 11.6 H
Hgb 11.3 L
Hct 31.9 L
Plt Count 345
APTT 76.0 H 82.8 H
HCO3 21.8
Sodium 139
Potassium 3.6
Chloride 103
Carbon Dioxide 21 L
BUN 20
Creatinine 1.2
Glucose 136 H
Calcium 8.9
Total Bilirubin 0.8
AST 24
ALT 16
Alkaline Phosphatase 46
Vital Signs:
Vital Signs
Temp Pulse Resp BP Pulse Ox
99.2 F 74 12 178/62 98
09/13/24 03:40 09/13/24 08:07 09/13/24 06:30 09/13/24 08:07 09/13/24 06:30
I&O
09/12/24 09/13/24 09/14/24
06:59 06:59 06:59
Intake Total 1227.7 / 1255.0 2385.6 / 2385.6
Output Total 3100 / 3100 2320 / 2320
Balance -1872.3 / -1845.0 65.6 / 65.6
Review of Systems
-
Unable to obtain full review of systems at this time due to: Patient Intubation
Physical Exam
-
General: Well Developed, Well Nourished and Intubated
HEENT: Normocephalic, Atraumatic and Moist Mucous Membranes
Respiratory: Clear to Auscultation and Non Labored Respirations
Cardiac: Regular Rhythm and S1/S2
GI: Soft, Nontender, Nondistended and Normal Bowel Sounds
Musculoskeletal: No Clubbing, No Cyanosis and No Edema
Skin: Warm and Dry
Neuro: Awake and Alert
Psych: Calm
[2024-09-13 08:59] LABS: Magnesium 1.9 mg/dl (1.6-2.3)
--- NOTE | 2024-09-13 09:14 | PTCARENOTE ---
Continue inten sivist plan of cares. Follow up sbt. Follow up sedation weaning to continue thru sbt process. Client Technologies Analyst team in and out at bedside. Cardiology team at bedside for am update. Follow along with assessment plan and plan of cares.
Continue drip and weaning tends. Respiratory cares team in and out AT BEDSIDE. Critical care team at bedside for teaching and coaching during sbt. Continue supportive cares.
[2024-09-13] MEDS: CORTROSYN 0.25 MG IV (10:09)
--- NOTE | 2024-09-13 10:27 | PTCARENOTE ---
Continue weaning sedation off. Moving toward cpap ps labs as ordered. Cytologist rounds and follow ongoing trends
[2024-09-13 10:36] LABS: ACTH Stim Cortisol 30 Min 13.4 ug/dl
[2024-09-13 11:50] LABS: ACTH Stim Cortisol 30 Min 33.2 ug/dl
[2024-09-13 12:04] LABS: B.E. 2.6 mmol/L; HCO3 27.2 mmol/L (21-28); O2 Saturation % 99.3 % (94-98); PCO2 41 mmHg (35-48); PO2 129 mmHg (83-108); pH 7.43 (7.35-7.45)
--- NOTE | 2024-09-13 12:38 | PTCARENOTE ---
Extubated patient. Follow up abg and extubation from field support representative team with respiratory cares team at bedside. Family updated thru am process now return to bedside. Continue follow up assessment trends, drips as previous sedation and levophed weaned
off. Heparin at cv protocol with follow up PTT trends as per protocol. Nursing at bedside with family. Continue with line removal as tolerated. Assessment trends ongoing. Continue to follow post extubation protocols.
--- NOTE | 2024-09-13 14:11 | W.PN.UPDATE ---
Update Note
Progress Note Update
I saw and evaluated the patient. I reviewed the resident�s note and agree with findings and plan as documented in the resident�s note except for changes in my documentation.
Seen earlier. Late documentation. Pt has since then been extubated.
79-year-old man with respiratory distress
Was On the vent earlier.
CVS: S1-S2 irregular
Chest: CTA B/L anterolateral
Abdomen: Soft, NT / Bowel sounds present
Extremities: No edema
STUDENT DEVELOPMENT ADVISOR: Able to follow directions and moving all extremities
# Acute hypoxic and hypercapnic respiratory failure
Intubated in the field. Extubated 09/13/24.
Multifactorial respiratory failure secondary to pulmonary edema and pneumonia.
Precedex started and now off
# Bilateral pneumonia with septic shock
Aspiration pneumonia versus other such as community-acquired
COVID and influenza negative
Sputum cultures-negative
Speech evaluation
Continue IV antibiotics-Zosyn
Off pressors
# Kam-YJAQA-tqgxbxna peaked at 9.7-cardiac cath 09/13/2024. On heparin drip currently, on aspirin also
# Acute HFpEF
Echo 09/09/2024-normal biventricular size and systolic function. EF 68%. Mild concentric LVH. Mild TR.
Bilateral pleural effusions
Reportedly weight unchanged
Continue Lasix
Cardiac cath postponed as pt refused on 09/13/24
# Paroxysmal atrial fibrillation/flutter-with ablation in the past-continue sotalol, Eliquis on hold-patient on heparin drip
# Mild hyponatremia-resolved
# Hypokalemia-resolved
# Microscopic hematuria-outpatient follow-up
# Hypertension hold Norvasc
# DVT prophylaxis-Eliquis on hold-patient on heparin drip
# Full code
Discussed with ICU nursing at bed side
PT OT Speech eval post extubation.
It is Unlikely that pt has adrenal insufficiency
Cath timing per Cardiology
Part of this note was created using voice recognition system. Occasional wrong word or��sound alike� substitutions may have inadvertently occurred due to the inherent limitations of voice recognition software. If noted kindly bring it to my
attention for correction.
--- NOTE | 2024-09-13 15:10 | PTOTSP ---
Dysphagia Eval
Patient is at an acute elevated risk for dysphagia given respiratory failure with recent intubation (09/09-09/13) and extubation and deconditioning from acute illness (b/l PNA w/ septic shock, acute HFpEF, non-STEMI). Denied baseline dysphagia.
Recommend:
1. IDDSI Level 6 Soft/Bite Sized, Thin
2. Medications as best tolerated
3. Strategies: assistance with feeding, upright to 90 degrees, small sips/bites, slow rate, reflux precautions, stop if increased coughing noted
4. Dysphagia tx at the acute care level. INSIGHTS MANAGER to f/u and determine if instrumental assessment warranted.
[2024-09-13 15:28] LABS: ACTH Stim Cortisol 60 Min 44.7 ug/dl
--- NOTE | 2024-09-13 16:14 | W.PN.INTV ---
Today's Communication / Plan
Recommendations
- Patient successfully extubated
- BiPAP as needed
- Continue diuresis, potassium replacement 40 mEq p.o.
- Discontinue Seroquel
- ACTH stimulation test, negative
Assessment
-
79-year-old never smoking male with a history of hypertension, atrial fibrillation/flutter/ablation with recent admission with covid infection presented with increasing shortness of breath and respiratory distress felt to have pneumonia and CHF
with CO2 retention requiring intubation-animal control supervisor consulted for ventilator/pneumonia/respiratory failure/critical care management 09/09/2024.
#1. Acute hypercapnic respiratory failure requiring intubation (Intubated 09/09/2024) - suspect multifactorial-CHF, pneumonia
- Did well on SAT/SBT, extubated, 09/13
-Clinical presentation appears to be more related to pulmonary edema.
-Follow-up chest x-ray quite improved, continue Lasix 40 mg twice daily.
#2. Pneumonia with recent hospitalization
-Presentation appears more suggestive of pulmonary edema rather than pneumonia.
-MRSA screen negative. Influenza A,B and COVID-19 negative. All cultures have stayed negative. Will complete 7 days of Zosyn.
#3. Circulatory shock.
- Resolved, patient is off pressors now.
- ?related to CHF, improved
- Morning cortisol was low, ACTH stim test subsequently unremarkable
- Patient rather hypertensive since extubated
#4. Pulmonary edema with heart failure with preserved ejection fraction. EF 68%. Pulmonary artery systolic pressure around 37.
-Continue Lasix 40 mg IV twice daily, cardiology service on case
-Patient was scheduled for a right heart cath and left heart catheter 09/12. 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
- Cardiology service plans to discuss again with patient now that he is extubated
#5. NSTEMI. ? Type I versus type II
-Currently on aspirin, heparin drip.
-Patient declined left heart catheter 09/12. Cardiology service on case
#6. Paroxysmal atrial fibrillation on sotalol and Eliquis
-Currently on heparin drip.
#7. Coffee ground emesis via nasogastric tube
- Resolved, currently on Protonix 40 mg twice daily
Conditions present prior to admission:
Hypertension.
Atrial fibrillation/flutter/ablation 2018.
Right hip replacement 2022.
Appendicitis 1956.
Critical Care time 45 mins -- The patient is admitted for acute critical illness for the treatment of vital organ failure and/or prevention of further life-threatening conditions. Total care includes time spent in review of history, physical exam,
medications, hemodynamic/ventilator parameters, laboratory data, imaging and discussion with house staff, pharmacy, respiratory therapy, director sales and marketing, and nursing.
Diagnostic data:
Chest x-ray 08/10/24-left lower lobe infiltrate consistent with pneumonia
Chest x-ray 09/09/2024-
CT chest 09/09/2024-acute interstitial edema, dense bilateral lower lobe consolidations, small right and minimal left pleural effusion, severe calcified atherosclerotic plaque in the coronary arteries and aorta, mild cardiomegaly
CT head 09/09/2024-no CT evidence for intracranial hemorrhage or transcortical infarct, mild diffuse cerebral and cerebellar volume loss
Echocardiogram 08/11/2024-EF 60-65%, RV pressure volume overload, severe mitral regurgitation, PA systolic 56
Subjective Dataa
Subjective Data
Date of Service:
Date of Service: September 13, 2024
Chief Complaint: School Speech Language Pathologist Follow Up and Vent Management Follow Up
Subjective:
Patient was examined prior to extubation and then examined again after extubation., Awake, alert.
Review of Systems
Genitourinary: Other (All 14 systems reviewed and negative except as stated above in the history of present illness.)
Objective Data
Data Reviewed
Vital Signs / I&O / Oxygen:
Vital Signs
Temp Pulse Resp BP Pulse Ox
99.3 F 66 13 160/66 99
09/13/24 15:54 09/13/24 15:00 09/13/24 15:00 09/13/24 12:41 09/13/24 15:07
Intake and Output
09/12/24 09/13/24 09/14/24
06:59 06:59 06:59
Intake Total 1227.7 / 1255.0 2385.6 / 2413.4 464.3 / 464.3
Output Total 3100 / 3100 2320 / 2370 1535 / 1535
Balance -1872.3 / -1845.0 65.6 / 43.4 -1070.7 / -1070.7
SaO2 [ASV] 97
SaO2 [A/C] 96
SaO2 99
Nasal Cannula flow liters per 4
minute
Physical Exam
General: Comfortable
HEENT: Normocephalic and Anicteric
Cardiovascular: Peripheral Edema (Significantly improved peripheral edema, nearly resolved.)
Respiratory: Clear
GI: Soft, Non Distended, Non Tender and Normal Bowel Sounds
Neurology: Awake and Alert
Skin: Warm and Dry
Labs/Micro/Reports
Lab Data
09/13/24 03:18
09/13/24 03:18
Laboratory Results
09/12/24 09/13/24 09/13/24
21:01 03:18 03:19
APTT 76.0 H 82.8 H
pH 7.50 H
pCO2 28 L
pO2 155 H
HCO3 21.8
O2 Delivery Level 40
09/13/24
11:49
APTT
pH 7.43
pCO2 41
pO2 129 H
HCO3 27.2
O2 Delivery Level
Microbiology
09/09/24 00:55 Blood/Venous Blood Culture - Preliminary
No Growth in 4 days- Final report to follow
09/09/24 00:55 Blood/Venous Blood Culture - Preliminary
No Growth in 4 days- Final report to follow
09/09/24 16:22 Sputum Respiratory Culture - Final
NO GROWTH
09/09/24 16:22 Sputum Gram Stain - Final
[2024-09-13] MEDS: KCL 40 MEQ PO (16:26)
--- NOTE | 2024-09-13 16:47 | PTCARENOTE ---
Assessment continues to improve. Awake, alert, oriented, and cooperative. Continue ongoing pulmonary toileting, cough deep breath exercises. Wean n/c to 2lpm. Update speech evaluation and recommendations. Diet as ordered. Follow up heparin drip
trends and vitals thru shift. Family at bedside, continue with teaching and reinforcement
[2024-09-13] MEDS: CLARITIN 10 MG PO (17:34)
--- NOTE | 2024-09-13 17:43 | PTCARENOTE ---
Completed skin cares, update with [employer] Engineer and pharmacy as noted. Assist with supervision for dinner. Patient working well with assist. Continue to reinforce events, follow up plan of cares, continue to reinforce teaching. Family updated and home
at this assessment.
[2024-09-13] MEDS: BETAPACE 80 MG PO (19:52)
--- NOTE | 2024-09-13 20:00 | PTCARENOTE ---
Patient received in bed, AAOx3, QUICK, voice hoarse. NSR on monitor, afebrile ,blood pressure as documented. Palpable pulses throughout, trace edema to upper lip. Lungs diminished, pulse ox 98% on 2L. Abdomen round with hyperactive bowel sounds.
Thermister almeida draining yellow urine. #18g in LAC, #18 g in left wrist flushed and patent. #18 g in LFA with Heparin gtt infusing as documented. Call zuleta within reach
[2024-09-13] MEDS: BENADRYL 25 MG IV (23:51)
--- NOTE | 2024-09-13 23:55 | PTCARENOTE ---
Patient complaining of back being itchy, notified ZAKIA, order received
[2024-09-14] VITALS (21 sets, daily range): BP systolic 107–178; BP diastolic 52–78; PULSE 76–94; O2SAT 98; BMI 25.5
[2024-09-14] MEDS: CLOBETASOL PROPIONATE 0.05% OINTMENT 1 APPLIC TOPICAL ×3 (01:49→20:42)
[2024-09-14] MEDS: BENADRYL 25 MG IV (04:46)
--- NOTE | 2024-09-14 04:54 | PTCARENOTE ---
Patient placed on room air, prn benadryl given for itch, labs sent. Call zuleta within reach
[2024-09-14 04:57] LABS: Hematocrit 37.1 % (39.0-52.0); Hemoglobin 12.8 g/dL (13.0-18.0); Mean Corp Hgb Conc. 34.5 g/dL (33.0-37.0); Mean Corpuscular Hgb 27.8 pg (27.0-31.0); Mean Corpuscular Volume 80.5 fL (80.0-94.0); Mean Platelet Volume 9.5 fL (7.4-10.4); Platelet Count 357 10^3/uL (130-400); Red Blood Cell Count 4.61 10^6/uL (4.70-6.10); Red Cell Dist. Width 14.6 % (11.5-14.5); White Blood Cell Count 14.3 10^3/uL (4.8-10.8)
[2024-09-14 05:28] LABS: ALT (SGPT) 23 U/L (0-50); AST (SGOT) 31 U/L (17-59); Albumin 3.9 g/dl (3.5-5.0); Alkaline Phosphatase 47 U/L (38-126); Blood Urea Nitrogen 20 mg/dl (9-20); Carbon Dioxide 29 mmol/L (22-30); Chloride 100 mmol/L (98-107); Estimated Creatinine Clearance 70 ml/min; Glucose 108 mg/dl (70-99); Potassium 3.7 mmol/L (3.5-5.1); Sodium 140 mmol/L (135-145); Total Bilirubin 0.7 mg/dl (0.2-1.3); Total Protein 6.5 g/dl (6.3-8.2); eGFR > 60.00
[2024-09-14] MEDS: TYLENOL 650 MG PO ×2 (07:35→17:31)
[2024-09-14] MEDS: BETAPACE 80 MG PO ×2 (07:35→20:40)
[2024-09-14] MEDS: LOW STRENGTH ASPIRIN 81 MG PO (07:36)
[2024-09-14] MEDS: NSS (PRESERVATIVE FREE) 10 ML IV (07:36)
[2024-09-14] MEDS: MIRALAX PO (07:36)
[2024-09-14] MEDS: LASIX 40 MG IV (07:36)
[2024-09-14] MEDS: PROTONIX IV 40 MG IV (07:37)
--- NOTE | 2024-09-14 08:12 | W.PN.HOSP.TC ---
Addendum entered and electronically signed by Shayy Wright MD 09/14/24 14:56:
I saw and evaluated the patient. I reviewed the resident�s note and agree with findings and plan as documented in the resident�s note except for changes in my documentation.
79-year-old man with respiratory distress
Was On the vent earlier.
CVS: S1-S2 regular
Chest: CTA B/L anterolateral
Abdomen: Soft, NT / Bowel sounds present
Extremities: No edema
DIRECTOR OF ONCOLOGY: Nonfocal exam
Skin with maculopapular rash on the shoulder and back
# Acute hypoxic and hypercapnic respiratory failure
Intubated in the field. Extubated 09/13/24.
Multifactorial respiratory failure secondary to pulmonary edema and pneumonia.
Patient is doing really well postextubation
# Bilateral pneumonia with septic shock
Aspiration pneumonia versus other such as community-acquired
COVID and influenza negative
Sputum cultures-negative
Antibiotics stopped secondary to rash
Off pressors
# Maculopapular rash on shoulders and back-Zosyn discontinued. Agree with clobetasol. Patient is also on course of prednisone
# Dtr-RHQTY-ikjkxlnz peaked at 9.7-cardiac cath 09/13/2024. On heparin drip currently, on aspirin also
# Acute HFpEF
Echo 09/09/2024-normal biventricular size and systolic function. EF 68%. Mild concentric LVH. Mild TR.
Bilateral pleural effusions
Reportedly weight unchanged
Continue Lasix
Cardiac cath postponed as pt refused on 09/13/24 likely happen on 09/15/2024
# Hypokalemia-replace
# Paroxysmal atrial fibrillation/flutter-with ablation in the past-continue sotalol, Eliquis on hold-patient on heparin drip
# Mild hyponatremia-resolved
# Hypokalemia-resolved
# Microscopic hematuria-outpatient follow-up
# Hypertension hold Norvasc
# DVT prophylaxis-Eliquis on hold-patient on heparin drip
# Full code
Discussed with ICU nursing at bed side
Cath tomorrow
Time spent over 50 minutes
Part of this note was created using voice recognition system. Occasional wrong word or��sound alike� substitutions may have inadvertently occurred due to the inherent limitations of voice recognition software. If noted kindly bring it to my
attention for correction.
Original Note:
Today's Communication/Plan
-
- downgrade
- possible cath
Assessment / Plan
Assessment / Plan
Assessment:
Pt is an 79yoM [facility] HTN, afib/aflutter who presented to [facility] ED via EMS after being intubated in the field for respiratory distress. Admitted to the ICU for further management, currently intubated and sedated.
Plan:
Acute hypoxemia and hypercapnic respiratory failure
- respiratory failure secondary to pneumonia and pulmonary edema
- admitted to ICU for treatment
- intubated in the field secondary to hypoxemia, increased work of breathing, and respiratory distress
- ABG worsening, developing respiratory alkalosis
- wean vent as able
Septic shock w acute organ dfxn secondary to b/l pneumonia
- COVID/flu neg
- CXR and chest CT: bibasilar infiltrates c/w pneumonia
- cont IV abx
- on levophed, wean as able
Acute on chronic diastolic CHF exacerbation
- orthopnea, nocturnal dyspena
- CXR/chest CT: pulm edema, b/l pleural effusions, RV strain
- cont lasix
- proBNP increasing
- echo 4/3: LVEF 60-65%, mod-severe MR, pulm HTN
- echo 5/2: LVEF 68%, mild LVH, mild TR
NSTEMI
- troponins downtrending
- appreciate cardiology input
- cardiac cath was not performed due to pt refusal
Paroxysmal afib/aflutter
- stable
- cont home eliquis, sotalol
CODE STATUS: Full code
DVT prophylaxis: heparin
Diet: Feeding tube
Anticipated Discharge: 24 - 48 hours
Subjective/Interval History
-
Date of Service: September 14, 2024
Pt successfully extubated. ACTH stim test neg. Pt eating breakfast, tolerating intake well.
Objective Data
-
Labs:
Laboratory Results
09/14/24 09/14/24
04:40 12:00
WBC 14.3 H
Hgb 12.8 L
Hct 37.1 L
Plt Count 357
APTT 71.0 H Pending
Sodium 140
Potassium 3.7
Chloride 100
Carbon Dioxide 29
BUN 20
Creatinine 0.9
Glucose 108 H
Calcium 9.0
Total Bilirubin 0.7
AST 31
ALT 23
Alkaline Phosphatase 47
Vital Signs:
Vital Signs
Temp Pulse Resp BP Pulse Ox
99.3 F 81 20 147/71 97
09/14/24 07:49 09/14/24 08:11 09/14/24 08:11 09/14/24 08:11 09/14/24 08:11
I&O
09/13/24 09/14/24 09/15/24
06:59 06:59 06:59
Intake Total 2385.6 / 2413.4 1220.3 / 1354.3 268 / 268
Output Total 2320 / 2370 3390 / 3465 75 / 75
Balance 65.6 / 43.4 -2169.7 / -2110.7 193 / 193
Review of Systems
-
History Source: Patient
Constitutional: Reports No Symptoms
EENT: Reports No Symptoms Reported
Respiratory: Reports No Symptoms
Cardiac: Reports No Symptoms
Abdomen/GI: Reports No Symptoms
Genitourinary: Reports No Symptoms
Musculoskeletal: Reports No Symptoms
Skin: Reports Rash
Neuro: Reports No Symptoms
Endocrine: Reports No Symptoms
Hematologic / Lymphatic: Reports No Symptoms
Allergy / Immunology: Reports No Symptoms
Physical Exam
-
General: Well Developed, Well Nourished, No Apparent Distress and Comfortable
HEENT: Normocephalic, Atraumatic, Moist Mucous Membranes and Anicteric
Respiratory: Clear to Auscultation
Cardiac: Regular Rhythm and S1/S2
GI: Soft, Nontender, Nondistended and Normal Bowel Sounds
Musculoskeletal: No Clubbing, No Cyanosis and No Edema
Skin: Rash
Neuro: Awake and AO x 3
Psych: Calm
--- NOTE | 2024-09-14 08:15 | PTCARENOTE ---
Updated assessment, vital signs ongoing and as documented. Await cardiology follow up. Update with digital marketing program manager team, await am rounds for updated plan of cares. Speech and pt/ot to follow up.
--- NOTE | 2024-09-14 09:15 | W.PN.CD ---
Today's Communication / Plan
-
Continue heparin and ASA
Start BB and statin
LHC tomorrow
For HFpEF, start Spironolactone and deleon SGLT2i
Hold diuresis and check LVEDP tomorrow
Impression / Plan
-
Background: 79 y/o male with HTN, atrial flutter/fibrillation s/p ablation, moderate/severe mitral regurgitation and recent COVID PNA admitted with acute, ventilator dependent hypoxic respiratory failure and abnormal troponin, possible coffee ground
emesis.
Weigher And Mixer: Dr. Rivera
#Elevated troponin
-Acute. Troponin peaked at 9.8. He is asymptomatic.
-Uncertain if this is NSTEMI precipitation acute HFpEF or if this is non-ischemic myocardial injury from severe HF with perhaps severe underlying CAD.
-Continue ASA and IV heparin which requires intensive monitoring
-Start BB and statin
-Plan for left heart catheterization tomorrow. He is in agreement with plan.
#Acute respiratory failure, resolved
-Likely from pneumonia and acute HFpEF (LVEF 68%)
-Extubated 09/13 and now on room air
-Continue abx per primary team
-Appears euvolemic and weight is down to 182 lb. Hold further diuresis for now. Check LVEDP with [facility] tomorrow.
#Acute on chronic HFpEF
-Hold diuresis as above and check LVEDP
-Ask CM to deleon SGLT2i
-Start Spironolactone 25mg daily
#Coffee ground emesis on 09/09/2024
-Resolved on PPI.
-H/H stable.
-Defer to medicine.
#Mitral regurgitation
-Chronic, improved.
-Echo on 09/09/2024 showed only mild MR, has been mod-severe in past.
#Paroxysmal atrial fibrillation/flutter
-Chronic, currently in NSR.
-Rate/rhythm control with sotalol. QTc 494.
-CHADS2-Vasc = 4 (CHF, HTN, Age x2).
-All anticoagulation initially held for coffee-ground emesis.
-Heparin started for treatment of potential ACS after H/H remained stable and CGE resolved.
-Hold apixaban in light of likely cardiac catheterization during this hospitalization. Currently on IV heparin.
#Hx of COVID-19 infection, early August 2024
Subjective/Interval History:
Extubated yesterday. Feels well today and is up and out of bed, in chair.
Echo 09/09/2024
Normal biventricular size and systolic function without regional wall motion
abnormality. LVEF 68%.
Mild concentric left ventricular hypertrophy.
There is flow acceleration across the LVOT but LVOT gradients were not
interrogated.
Mild tricuspid regurgitation. PASP 37 mmHg.
Compared to prior echocardiogram on 08/11/2024, mitral regurgitation has improved
(previously moderate to severe). PASP has decreased from 56 mmHg to 37 mmHg.
On previous echocardiogram, there is no suggestion of flow acceleration across
the LVOT. Suspect that LVOT acceleration on today's study is due to small
cavity size (LVIDD 4.2 cm from 5.3 cm prior).
Physical Exam
Vital Signs/Labs
Vital Signs
Temp Pulse Resp BP Pulse Ox
99.3 F 81 20 147/71 97
09/14/24 07:49 09/14/24 08:11 09/14/24 08:11 09/14/24 08:11 09/14/24 08:11
09/13/24 09/14/24 09/15/24
06:59 06:59 06:59
Actual Weight 186 lb 11.704 oz 182 lb 15.739 oz
09/14/24 04:40
09/14/24 04:40
PT 14.8 Sec (11.4-14.6) H 09/09/24 07:05
INR 1.13 09/09/24 07:05
APTT 71.0 Sec (23.4-35.0) H 09/14/24 04:40
Magnesium 1.9 mg/dl (1.6-2.3) 09/13/24 03:18
Triglycerides 90 mg/dl (10-149) 09/12/24 02:59
09/09/24 09/13/24
00:53 03:18
Dho-Y-Zpsdemahovw Pept [id number]
Physical Exam
Constitutional: No acute distress and Comfortable
EENT: Other (upper lip swelling)
Cardiovascular: Rhythm & rate is regular, Pedal edema is absent, S1S2 is normal and Murmur/rub/gallop absent
Respiratory: Respiratory effort normal and Lungs clear to auscul.
Neuro/Psych: AO x 3
Data Reviewed
-
Date of Service: September 14, 2024
Medical Decision Making: Reviewed Test Results, Independent Historian Assessment, Test Interpretation and Review of Case with other Provider
EKG: Tracing Personally Visualized and interpreted
Echo: Report Reviewed by me
X-Ray/CT/US/MRI/NUC/PET: Report Reviewed by me
Labs: Labs Reviewed by me
--- NOTE | 2024-09-14 10:31 | PTCARENOTE ---
Updated plan of cares. Am rounds. Cardiology and driver helper teams at bedside. Follow up trends. Update with pharmacy. Plan for transfer and almeida dc. Continue follow up i/o, follow up vs trends. Continue with teaching and emotional support.
Pastoral cares in and out at bedside.
[2024-09-14] MEDS: KCL 40 MEQ PO (10:45)
[2024-09-14] MEDS: ALDACTONE 25 MG PO (10:45)
[2024-09-14] MEDS: DELTASONE 30 MG PO (10:46)
[2024-09-14] MEDS: CLARITIN 10 MG PO (10:46)
--- NOTE | 2024-09-14 12:15 | PTCARENOTE ---
Update with hospitalist team. Await transfer orders and follow up plan. NPO midnight. Plan for cath tomorrow. Update with and family atbedisde. Skin cares and back cares provided. Plan to dc' fofel ambulate room. await speech follow up.
Continue with teaching and supportive cares.
--- NOTE | 2024-09-14 12:41 | PTCARENOTE ---
Speech team at bedside. Will follow reevaluation. updated plan of telemetry cares. Patient resting in chair prep for lunch and almeida to be removed.
--- NOTE | 2024-09-14 13:43 | PTCARENOTE ---
Patient ambulate room one person supervision assist. Ambulate to bathroom. Positive bm and void post almeida removal. Return to chair, tolerates activity. Plan for transfer to telemetry. Continue with pre/cath teaching. Continue chf teaching with
. Continue supportive cares and eemotional support.
[2024-09-14 14:05] LABS: APTT 47.6 Sec (23.4-35.0)
--- NOTE | 2024-09-14 14:43 | PTCARENOTE ---
Assessment unchanged. Family in and out at bedside. Follow up heparin drip and PTT trends as per protocol. Continue follow up input output. Morillo out and has voided at this assessment. Continue with po intake. Safety rounds and follow up hourly
checks ongoing. Patient now in telemetry status.
--- NOTE | 2024-09-14 15:24 | W.PN.INTV ---
Today's Communication / Plan
Recommendations
- Claritin p.o. daily
- Change Protonix IV to p.o. form
- Start prednisone 30 mg daily for 5 days
- Titrate O2 as needed
- Patient can be transferred out of ICU. Precision Lens Grinder Apprentice service will sign off. Please call as needed.
Assessment
-
79-year-old never smoking male with a history of hypertension, atrial fibrillation/flutter/ablation with recent admission with covid infection presented with increasing shortness of breath and respiratory distress felt to have pneumonia and CHF
with CO2 retention requiring intubation-fleet manager/dispatch consulted for ventilator/pneumonia/respiratory failure/critical care management 09/09/2024.
#1. Acute hypercapnic respiratory failure requiring intubation (Intubated 09/09/2024) - suspect multifactorial-CHF, pneumonia
-Did well on SAT/SBT, extubated, 09/13
-Clinical presentation appears to be more related to pulmonary edema.
-Follow-up chest x-ray quite improved, continue Lasix 40 mg twice daily.
#2. Pneumonia with recent hospitalization
-Presentation appears more suggestive of pulmonary edema rather than pneumonia.
-MRSA screen negative. Influenza A,B and COVID-19 negative. All cultures have stayed negative. Zosyn discontinued on 09/13
#3. Circulatory shock.
- Resolved, patient is off pressors now.
- ?related to CHF, improved
- Morning cortisol was low, ACTH stim test subsequently unremarkable
- Patient rather hypertensive since extubated
#4. Pulmonary edema with heart failure with preserved ejection fraction. EF 68%. Pulmonary artery systolic pressure around 37.
-Continue Lasix 40 mg IV twice daily, cardiology service on case
-Patient was scheduled for a right heart cath and left heart catheter 09/12. Patient refused the procedure once he was in the Certified Surgical Technician.
- Plan for coronary angiogram in a.m.
#5. NSTEMI. ? Type I versus type II
-Currently on aspirin, heparin drip.
-Patient declined left heart catheter 09/12. Cardiology service on case, rescheduled for 09/15
#6. Paroxysmal atrial fibrillation on sotalol and Eliquis
-Currently on heparin drip.
#7. Coffee ground emesis via nasogastric tube
- Resolved, currently on Protonix 40 mg twice daily
#8. Maculopapular skin rash. Blanching rash noted mostly on the back, around the neck as well as upper arm.
- Suspect this is drug rash related to Zosyn
- Start Claritin. S/p Benadryl x 2. Initiate prednisone 30 mg daily for next 4 to 5 days
- Avoid penicillin exposure in future
Conditions present prior to admission:
Hypertension.
Atrial fibrillation/flutter/ablation 2018.
Right hip replacement 2022.
Appendicitis 1956.
Critical Care time 52 mins -- The patient is admitted for acute critical illness for the treatment of vital organ failure and/or prevention of further life-threatening conditions. Total care includes time spent in review of history, physical exam,
medications, hemodynamic/ventilator parameters, laboratory data, imaging and discussion with house staff, pharmacy, respiratory therapy, glass mechanic, and nursing.
Diagnostic data:
Chest x-ray 08/10/24-left lower lobe infiltrate consistent with pneumonia
Chest x-ray 09/09/2024-
CT chest 09/09/2024-acute interstitial edema, dense bilateral lower lobe consolidations, small right and minimal left pleural effusion, severe calcified atherosclerotic plaque in the coronary arteries and aorta, mild cardiomegaly
CT head 09/09/2024-no CT evidence for intracranial hemorrhage or transcortical infarct, mild diffuse cerebral and cerebellar volume loss
Echocardiogram 08/11/2024-EF 60-65%, RV pressure volume overload, severe mitral regurgitation, PA systolic 56
Subjective Dataa
Subjective Data
Date of Service:
Date of Service: September 14, 2024
Chief Complaint: Precision Lens Grinder Apprentice Follow Up and Vent Management Follow Up
Subjective:
Patient comfortably sitting in chair, no acute distress
Review of Systems
Genitourinary: Other (All 14 systems reviewed and negative except as stated above in the history of present illness. Only pertinent positive is maculopapular rash.)
Objective Data
Data Reviewed
Vital Signs / I&O / Oxygen:
Vital Signs
Temp Pulse Resp BP Pulse Ox
100.3 F 73 21 107/61 97
09/14/24 11:17 09/14/24 14:00 09/14/24 14:00 09/14/24 12:10 09/14/24 12:10
Intake and Output
09/13/24 09/14/24 09/15/24
06:59 06:59 06:59
Intake Total 2385.6 / 2413.4 1220.3 / 1354.3 1072 / 1072
Output Total 2320 / 2370 3390 / 3465 1225 / 1225
Balance 65.6 / 43.4 -2169.7 / -2110.7 -153 / -153
SaO2 [ASV] 97
SaO2 [A/C] 96
SaO2 97
Nasal Cannula flow liters per 2
minute
Physical Exam
General: Comfortable
HEENT: Normocephalic and Anicteric
Cardiovascular: Peripheral Edema (Significantly improved peripheral edema, nearly resolved.)
Respiratory: Clear
GI: Soft, Non Distended, Non Tender and Normal Bowel Sounds
Neurology: Awake and Alert
Skin: Warm, Dry and Rash (Maculopapular primarily on the back, around the neck as well as in the upper arm on the right side. Pruritic.)
Labs/Micro/Reports
Lab Data
09/14/24 04:40
09/14/24 04:40
Laboratory Results
09/14/24 09/14/24
04:40 13:33
APTT 71.0 H 47.6 H
Microbiology
09/09/24 00:55 Blood/Venous Blood Culture - Final
No Growth - Final Report
09/09/24 00:55 Blood/Venous Blood Culture - Final
No Growth - Final Report
09/09/24 16:22 Sputum Respiratory Culture - Final
NO GROWTH
09/09/24 16:22 Sputum Gram Stain - Final
[2024-09-14] MEDS: LIPITOR 40 MG PO (17:31)
[2024-09-14] MEDS: HEPARIN 25000 UNITS/250 ML IV (17:48)
--- NOTE | 2024-09-14 18:02 | PTCARENOTE ---
Updated report with [facility]. Patient ate 100% of dinner. Transfer via wheel chair. Update family(patient) via phone of transfer room.
[2024-09-14] MEDS: TOPROL XL 25 MG PO (20:40)
[2024-09-14 21:26] LABS: APTT 74.2 Sec (23.4-35.0)
[2024-09-15] VITALS (13 sets, daily range): BP systolic 112–160; BP diastolic 55–80; BMI 25.9
[2024-09-15 03:46] LABS: Hematocrit 35.7 % (39.0-52.0); Hemoglobin 12.4 g/dL (13.0-18.0); Mean Corp Hgb Conc. 34.7 g/dL (33.0-37.0); Mean Corpuscular Hgb 27.4 pg (27.0-31.0); Mean Corpuscular Volume 78.8 fL (80.0-94.0); Mean Platelet Volume 9.6 fL (7.4-10.4); Platelet Count 333 10^3/uL (130-400); Red Blood Cell Count 4.53 10^6/uL (4.70-6.10); Red Cell Dist. Width 14.5 % (11.5-14.5); White Blood Cell Count 15.2 10^3/uL (4.8-10.8)
[2024-09-15 04:11] LABS: ALT (SGPT) 35 U/L (0-50); AST (SGOT) 34 U/L (17-59); Albumin 3.8 g/dl (3.5-5.0); Alkaline Phosphatase 47 U/L (38-126); Blood Urea Nitrogen 21 mg/dl (9-20); Calcium 9.2 mg/dl (8.4-10.2); Carbon Dioxide 28 mmol/L (22-30); Chloride 98 mmol/L (98-107); Estimated Creatinine Clearance 78 ml/min; Glucose 117 mg/dl (70-99); Potassium 4.1 mmol/L (3.5-5.1); Sodium 137 mmol/L (135-145); Total Bilirubin 0.6 mg/dl (0.2-1.3); Total Protein 6.4 g/dl (6.3-8.2); Triglycerides 115 mg/dl (10-149); eGFR > 60.00
[2024-09-15 04:36] LABS: APTT 91.8 Sec (23.4-35.0)
--- NOTE | 2024-09-15 08:13 | W.PN.HOSP.TC ---
Addendum entered and electronically signed by Shayy Wright MD 09/15/24 15:58:
Seen earlier today. Late documentation.
I saw and evaluated the patient. I reviewed the resident�s note and agree with findings and plan as documented in the resident�s note except for changes in my documentation.
79-year-old man with respiratory distress
CVS: S1-S2 regular
Chest: CTA B/L anterolateral
Abdomen: Soft, NT / Bowel sounds present
Extremities: No edema
ASSISTANT PRODUCTION MANAGER: Nonfocal exam
Skin with maculopapular rash on the inguinal area, posterior legs, anterior chest. Back looks much better today.
# Acute hypoxic and hypercapnic respiratory failure
Intubated in the field. Extubated 09/13/24.
Multifactorial respiratory failure secondary to pulmonary edema and pneumonia.
Patient is doing really well postextubation
# Bilateral pneumonia with septic shock
Aspiration pneumonia versus other such as community-acquired
COVID and influenza negative
Sputum cultures-negative
Antibiotics stopped secondary to rash
# Maculopapular rash on shoulders and back-Zosyn discontinued. Agree with clobetasol. Patient is also on course of prednisone
# Mun-CHFSQ-kuppubgg peaked at 9.7-cardiac cath 09/13/2024. On heparin drip currently, on aspirin also
# Acute HFpEF
Echo 09/09/2024-normal biventricular size and systolic function. EF 68%. Mild concentric LVH. Mild TR.
Bilateral pleural effusions
Reportedly weight unchanged
Continue Lasix
Cardiac cath postponed as pt refused on 09/13/24 likely happen on 09/15/2024
# Paroxysmal atrial fibrillation/flutter-with ablation in the past-continue sotalol, Eliquis on hold-patient on heparin drip
# Mild hyponatremia-resolved
# Hypokalemia-resolved
# Microscopic hematuria-outpatient follow-up
# Hypertension hold Norvasc
# DVT prophylaxis-Eliquis on hold-patient on heparin drip
# Full code
Discussed with nursing at bed side
Cath
Part of this note was created using voice recognition system. Occasional wrong word or��sound alike� substitutions may have inadvertently occurred due to the inherent limitations of voice recognition software. If noted kindly bring it to my
attention for correction.
Original Note:
Today's Communication/Plan
-
- cath today
Assessment / Plan
Assessment / Plan
Assessment:
Pt is an 79yo[address] [facility] HTN, afib/aflutter who presented to [facility] ED via EMS after being intubated in the field for respiratory distress. Admitted to the ICU for further management, currently intubated and sedated.
Plan:
Acute hypoxemia and hypercapnic respiratory failure
- respiratory failure secondary to pneumonia and pulmonary edema
- admitted to ICU for treatment
- intubated in the field secondary to hypoxemia, increased work of breathing, and respiratory distress
- weaned from vent
Septic shock w acute organ dfxn secondary to b/l pneumonia
- COVID/flu neg
- CXR and chest CT: bibasilar infiltrates c/w pneumonia
- cont IV abx
- weaned from levophed
Acute on chronic diastolic CHF exacerbation
- orthopnea, nocturnal dyspena
- CXR/chest CT: pulm edema, b/l pleural effusions, RV strain
- cont lasix
- proBNP increasing
- echo 08/11: LVEF 60-65%, mod-severe MR, pulm HTN
- echo /: LVEF 68%, mild LVH, mild TR
NSTEMI
- troponins downtrending
- appreciate cardiology input
- cardiac cath today
Paroxysmal afib/aflutter
- stable
- cont home eliquis, sotalol
CODE STATUS: Full code
DVT prophylaxis: heparin
Diet: sodium 2g
Anticipated Discharge: 24 - 48 hours
Subjective/Interval History
-
Date of Service: September 15, 2024
No acute overnight events.
Objective Data
-
Labs:
Laboratory Results
09/14/24 09/15/24
20:51 03:34
WBC 15.2 H
Hgb 12.4 L
Hct 35.7 L
Plt Count 333
APTT 74.2 H 91.8 H
Sodium 137
Potassium 4.1
Chloride 98
Carbon Dioxide 28
BUN 21 H
Creatinine 0.8
Glucose 117 H
Calcium 9.2
Total Bilirubin 0.6
AST 34
ALT 35
Alkaline Phosphatase 47
Vital Signs:
Vital Signs
Temp Pulse Resp BP Pulse Ox
98.5 F 80 18 157/80 98
09/15/24 03:14 09/15/24 03:14 09/15/24 03:14 09/15/24 03:14 09/15/24 03:14
I&O
09/14/24 09/15/24 09/16/24
06:59 06:59 06:59
Intake Total 1220.3 / 1354.3 1512 / 1512
Output Total 3390 / 3465 1225 / 1225
Balance -2169.7 / -2110.7 287 / 287
Review of Systems
-
History Source: Patient
Constitutional: Reports No Symptoms
EENT: Reports No Symptoms Reported
Respiratory: Reports No Symptoms
Cardiac: Reports No Symptoms
Abdomen/GI: Reports No Symptoms
Genitourinary: Reports No Symptoms
Musculoskeletal: Reports No Symptoms
Skin: Reports No Symptoms
Neuro: Reports No Symptoms
Physical Exam
-
General: Well Developed and Well Nourished
HEENT: Normocephalic, Atraumatic, Moist Mucous Membranes and Anicteric
Respiratory: Clear to Auscultation and Non Labored Respirations
Cardiac: Regular Rhythm and S1/S2
GI: Soft, Nontender, Nondistended and Normal Bowel Sounds
Musculoskeletal: No Clubbing, No Cyanosis and No Edema
Skin: Warm and Dry; Negative Rash
Neuro: Awake, AO x 3, No Motor Deficits and Nonfocal/Grossly Intact
Psych: Calm
[2024-09-15] MEDS: ALDACTONE 25 MG PO (08:34)
[2024-09-15] MEDS: BETAPACE 80 MG PO ×2 (08:34→20:03)
[2024-09-15] MEDS: LOW STRENGTH ASPIRIN 81 MG PO (08:34)
[2024-09-15] MEDS: MIRALAX PO (08:34)
[2024-09-15] MEDS: CLARITIN 10 MG PO (08:34)
[2024-09-15] MEDS: DELTASONE 30 MG PO (08:34)
[2024-09-15] MEDS: PROTONIX 40 MG PO (08:34)
[2024-09-15] MEDS: TOPROL XL 25 MG PO ×2 (08:34→20:03)
[2024-09-15] MEDS: CLOBETASOL PROPIONATE 0.05% OINTMENT 1 APPLIC TOPICAL ×2 (08:35→20:04)
[2024-09-15] MEDS: HEPARIN 25000 UNITS/250 ML IV (08:39)
[2024-09-15 09:02] LABS: Adrenocorticotropic Hormone 8.5 pg/mL (7.2-63.3)
--- NOTE | 2024-09-15 10:36 | CM ---
Patient eating more, almeida removed,extubated 5/. PT indicating SNF at discharge. Will talk to family about referrals. Received consult for checks on following medications: Farxiaga and Jardiance once daily 10 mg. Placed a call to [facility]
and spoke with a pharmacist named, Lynne who reviewed both and both medications would be 47 dollars.
Plan: Case management will continue to follow and assist with discharge planning. SNF when stable, will f/u for SNF selections.
--- NOTE | 2024-09-15 17:20 | ITS.CL.PN ---
[facility] - Procedure Note
Procedure
Procedure Note:
CARDIAC CATHETERIZATION REPORT
Date of Procedure: 09/15/2024
Referring: Dr. Tahir Farmer MD, PhD
Indication: NSTEMI
PROCEDURE(S)
1. left heart catheterization
2. coronary angiography
ACCESS: 6F right radial artery (closure: radial band)
CATHETERS
1. 6F JR4
2. 6F JL4
MODERATE SEDATION: 25 minutes of moderate sedation was utilized. An independent medical billing supervisor was present to assist with and help manage the patient's level of consciousness and physiologic status.
HEMODYNAMIC DATA
LV 141/9 (EDP 22) mmHg
AO 144/73 (mean 101) mmHg
CORONARY ANGIOGRAPHY
Dominance: Right
LM: Large with minimal disease
LAD: Large vessel giving rise to a moderate caliber branching diagonal. There is a 90% stenosis in the proximal LAD before the takeoff of D1 and a WAD PRINTING MACHINE OPERATOR in the mid LAD after the takeoff of the D1. The WAD PRINTING MACHINE OPERATOR appears to have a very small proximal cap but
is effectively a flush occlusion at S2. The LAD fills retrograde via collaterals from the ramus branch. The WAD PRINTING MACHINE OPERATOR segment appears to have minimal calcium and is straight but may be long (JCTO score 2).
Ramus: Large vessel supplying left to left collaterals to the apical LAD. There is mild disease in the proximal portion of the vessel.
LCx: Small vessel giving rise to a small OM1 and small LPL branch. There is a focal moderate stenosis just before the takeoff of OM1 and otherwise mild luminal irregularities.
RCA: Moderate caliber vessel giving rise to a small RPDA and several small RPL branches. There is diffuse mild to moderate disease and a focal 70% stenosis in the distal RCA.
RADIATION: dose 492.05 mGy; DAP 49.7181 Gy*cm2; fluoroscopy time 2.9 min
CONCLUSIONS
1. Coronary artery disease as described in a right dominant system
2. Moderately elevated LV filling pressure and no aortic stenosis
RECOMMENDATIONS
1. Aggressive secondary prevention of coronary artery disease
2. The patient's presentation does not seem consistent with a acute plaque rupture PA given the modestly elevated troponin relative to the territory involved, the lack of anginal symptoms, and the normal EF without regional wall motion
abnormalities. Should the patient develop angina in the future, percutaneous revascularization of the LAD would be feasible, though the LAD WAD PRINTING MACHINE OPERATOR may be challenging and ADR or retrograde approach.
Copy to: Dr. Sharee Rivera MD (mgmt analyst); Dr. Raiza Virgen MD (PCP)
Signed: Tristian Christesnen MD, PhD
[2024-09-15] MEDS: LIPITOR 40 MG PO (18:03)
[2024-09-15] MEDS: ELIQUIS 5 MG PO (22:52)
--- NOTE | 2024-09-16 00:30 | PTCARENOTE ---
During patient rounds, patient was found with IV on bedside table. Multiple attempts were made to educate the patient on the importance of having an IV. The patient continues to refuse an IV. TT ELSI Andino notified.
[2024-09-16 01:00] VITALS: BP 154/75
--- NOTE | 2024-09-16 01:00 | PTCARENOTE ---
ELSI Andino at bedside. Patient continues to refuse an IV at this time. Patient was verbally educated on the importance of having the IV in place, however patient continues to refuse. Will continue to educate and monitor
[2024-09-16 03:26] VITALS: BP 137/57
[2024-09-16 06:00] VITALS: BMI 25.6
[2024-09-16 07:15] VITALS: BP 168/70
[2024-09-16 08:03] LABS: ALT (SGPT) 40 U/L (0-50); AST (SGOT) 35 U/L (17-59); Alkaline Phosphatase 48 U/L (38-126); Blood Urea Nitrogen 19 mg/dl (9-20); Calcium 9.4 mg/dl (8.4-10.2); Carbon Dioxide 31 mmol/L (22-30); Chloride 97 mmol/L (98-107); Estimated Creatinine Clearance 70 ml/min; Glucose 115 mg/dl (70-99); Potassium 4.5 mmol/L (3.5-5.1); Sodium 136 mmol/L (135-145); Total Bilirubin 0.7 mg/dl (0.2-1.3); Total Protein 6.4 g/dl (6.3-8.2); eGFR > 60.00
[2024-09-16] MEDS: DELTASONE 30 MG PO (10:32)
[2024-09-16] MEDS: CLARITIN 10 MG PO (10:33)
[2024-09-16] MEDS: BETAPACE 80 MG PO (10:33)
[2024-09-16] MEDS: PROTONIX 40 MG PO (10:33)
[2024-09-16] MEDS: ALDACTONE 25 MG PO (10:34)
[2024-09-16] MEDS: CLOBETASOL PROPIONATE 0.05% OINTMENT 1 APPLIC TOPICAL (10:34)
[2024-09-16] MEDS: LOW STRENGTH ASPIRIN 81 MG PO (10:34)
[2024-09-16] MEDS: ELIQUIS 5 MG PO (10:34)
[2024-09-16] MEDS: MIRALAX 17 GRAMS PO (10:35)
[2024-09-16] MEDS: TOPROL XL 25 MG PO (10:38)
[2024-09-16 11:08] VITALS: BP 157/69
[2024-09-16 12:13] VITALS: BP 161/70; PULSE 69
--- NOTE | 2024-09-16 12:34 | W.PN.CD ---
Today's Communication / Plan
-
Patient discharge instructions:
Please weigh yourself tomorrow morning. This will be your new dry weight. You should aim to stay within +/- 2 pounds of this.
If you gain more than 3 pounds overnight or 5 pounds in 1 week, you should take a dose of 40 mg Lasix until you return to your normal weight.
New medications: Atorvastatin 40 mg daily, aspirin 81 mg daily, spironolactone 25 mg daily, Farxiga 10 mg daily, metoprolol 25 mg twice daily
You will need to get blood work in 1 week given all the new medication changes. Labs have been ordered and sent to [facility] electronically.
Impression / Plan
-
Background: 79 y/o male with HTN, atrial flutter/fibrillation s/p ablation, moderate/severe mitral regurgitation and recent COVID PNA admitted with acute, ventilator dependent hypoxic respiratory failure and abnormal troponin consistent with type II
NSTEMI and HFpEF exacerbation. Now being discharged with plan for medical management.
Lasting Room Supervisor: Dr. Rivera
#Type II NSTEMI
-Acute. Troponin peaked at 9.8. He is asymptomatic.
-[facility] 09/15/2024: 90% proximal LAD, SPIKE DRIVER mid LAD with collaterals, 70% distal RCA. Nothing acute.
-Continue ASA for 6-12 months for NSTEMI, then return to Eliquis monotherapy
-Continue BB and statin. Goal LDL <70
#Acute on chronic HFpEF
-TTE below
-Lasix 40mg prn on discharge for weight gain >3lb overnight or 5lb in one week
-Continue Spironolactone 25mg daily (new this admission)
-Start Farxiga 10mg daily
-BMP in 1 week (ordered in eCW)
#Acute respiratory failure, resolved
-Likely from pneumonia and acute HFpEF (LVEF 68%)
-Extubated 09/13 and now on room air
-Completed abx
-Appears euvolemic. Holding diuresis as above.
#Coffee ground emesis on 09/09/2024
-Resolved on PPI.
-H/H stable.
-Defer to medicine.
#Mitral regurgitation
-Chronic, improved.
-Echo on 09/09/2024 showed only mild MR, has been mod-severe in past.
#Paroxysmal atrial fibrillation/flutter
-Chronic, currently in NSR.
-Rate/rhythm control with sotalol. QTc 494.
-CHADS2-Vasc = 4 (CHF, HTN, Age x2).
-All anticoagulation initially held for coffee-ground emesis.
-Continue Eliquis
#Hx of COVID-19 infection, early August 2024
Subjective/Interval History:
He feels well and is ready to go home
Echo 09/09/2024
Normal biventricular size and systolic function without regional wall motion
abnormality. LVEF 68%.
Mild concentric left ventricular hypertrophy.
There is flow acceleration across the LVOT but LVOT gradients were not
interrogated.
Mild tricuspid regurgitation. PASP 37 mmHg.
Compared to prior echocardiogram on 08/11/2024, mitral regurgitation has improved
(previously moderate to severe). PASP has decreased from 56 mmHg to 37 mmHg.
On previous echocardiogram, there is no suggestion of flow acceleration across
the LVOT. Suspect that LVOT acceleration on today's study is due to small
cavity size (LVIDD 4.2 cm from 5.3 cm prior).
Physical Exam
Vital Signs/Labs
Vital Signs
Temp Pulse Resp BP Pulse Ox
97.8 F 74 16 157/69 97
09/16/24 11:08 09/16/24 11:08 09/16/24 11:08 09/16/24 11:08 09/16/24 11:08
09/15/24 09/16/24 09/17/24
06:59 06:59 06:59
Actual Weight 185 lb 6.4 oz 183 lb 6 oz
09/15/24 03:34
09/16/24 06:26
PT 14.8 Sec (11.4-14.6) H 09/09/24 07:05
INR 1.13 09/09/24 07:05
APTT 91.8 Sec (23.4-35.0) H 09/15/24 03:34
Magnesium 1.9 mg/dl (1.6-2.3) 09/13/24 03:18
Triglycerides 115 mg/dl (10-149) 09/15/24 03:34
09/09/24 09/13/24
00:53 03:18
Uld-Q-Rukycuwfore Pept [id number]
Physical Exam
Constitutional: No acute distress and Comfortable
Cardiovascular: Rhythm & rate is regular, Pedal edema is absent, S1S2 is normal and Murmur/rub/gallop absent
Respiratory: Respiratory effort normal and Lungs clear to auscul.
Neuro/Psych: AO x 3
Data Reviewed
-
Date of Service: September 16, 2024
Medical Decision Making: Reviewed Test Results, Independent Historian Assessment, Test Interpretation and Review of Case with other Provider
EKG: Tracing Personally Visualized and interpreted
Echo: Report Reviewed by me
Labs: Labs Reviewed by me
--- NOTE | 2024-09-16 13:22 | W.PN.HOSP.TC ---
Today's Communication/Plan
-
Discharge
Assessment / Plan
Assessment / Plan
79-year-old man with respiratory distress
CVS: S1-S2 regular
Chest: CTA B/L anterolateral
Abdomen: Soft, NT / Bowel sounds present
Extremities: No edema
CONFIGURATION MANAGEMENT CONSULTANT: Nonfocal exam
Skin with maculopapular rash on the inguinal area, posterior legs look much better, anterior chest look much better. Back looks much better today as well
# Acute hypoxic and hypercapnic respiratory failure
Intubated in the field. Extubated 09/13/24.
Multifactorial respiratory failure secondary to pulmonary edema and pneumonia.
Has been off of oxygen
# Bilateral pneumonia with septic shock
Aspiration pneumonia versus other such as community-acquired
COVID and influenza negative
Sputum cultures-negative
Antibiotics stopped secondary to rash
# Maculopapular rash on shoulders and back-Zosyn discontinued. Agree with clobetasol. Patient is also on course of prednisone finish the course. Rash looks much better on the back and chest and posterior legs. He still has some in the inner
thighs
# Qms-VXFLG-ammzncrp peaked at 9.7-cardiac cath 09/13/2024.
Left heart cath 5 825-90% proximal LAD lesion, chronic total occlusion of mid LAD with collaterals, 70% distal RCA occlusion no acute disease. Continue aspirin for 1 year and then Eliquis monotherapy, continue beta-dale and statin, Farxiga
added, Aldactone started this admission to be continued, Lasix 40 mg as needed for weight gain
# Acute HFpEF
Echo 09/09/2024-normal biventricular size and systolic function. EF 68%. Mild concentric LVH. Mild TR.
Bilateral pleural effusions
Reportedly weight unchanged
Continue Lasix as needed for weight gain
Cardiac cath postponed as pt refused on 09/13/24 likely happen on 09/15/2024
# Paroxysmal atrial fibrillation/flutter-with ablation in the past-continue sotalol, Eliquis
# Mild hyponatremia-resolved
# Hypokalemia-resolved
# Microscopic hematuria-outpatient follow-up
# Hypertension hold Norvasc
# DVT prophylaxis-Eliquis
# Full code
Discussed with nursing at bed side
D/W Cardiology
D/W
D/W OT
D/W case management
Part of this note was created using voice recognition system. Occasional wrong word or��sound alike� substitutions may have inadvertently occurred due to the inherent limitations of voice recognition software. If noted kindly bring it to my
attention for correction.
More than 30 minutes spent in discharge including
Final examination of the patient
Summarizing hospital stay
Instructions for continuing care to all relevant caregivers
Preparation of discharge records, prescriptions, and referral forms
Total time spent (in minutes): 38 min
Anticipated Discharge: Today
Subjective/Interval History
-
Date of Service: September 16, 2024
Objective Data
-
Labs:
Laboratory Results
09/16/24
06:26
Sodium 136
Potassium 4.5
Chloride 97 L
Carbon Dioxide 31 H
BUN 19
Creatinine 0.9
Glucose 115 H
Calcium 9.4
Total Bilirubin 0.7
AST 35
ALT 40
Alkaline Phosphatase 48
Vital Signs:
Vital Signs
Temp Pulse Resp BP Pulse Ox
97.8 F 74 16 157/69 97
09/16/24 11:08 09/16/24 11:08 09/16/24 11:08 09/16/24 11:08 09/16/24 11:08
I&O
09/15/24 09/16/24 09/17/24
06:59 06:59 06:59
Intake Total 1512 / 1512 990 / 990
Output Total 1225 / 1225
Balance 287 / 287 990 / 990
--- NOTE | 2024-09-16 13:43 | W.DS.TRANS ---
Addendum entered and electronically signed by Shayy Wright MD 09/16/24 16:50:
Dictation- [id number]
Original Note:
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
-
Discharge Instructions:
Discharge Diagnosis/Procedures Non-STEMI
Heart failure
Ventilator dependent respiratory failure
Mitral regurgitation
Atrial fibrillation
Allergy to Zosyn with a rash
Hypertension
Diet 2 Gram Sodium,Restrict fluids to 64 oz
Driving Restrictions As prior to admission
Other Services VN,PT
Specialty Instructions Weigh Daily
Instructions:
Stand-Alone Forms: DC Instructions- Cath/EP Lab
Changes to Home Medications: Yes
Discharge Medications:
DC Medications w/original date entered in [employer]
apixaban 5 mg tablet (Eliquis) 5 mg PO BID Blood Clot Prevention/Tx 02/13/22
magnesium oxide 400 mg PO DAILY Supplement 02/13/22
sotalol 80 mg tablet 80 mg PO BID Arrhythmia 02/13/22
ascorbic acid (vitamin C) 500 mg tablet (Vitamin C) 500 mg PO DAILY Supplement 08/10/24
cholecalciferol (vitamin D3) 25 mcg (1,000 unit) tablet (Vitamin D3) 25 mcg PO DAILY Supplement 08/10/24
glucosamine sulfate 500 mg tablet (Glucosamine) 500 mg PO DAILY Supplement 08/10/24
aspirin 81 mg chewable tablet 81 mg PO DAILY Blood clot prevention/tx #0 tabs 09/16/24
atorvastatin 40 mg tablet 40 mg PO QPM Heart disease/condition #30 tabs 09/16/24
clobetasol 0.05 % topical ointment 1 applic topical BID Skin issues #30 grams 09/16/24
dapagliflozin propanediol 10 mg tablet 10 mg PO DAILY Diabetes #30 tabs 09/16/24
loratadine 10 mg tablet 10 mg PO DAILY Allergies #0 tabs 09/16/24
metoprolol succinate 25 mg tablet,extended release 24 hr 25 mg PO BID Heart disease/condition #30 tabs 09/16/24
pantoprazole 40 mg tablet,delayed release 40 mg PO DAILY Gastrointestinal issue #30 tabs 09/16/24
polyethylene glycol 3350 17 gram oral powder packet 17 g PO DAILY Constipation #0 ea 09/16/24
prednisone 10 mg tablet 30 mg (3 x 10 mg) PO DAILY Allergies #3 tabs 09/16/24
spironolactone 25 mg tablet 25 mg PO DAILY Heart Failure #30 tabs 09/16/24
Home Medication Changes
Spironolactone, prednisone, MiraLAX, Protonix, metoprolol, loratadine, dapagliflozin, clobetasol, atorvastatin-new
Amlodipine stopped
Pending Results: No
[2024-09-16] MEDS: FARXIGA 10 MG PO (13:55)
[2024-09-16 15:01] VITALS: BP 147/65
--- NOTE | 2024-09-16 15:11 | VNURNOTE ---
Home Health Liaison met with patient and spouse at bedside to discuss [facility] nurse/therapy, visits, schedule and homebound status. Patient and spouse are agreeable and understand that visits at home will be 2-3 x per week to assess and teach medical
management. He confirms he has a scale at home. Both are aware that [facility] will contact them for start of care in 1-2 days after discharge from .
[facility] referral completed in [facility].
--- NOTE | 2024-09-16 16:11 | CM ---
entered order for discahrge.
PT OT indicated Home w VN
Offered VN pt requested [facility] Kylee Dominguez Liaison notified.
and dgt to drive him home.
IMM reviewed agreed with dc and signed IMM on chart.
PLAN Home with [facility]
== END 2024-09-16 15:35 | disposition home health service (06) | DRG 870 ==
LOC: 4 EAST ACU 04:48
PROVIDERS: General Practice; Internal Medicine; Internal Medicine Cardiovascular Disease; Internal Medicine Critical Care Medicine; Nurse Practitioner Family; Student in an Organized Health Care Education/Training Program; ADMITTING PHYSICIAN Hospitalist; ATTENDING PHYSICIAN Hospitalist; CONSULT PHYSICIAN Internal Medicine Cardiovascular Disease; CONSULT PHYSICIAN Internal Medicine Critical Care Medicine; EMERGENCY PHYSICIAN Student in an Organized Health Care Education/Training Program; FAMILY PHYSICIAN Family Medicine; OTHER PHYSICIAN Internal Medicine Cardiovascular Disease
PROC: 5A1955Z Respiratory Ventilation, Greater than 96 Consecutive Hours (ICD-10-PCS; 2024-09-09)
PROC: B2111ZZ Fluoroscopy of Multiple Coronary Arteries using Low Osmolar Contrast (ICD-10-PCS; 2024-09-15)
PROC: 4A023N7 Measurement of Cardiac Sampling and Pressure, Left Heart, Percutaneous Approach (ICD-10-PCS; 2024-09-15)
DX: A41.9 Sepsis, unspecified organism (principal); I21.4 Non-ST elevation (NSTEMI) myocardial infarction; I50.33 Acute on chronic diastolic (congestive) heart failure; J96.01 Acute respiratory failure with hypoxia; J96.02 Acute respiratory failure with hypercapnia; J15.9 Unspecified bacterial pneumonia; R65.21 Severe sepsis with septic shock; Z99.11 Dependence on respirator [ventilator] status; I48.92 Unspecified atrial flutter; K92.0 Hematemesis; E87.1 Hypo-osmolality and hyponatremia; I34.0 Nonrheumatic mitral (valve) insufficiency; I48.0 Paroxysmal atrial fibrillation; I11.0 Hypertensive heart disease with heart failure; I25.10 Atherosclerotic heart disease of native coronary artery without angina pectoris; L27.1 Localized skin eruption due to drugs and medicaments taken internally; T36.0X5A Adverse effect of penicillins, initial encounter; I27.20 Pulmonary hypertension, unspecified; R73.9 Hyperglycemia, unspecified; Z11.52 Encounter for screening for COVID-19; E87.6 Hypokalemia; R31.29 Other microscopic hematuria; Z86.16 Personal history of COVID-19; Z87.01 Personal history of pneumonia (recurrent)
CPT/HCPCS: 93308; 51702; 70450; 71045; 71275; 80048; 80053; 80076; 81003; 81015; 82024; 82533; 82805; 82962; 83605; 83735; 83880; 84100; 84478; 84484; 85014; 85018; 85025; 85027; 85610; 85730; 87040; 87070; 87205; 87502; 87641; 87811; 92526; 92610; 92960; 93005; 93321; 93325; 93458; 94002; 94003; 96365; 96366; 96367; 97116; 97163; 97167; 97535; 99152; 99153; 99291; C1894; Q9967

== ENCOUNTER → 2024-10-14 09:35 | Outpatient (REF) | payer MEDICARE, SELFPAY | LOC: HWRAD 09:35 | PROVIDERS: ATTENDING PHYSICIAN Family Medicine; REFERRING PHYSICIAN Nurse Practitioner | DX: J18.9 Pneumonia, unspecified organism (principal); M25.641 Stiffness of right hand, not elsewhere classified; M25.642 Stiffness of left hand, not elsewhere classified | CPT/HCPCS: 71046; 73130 ==

== ENCOUNTER 2025-04-19 13:52 | Emergency (ER) | payer MEDICARE, SELFPAY ==
[2025-04-19 13:55] VITALS: BP 204/103; BMI 29.6
[2025-04-19 14:00] VITALS: BP 198/97
--- NOTE | 2025-04-19 14:16 | ED.GENMED ---
History of Present Illness
General
Chief Complaint: Blood Pressure Problem
Source: patient
Exam Limitations: none
Time Seen by Provider: 04/19/25 14:06
Nursing documentation reviewed up to this point in time: agreed with
History of Present Illness
History of Present Illness:
Patient is an 79-year-old male with history atrial flutter on Eliquis, hypertension who presents to the emergency department with elevated blood pressure. Patient states that he was at home earlier today when he started to feel 'off'. He is unable
to describe the sensation any further. At that time, he took his blood pressure and found it to be elevated with a systolic in the low 200s. He called 911 for transportation to the emergency department.
By the time my evaluation, patient states he feels better.
He denies any point experiencing headache, chest pain, shortness of breath, numbness/tingling or weakness in extremities. He denies any visual changes, changes in mental status, or dizziness. He denies any back pain. He denies any recent fever,
chills, or viral symptoms. He thinks he may be dehydrated.
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 Patient was taken off his amlodipine this past summer during a hospitalization. He currently takes metoprolol 25 mg twice daily and spironolactone 25 mg in the morning.
Past History
Past History
ED Past Medical History: Arrthythmia (Atrial flutter), HTN and Valvular disease
ED Past Surgical History: Appendectomy
Patient has exhibited threatening behavior?: No
Social History
Tobacco: Non-smoker
Review of Systems
Review of Systems
Allergies reviewed?: Yes
All Other Systems: ROS reviewed and negative except as documented in HPI and ROS
Phy Exam
Physical Exam
Physical Exam:
Vitals: Hypertensive, otherwise vital signs stable. Afebrile
General: Patient is very well-appearing, in no distress
Skin: Warm and dry, no rashes or lesions
Head: Normocephalic, atraumatic
Eyes: Sclera nonicteric. EOMs intact. No nystagmus.
Throat: Protecting airway
Neck: Normal ROM, no cervical spine tenderness, no meningismus
Cardiac: Regular rate and rhythm, no murmurs.
Pulm: Normal respiratory effort. Lungs clear bilaterally
Abdomen: No abdominal tenderness.
Extremities: No evidence of cyanosis or edema. Strength 5/5 in bilateral upper and lower extremities
Neuro: AAOx3. CN II-XII grossly intact. No facial droop or asymmetry. Fluid speech. No focal neurologic deficits.
Psychiatric: Normal affect.
Course
Orders/Labs/Results
Orders:
Orders
04/19/25 14:29
Electrocardiogram (*1) Urgent
Reason for Study: Hypertension, Benign
EKG- Treatment ONCE
04/19/25 14:33
Complete Blood Count/With Diff Urgent
Comprehensive Metabolic Panel Urgent
Abnormal Lab Results
04/19/25
14:33
MCHC 32.0 L g/dL
(33.0-37.0)
RDW 15.5 H %
(11.5-14.5)
Absolute Neuts (auto) 7.0 H 10^3/uL
(1.4-6.5)
Absolute Monos (auto) 0.8 H 10^3/uL
(0.1-0.6)
Lymphocytes % 15.8 L %
(20.5-51.1)
Sodium 134 L mmol/L
(135-145)
BUN 22 H mg/dl
(9-20)
Glucose 159 H mg/dl
(70-99)
ALT 54 H U/L
(0-50)
04/19/25 14:33
04/19/25 14:33
Vital Signs
Blood pressure: 184/74
Initial and Last Documented VS:
Initial Vital Signs
Temp Pulse Resp BP Pulse Ox
97.7 F 86 20 204/103 98
04/19/25 13:55 04/19/25 13:55 04/19/25 13:55 04/19/25 13:55 04/19/25 13:55
Last Documented Vital Signs
Temp Pulse Resp BP Pulse Ox
97.7 F 69 12 174/82 99
04/19/25 13:55 04/19/25 15:45 04/19/25 15:45 04/19/25 16:07 04/19/25 15:45
MDM/Problems Addressed
Differential Diagnosis Includes:
Not limited to: Medication noncompliance, acute dehydration, viral illness hypertensive urgency, hypertensive emergency, etc.
MDM/Problems Addressed:
79-year-old male with a history of hypertension who presented to the ED feeling 'off� with elevated blood pressures at home without chest pain, shortness of breath, or neurological symptoms.
On arrival, his BP was elevated at 204/103, though his vital signs remained otherwise stable throughout the visit. The patient appeared well, was in no acute distress, and had a normal cardiovascular and pulmonary exam. Neurologically, he showed no
deficits, and a normal EKG showed no signs of acute ischemia.
Basic labs revealed no evidence of end-organ damage.
Impression is hypertension. His BP has decreased to 174/82 without intervention.No evidence of end organ damage, hypertensive emergency or the need for IV antihypertensive therapy. Feel stable for discharge home w/ strict return precautions. He was
advised to follow up with cardiology and/or primary care for ongoing management of his hypertension and to continue with antihypertensive medications and outpatient care for further monitoring and treatment.
Chronic conditions affecting care:
Hypertension, atrial flutter on Eliquis
Acute Exacerbation and/or Progression of Chronic Illness:
Acutely hypertensive
*Pulse Oximetry
SaO2: 98
Oxygen Mode of Delivery: Room air
Patient hypoxic: no
*EKG
Interpreted by ED Provider?: Yes
EKG Intrepretation Date: 04/19/25
Interpretation: abnormal
Comparison EKG: changes noted
Heart Rate: 83
Rate: normal
Rhythm: sinus
[place]: normal axis
Interval: normal QT interval
QRS Pattern: normal QRS
Ischemia: non-specific ST changes
*Accounts Payable Analyst Interpretation
Rate: normal
Interpretation: normal
Heart Rate: 86
Rhythm: sinus
*Critical Care Note
Total Time (30-74mins, 75-104mins- exclusive of procedures): Not Applicable
ED Attending Note
-
Portions of this chart may have been created with voice recognition software.� Occasional wrong word or��sound alike� substitutions may have occurred due to the inherent limitations of voice recognition software.
Discharge Plan
Departure
Patient Disposition: Home (Routine Discharge)
Date of Disposition: 04/19/25
Time of Disposition: 15:57
Patient with high blood pressure during this ER visit?: Yes
Condition: Good
Discharge Problem:
Hypertension
Instructions: High Blood Pressure (DC), BLOOD PRESSURE
Prescriptions:
No Action
sotalol 80 mg Tablet
80 mg PO BID
Eliquis 5 mg Tablet
5 mg PO BID
magnesium oxide 400 mg magnesium Tablet
400 mg PO DAILY
glucosamine sulfate [Glucosamine] 500 mg Tablet
500 mg PO DAILY
ascorbic acid (vitamin C) [Vitamin C] 500 mg Tablet
500 mg PO DAILY
cholecalciferol (vitamin D3) [Vitamin D3] 25 mcg (1,000 unit) Tablet
25 mcg PO DAILY
spironolactone 25 mg Tablet
25 mg PO DAILY Qty: 30 0RF
loratadine 10 mg Tablet
10 mg PO DAILY Qty: 0 0RF
clobetasol 0.05 % Ointment
1 applic topical BID Qty: 30 0RF
atorvastatin 40 mg Tablet
40 mg PO QPM Qty: 30 0RF
prednisone 10 mg Tablet
30 mg PO DAILY Qty: 3 0RF
aspirin 81 mg Tablet,Chewable
81 mg PO DAILY Qty: 0 0RF
dapagliflozin propanediol 10 mg Tablet
10 mg PO DAILY Qty: 30 0RF
polyethylene glycol 3350 17 gram Powder In Packet
17 g PO DAILY Qty: 0 0RF
pantoprazole 40 mg Tablet,Delayed Release (Dr/Ec)
40 mg PO DAILY Qty: 30 0RF
metoprolol succinate 25 mg Tablet Extended Release 24 Hr
25 mg PO BID Qty: 30 0RF
Referrals:
Nando Rivera MD [Active, Cardiology] - Next open appointment
Raiza Virgen MD [Family Provider, Family Practice]
Activity Restrictions/Additional Instructions:
RETURN TO THE EMERGENCY DEPARTMENT WITH ANY SEVERE HEADACHE OR NECK PAIN NUMBNESS/TINGLING OR WEAKNESS IN EXTREMITIES, CHEST PAIN OR SHORTNESS OF BREATH, DIZZINESS OR SPEECH DIFFICULTIES, WORSENING IN CURRENT SYMPTOMS, OR ANY OTHER CONCERNS
- As discussed your blood pressure did improve while in the emergency department today without medication. However, it remains elevated at 176/81.
- Your lab work showed no acute abnormalities.
- Please stay well-hydrated at home. Continue to take medications as prescribed.
- Follow-up with cardiology for further evaluation/management to ensure that your symptoms are improving. You may require changes to your blood pressure medication regimen.
Monitor your symptoms closely and return to the emergency department with any acute worsening/new symptoms or any other concerns
Interventions
Interventions:
*Risk Screen - Suicide Last Done: 04/19/25 13:55
*General Assessment Last Done: 04/19/25 13:55
*Neglect/Abuse Screening Last Done: 04/19/25 13:55
*ED COVID-19 Vaccine History Last Done: 04/19/25 13:55
*ED Influenza Vaccine History Last Done: 04/19/25 13:55
[facility] Risk Assessment Tool Last Done: 04/19/25 13:55
*Nursing Disposition Last Done: 04/19/25 16:07
ED- Cardiac Assessment Last Done: 04/19/25 14:40
ED- Neurological Assessment Last Done: 04/19/25 14:40
ED- Pulmonary Assessment Last Done: 04/19/25 14:40
Discharge Date and Time
Discharge Date/Time: 04/19/25 16:08
Print Language: [place]
[2025-04-19 14:30] VITALS: BP 184/74
[2025-04-19 14:42] LABS: Hematocrit 46.6 % (39.0-52.0); Hemoglobin 14.9 g/dL (13.0-18.0); Mean Corp Hgb Conc. 32.0 g/dL (33.0-37.0); Mean Corpuscular Volume 87.1 fL (80.0-94.0); Nucleated Red Blood Cells % 0 % (-); Platelet Count 296 10^3/uL (130-400); Red Cell Dist. Width 15.5 % (11.5-14.5)
[2025-04-19 15:00] VITALS: BP 176/81
[2025-04-19 15:28] LABS: ALT (SGPT) 54 U/L (0-50); AST (SGOT) 46 U/L (17-59); Albumin 4.9 g/dl (3.5-5.0); Alkaline Phosphatase 74 U/L (38-126); Blood Urea Nitrogen 22 mg/dl (9-20); Calcium 9.8 mg/dl (8.4-10.2); Carbon Dioxide 26 mmol/L (22-30); Chloride 98 mmol/L (98-107); Estimated Creatinine Clearance 61 ml/min; Glucose 159 mg/dl (70-99); Potassium 5.0 mmol/L (3.5-5.1); Sodium 134 mmol/L (135-145); Total Protein 8.0 g/dl (6.3-8.2); eGFR > 60.00
[2025-04-19 16:07] VITALS: BP 174/82
== END 2025-04-19 16:08 | disposition home or self-care (01) ==
LOC: EMR 13:52
PROVIDERS: Physician Assistant; EMERGENCY PHYSICIAN Emergency Medicine; FAMILY PHYSICIAN Family Medicine
DX: I10 Essential (primary) hypertension (principal); I48.92 Unspecified atrial flutter; Z79.01 Long term (current) use of anticoagulants; Z79.899 Other long term (current) drug therapy; Z90.49 Acquired absence of other specified parts of digestive tract
CPT/HCPCS: 99284; 80053; 85025; 93005